=== PATIENT | female | born 1960 ===

== ENCOUNTER → 2020-07-22 10:40 | Outpatient (BNVA) | payer BC, SELFPAY | PROVIDERS: PCP Internal Medicine; Visit Provider Obstetrics & Gynecology | DX: Z76.89 Persons encountering health services in other specified circumstances (principal) ==

== ENCOUNTER → 2020-08-24 13:34 | Outpatient (BNVA) | payer BC, SELFPAY | PROVIDERS: PCP Internal Medicine; Visit Provider Physician Assistant ==

== ENCOUNTER 2020-12-03 12:55 | Outpatient (REF) | payer BC, SELFPAY ==
[2020-12-03 13:27] LABS: COVID-19 Test Negative (Negative)
== END 2020-12-03 12:56 | disposition home or self-care (01) ==
LOC: HO.LAB 12:55
PROVIDERS: Visit Provider Internal Medicine
DX: Z20.822 Contact with and (suspected) exposure to COVID-19 (principal)
CPT/HCPCS: 36415; 87635; C9803

== ENCOUNTER 2021-01-19 16:34 | Outpatient (REF) | payer BC, SELFPAY ==
--- NOTE | ~2021-01-19 | XR_ITS ---
EXAMINATION: XR RIBS, RIGHT CLINICAL INFORMATION: Pleurodynia. COMPARISON: Chest radiographs 12/03/2019, 09/22/2017. TECHNIQUE: Frontal view chest and 3 views right ribs are obtained for a total of 4 views. FINDINGS: There is no visible right rib fracture or rib destructive process. The lungs are clear. There is no pneumothorax or pleural reaction. No airspace consolidation or ground-glass opacity. The costophrenic sulci are clear. The heart is normal in size. The hilar and mediastinal contours are normal. No visible acute bony abnormality. There are degenerative changes thoracic spine. XR/XR ribs RT min 3V w CXR1V IMPRESSION: Unremarkable examination.
== END 2021-01-19 16:35 | disposition home or self-care (01) ==
LOC: HO.XRAY 16:34
PROVIDERS: PCP Internal Medicine; Visit Provider Physician Assistant
DX: R07.81 Pleurodynia (principal)
CPT/HCPCS: 71101

== ENCOUNTER 2021-01-26 12:22 | Outpatient (REF) | payer BC, SELFPAY ==
--- NOTE | ~2021-01-26 | XR_ITS ---
EXAMINATION: XR THORACIC SPINE CLINICAL INFORMATION: Thoracic radiculopathy. COMPARISON: Chest radiograph 12/03/2019 TECHNIQUE: 3 views of the thoracic spine were obtained. FINDINGS: There is a mild scoliosis convex to the left. Mild degenerative changes are present with some minimal endplate disease. Disc spaces are relatively well preserved as are vertebral heights. Apparent spinal lines appear normal. No bony destructive lesions or acute fractures are seen. XR/XR thoracic spine 3V IMPRESSION: Mild degenerative changes as described above..
== END 2021-01-26 12:23 | disposition home or self-care (01) ==
LOC: HO.XRAY 12:22
PROVIDERS: PCP Internal Medicine; Visit Provider Physician Assistant
DX: M54.14 Radiculopathy, thoracic region (principal)
CPT/HCPCS: 72072

== ENCOUNTER 2021-02-02 13:23 | Outpatient (REF) | payer BC, SELFPAY ==
--- NOTE | ~2021-02-02 | CT_ITS ---
EXAMINATION: CT CHEST WITHOUT CONTRAST CLINICAL INFORMATION: Pain COMPARISON: Previous chest, rib and thoracic spine radiograph x-ray earlier this month TECHNIQUE: Multidetector volumetric CT imaging of the chest was done. Axial MIP volume rendering provided. Sagittal and coronal reformatted images were obtained. This CT examination was performed using dose optimization techniques as appropriate, variously including the following: *Automated exposure control *Adjustment of mA and/or kV according to patient size (this includes techniques or standardized protocols for targeted exams where dose is matched to indication/reason for exam; i.e. extremities or head) *Use of iterative reconstruction technique DLP: 10 mGy-cm FINDINGS: SECURITY ASSESSOR: Unremarkable LUNGS: There is a small 2 mm peripheral or subpleural right upper lobe nodule adjacent to the minor fissure axial image 227 series 8. This probably represents a subpleural lymph node. The lungs are otherwise clear. MEDIASTINUM: There is mild coronary artery calcification. The mediastinum is otherwise normal. PLEURA: There is no pleural effusion. No pleural mass or thickening. There is a small posterior right diaphragmatic hernia sac. AXILLA: No lymphadenopathy. UPPER ABDOMEN: There are small stones in the upper pole of the right kidney. OSSEOUS STRUCTURES: There is slight loss of height of superior endplate of the T12 vertebral body and increased sclerosis suggestive of a mild compression fracture. This may be recent. CT/CT chest wo con IMPRESSION: Mild probably recent T12 vertebral body compression fracture. Small 2 mm right pulmonary nodule. According to the UPDATED 2017 Fleischner Society recommendations, the advised follow-up imaging for less than 6 mm nodule: Low risk, no chest CT follow-up and high risk, optional chest CT follow-up in one year. Mild coronary artery calcification. Small right renal stones.
== END 2021-02-02 13:24 | disposition home or self-care (01) ==
LOC: HO.CT 13:23
PROVIDERS: PCP Internal Medicine; Visit Provider Internal Medicine
DX: R10.9 Unspecified abdominal pain (principal)
CPT/HCPCS: 71250

== ENCOUNTER 2021-02-16 11:26 | Outpatient (REF) | payer BC, SELFPAY ==
[2021-02-16 13:50] LABS: Alanine Aminotransferase 31 U/L (0-31); Albumin Level 4.3 g/dL (3.5-5.0); Alkaline Phosphatase 110 U/L (39-117); Anion Gap 13 (12-20); Aspartate Amino Transferase 26 U/L (5-31); Bilirubin Total 0.5 mg/dL (0.0-1.0); Blood Urea Nitrogen 12 mg/dL (9-16); Calcium 9.4 mg/dL (8.4-10.2); Carbon Dioxide 26 mmol/L (22-29); Chloride 106 mmol/L (96-108); Estimated Glomerular Filt Rate > 60; Glucose Random 89 mg/dL (60-115); Potassium 4.2 mmol/L (3.3-5.1); Sodium 141 mmol/L (135-145); Total Protein 6.9 g/dL (6.5-8.0)
[2021-02-16 14:12] LABS: Vitamin D 25-OH Total 26.4 ng/mL (>30)
== END 2021-02-16 11:27 | disposition home or self-care (01) ==
LOC: HO.LAB 11:26
PROVIDERS: PCP Internal Medicine; Visit Provider Internal Medicine Endocrinology, Diabetes & Metabolism
DX: M80.80XS Other osteoporosis with current pathological fracture, unspecified site, sequela (principal)
CPT/HCPCS: 36415; 80053; 82306

== ENCOUNTER 2021-02-17 11:40 | Outpatient (REF) | payer BC, SELFPAY ==
[2021-02-22 15:22] LABS: N-Telopeptide 49 (see note); NTXCreaRU 77 mg/dL (20-275)
== END 2021-02-17 11:41 | disposition home or self-care (01) ==
LOC: HO.LNP 11:40
PROVIDERS: Visit Provider Internal Medicine Endocrinology, Diabetes & Metabolism
DX: M80.80XS Other osteoporosis with current pathological fracture, unspecified site, sequela (principal)
CPT/HCPCS: 82523

== ENCOUNTER 2021-02-24 12:27 | Outpatient (REF) | payer BC, SELFPAY ==
[2021-02-26 08:24] LABS: HBc Num1 0.07 S/CO (0.00-0.79); HBsAGNum1 0.16 S/CO (0.00-0.99); Hepatitis B Core Antibody Nonreactive (Nonreactive); Hepatitis B Surface Antigen Negative (Negative); ~HepC Num1 0.19 S/CO (0.00-0.79); ~Hepatitis C Antibody Nonreactive (Nonreactive)
[2021-02-26 08:41] LABS: HBS Num1 > 1000.00 mIU/mL (0-7.99); ~Hepatitis B Surface Antibody REACTIVE (Nonreactive)
[2021-03-03 08:11] LABS: HCV Log PCR <1.18 NOT DETECTED Log IU/mL (NOT DETECTED); HepC Viral Load <15 NOT DETECTED IU/mL (NOT DETECTED)
== END 2021-02-24 12:28 | disposition home or self-care (01) ==
LOC: HO.LAB 12:27
PROVIDERS: PCP Internal Medicine; Visit Provider Physician Assistant
DX: Z01.84 Encounter for antibody response examination (principal); Z11.3 Encounter for screening for infections with a predominantly sexual mode of transmission; Z11.59 Encounter for screening for other viral diseases; Z91.89 Other specified personal risk factors, not elsewhere classified
CPT/HCPCS: 36415; 86704; 86706; 86803; 87340; 87522

== ENCOUNTER 2021-03-24 11:00 | Outpatient (RCR) | payer BC, SELFPAY ==
--- NOTE | 2021-03-11 13:43 | MHC.PT.EP ---
[facility] [place] Office [place] Office [place] Office [address] Norma Ordaz [address] [phone] F: [phone] F: [phone] F: [phone] F: [phone] Physical Therapy Plan of Care Date of Evaluation: Date of Surgery: N/A Diagnosis: s/p T12 fracture Assessment: Pt is a 60 year old female who presents to therapy with symptoms of insidious pain in the back that wraps around the ribs s/p a T10 fracture. Self reported activity limitations include working walking, swimming, lifting heavy objects and dancing. Pt presents with increased thoracic kyphosis, rounded shoulders and forward head. Pt received education on posture and was given scap squeezes to do at home. Pt should benefit from increasing rib mobility and increasing strength in the UE's, periscap region, and posterior chain to help support the back. She will be seen 2x a week for 4 weeks and will be reassessed if further treatment is necessary. Frequency and Duration: The patient will be seen 2x a week for 4 weeks. Short Term Goals: Pt will be consistent with HEP in order to maximize benefits of therapy in 2 weeks. Pt will decrease pain at rest from a 4 to a 1 in order to return to daily activities in 2 weeks. Retirement Goals: Pt will decrease pain from 8 at worst to a 4 with activity in 4 weeks in order to show improvement in pain reduction in order to return to work. Pt will be able to walk > 30 min without pain in 4 weeks in order to return to daily walking routine and work. Treatment Plan: Modalities to reduce pain, spasms and effusion. Manual therapy to restore motion and function. Therapeutic exercise to improve strength and flexibility. Neuromuscular re-education for posture and balance. Therapeutic activities to return to functional activities of daily living. Electronically signed by: Mira Griffith PT, DPT Please sign and return to therapist. Thank you for your referral.
== END 2021-04-16 10:31 | disposition home or self-care (01) ==
LOC: HO.PT 11:00
PROVIDERS: PCP Internal Medicine; Visit Provider Internal Medicine
DX: M54.14 Radiculopathy, thoracic region (principal)
CPT/HCPCS: 97162; 97530; 97535

== ENCOUNTER → 2021-05-20 09:48 | Outpatient (BNVA) | payer BC, SELFPAY | PROVIDERS: PCP Internal Medicine; Visit Provider Obstetrics & Gynecology ==

== ENCOUNTER 2021-08-04 09:06 | Outpatient (REF) | payer BC, SELFPAY ==
--- NOTE | ~2021-08-04 | CT_ITS ---
EXAMINATION: CT THORACIC SPINE WITHOUT CONTRAST CLINICAL INFORMATION: Trauma. Right compression fracture. COMPARISON: Thoracic spine 01/26/2021 TECHNIQUE: Axial 2 mm thin and reformatted 2 mm thin sagittal coronal images of thoracic spine were obtained without contrast. This CT examination was performed using dose optimization techniques as appropriate, variously including the following: *Automated exposure control *Adjustment of mA and/or kV according to patient size (this includes techniques or standardized protocols for targeted exams where dose is matched to indication/reason for exam; i.e. extremities or head) *Use of iterative reconstruction technique DLP: 427 mGy-cm FINDINGS: On reconstructed thoracic spine the vertebral heights, alignment and disc heights are normal. No visible acute fracture, dislocation or subluxation seen. There are mild superior endplate deformities T2 and T3 vertebra. Rest of the vertebral heights and alignment is maintained normal. There is superior endplate Schmorl's node T11 vertebra. There is loss of T2-T3, T3-T4 and T4-T5 disc heights with mild ventral spondylosis. No lytic or sclerotic process seen. There is no evidence of disc bulge, herniation or spinal stenosis at any of the disc levels. CT/CT thoracic spine wo con IMPRESSION: Superior endplate deformity T12 and T3 vertebra likely old. Mild ventral spondylosis upper dorsal spine. No visible acute fracture or dislocation seen.
== END 2021-08-04 09:07 | disposition home or self-care (01) ==
LOC: HO.CT 09:06
PROVIDERS: PCP Internal Medicine; Visit Provider Internal Medicine
DX: S22.000D Wedge compression fracture of unspecified thoracic vertebra, subsequent encounter for fracture with routine healing (principal)
CPT/HCPCS: 72128

== ENCOUNTER 2021-11-02 13:29 | Outpatient (REF) | payer BC, SELFPAY ==
[2021-11-02 13:57] LABS: Binax Internal Control QC Valid; Binax Now Covid-19 Ag Negative (Negative); Binax Performed by: HO.BONILM
== END 2021-11-02 13:30 | disposition home or self-care (01) ==
LOC: HO.HMGCLDS 13:29
PROVIDERS: Visit Provider Internal Medicine
DX: Z13.89 Encounter for screening for other disorder (principal)

== ENCOUNTER 2021-11-03 21:33 | Emergency (ER) | payer BC, SELFPAY ==
[2021-11-03 21:39] VITALS: BP 160/90; PULSE 93; RESP 19; TEMP 37.3; O2SAT 99; BMI 27.8
[2021-11-03 22:01] LABS: MANUAL DIFF FLAG NO
[2021-11-03 22:03] LABS: Basophils Percent Auto 0.2 % (0-2); Hematocrit 41.3 % (37.0-47.0); Hemoglobin 13.9 g/dl (12.0-16.0); Imm Gran Abs Auto 0.05 X10*3/uL (0.00-0.03); Imm Gran Pct Auto 0.4 % (0.0-0.4); Lymphocytes Absolute Auto 3.2 X10*3/uL (1.2-4.9); Mean Corpuscular HGB Conc 33.7 g/dl (31.0-35.0); Monocytes Absolute Auto 0.9 X10*3/uL (0.1-1.2); Monocytes Percent Auto 7.5 % (2-11); Neutrophils Absolute Auto 8.1 x10*3/uL (2.0-8.3); Neutrophils Percent Auto 65.9 % (45-73); Platelet Count 248 X10*3/uL (160-400); Red Cell Distribution Width 13.2 % (11.0-16.0); White Blood Count 12.4 X10*3/uL (4.8-10.8)
--- NOTE | 2021-11-03 22:17 | ED_ITS ---
HPI - General Adult General Chief complaint: Dental/Oral Stated complaint: facial infection,red and swollen Time Seen by Provider: 11/03/21 22:11 Source: patient Mode of arrival: ambulatory Limitations: no limitations History of Present Illness HPI narrative: Patient is a 61 year old female presenting to the emergency department today with left sided facial swelling. 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 Patient states that she was seen at an [facility] yesterday and they gave her a ZPack but the infection hasn't gotten better. Patient denies any dizziness, lightheadedness, abdominal pain, nausea, vomiting, fever, chills, blurry vision, double vision, loss of vision, chest pain, difficulty breathing, shortness of breath, back pain, night sweats, pain with urination, increased urinary frequency, increased urinary urgency, blood in her urine or stool, syncope or a near syncopal episode, recent trauma or falls, bowel incontinence, bladder incontinence, bowel retention, bladder retention, or any other complaints at this time. Onset (ago): day(s) Location: face Radiation: non-radiation Severity: mild Severity scale (1-10): 3 Quality: dull Pain Consistency: constant Relieving factors: none Exacerbating factors: none Associated symptoms: denies other symptoms Treatments prior to arrival: none Related Data Home Medications Medication Instructions Recorded Confirmed budesonide-formoterol HFA 160 2 puff INHALATION BID 05/05/20 02/16/21 mcg-4.5 mcg/actuation aerosol inhaler (Symbicort) Previous Rx's Medication Instructions Recorded ibuprofen 800 mg tablet 800 mg PO Q8H 10 Days #30 tab 01/26/21 alendronate 70 mg tablet 70 mg PO QWEEK 30 Days #5 tab 02/16/21 calcium citrate 500 mg PO DAILY 30 Days #60 tab 02/16/21 cholecalciferol (vitamin D3) 25 25 mcg PO DAILY 30 Days #30 cap 02/16/21 mcg (1,000 unit) capsule tizanidine 4 mg tablet 4 mg PO TID PRN 10 Days #30 tab 05/05/21 erythromycin 5 mg/gram (0.5 %) eye 0.5 inch OPHTHALMIC (EYE) TID #1 g 08/02/21 ointment lorazepam 0.5 mg tablet 0.5 mg PO TID PRN 15 Days #45 tab 08/02/21 meloxicam 15 mg tablet (Mobic) 15 mg PO DAILY #14 tab 08/02/21 montelukast 10 mg tablet 10 mg PO DAILY 30 Days #30 tab 10/29/21 albuterol sulfate 90 mcg/actuation 2 puff INHALATION Q4-6H #6.7 g 11/02/21 aerosol inhaler (ProAir HFA) azithromycin 250 mg tablet See Rx Instructions PO .COMPLEX #6 11/02/21 tab doxycycline hyclate 100 mg capsule 100 mg PO BID 7 Days #14 cap 11/03/21 Allergies Allergy/AdvReac Type Severity Reaction Status Date / Time amoxicillin [AMOXICILLIN] Allergy Unknown ANAPHYLAXIS Verified 11/02/21 12:52 codeine [CODEINE] Allergy Unknown UNKNOWN Verified 11/02/21 12:52 guaifenesin [Mucinex] Allergy Unknown Unknown Verified 11/02/21 12:52 Iodinated Contrast Media Allergy Unknown ANAPHYLAXIS Verified 11/02/21 12:52 [IV CONTRAST] levalbuterol [From XOPENEX] Allergy Unknown DIFFICULTY Verified 11/02/21 12:52 BREATHING naproxen Allergy Unknown Unknown Verified 11/02/21 12:52 penicillin V Allergy Unknown anaphylaxis Verified 11/02/21 12:52 Penicillins [PENICILLINS] Allergy Unknown ANAPHYLAXIS Verified 11/02/21 12:52 Codeine Phosphate Allergy Unknown Unknown Uncoded 11/02/21 12:52 ct dye Allergy Unknown anaphylaxis Uncoded 11/02/21 12:52 IV Contrast Allergy Unknown Unknown Uncoded 11/02/21 12:52 seasonal/environmental Allergy Unknown Unknown Uncoded 11/02/21 12:52 tomatoes,OJ,vinegar Allergy Unknown Unknown Uncoded 11/02/21 12:52 Review of Systems Constitutional: Constitutional: Reports no additional constitutional complaints, Denies chills, Denies fever(s) and Denies night sweats Eyes: Eyes: Reports no additional eye complaints, Denies blurry vision, Denies change in vision, Denies diplopia, Denies eye discharge, Denies loss of vision and Denies eye pain ENT: Denies dizziness Comments: left sided facial swelling Cardiovascular: Cardiovascular: Reports no additional cardiovascular complaints, Denies chest pain, Denies lightheadedness, Denies Loss of Consciousness and Denies dyspnea Respiratory: Respiratory: Reports no additional respiratory complaints and Denies dyspnea Gastrointestinal: Gastrointestinal: Reports no additional gastrointestinal complaints, Denies abdominal pain, Denies melena, Denies hematochezia, Denies change in bowel habits and Denies change in stool character Genitourinary: Genitourinary: Denies hematuria, Denies urinary frequency, Denies dysuria, Denies urinary incontinence, Denies urinary hesitancy and Denies urinary urgency Musculoskeletal: Musculoskeletal: Reports no additional musculoskeletal complaints, Denies numbness and Denies tingling Neurologic: Denies dizziness, Denies loss of vision, Denies numbness and Den ies tingling Psychiatric: Psychiatric: Reports no additional psychiatric complaints Endocrine: Endocrine: Reports no additional endocrine complaints Hematologic/Lymphatic: Hematologic/Lymphatic: Reports no additional hematologic/lymphatic complaints Allergic/Immunologic: Allergic/Immunologic: Reports no additional allergic/immunologic complaints PMFSH Past Medical History Attestation statement: The following information was validated with the patient. 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 Sexual orientation: Straight/Heterosexual Gender identity: Female Physical Exam ED Vital Signs: Vital Signs - 24 hr 11/03/21 21:39 Temperature 99.2 F Pulse Rate 93 Respiratory Rate 19 Blood Pressure 160/90 H Pulse Oximetry 99 BMI result Body Mass Index 27.8 Const General: cooperative, no acute distress, alert and awake Nutritional Appearance: well nourished Orientation/consciousness: patient oriented x3 Limitations: no limitations HENMT Head: Yes normal to inspection and Yes atraumatic Ears: hearing grossly normal bilaterally and external ears normal General nose exam: Normal external nose present, no nasal discharge noted and no epistaxis Face and sinus: Yes normal facial exam, No abrasion and No laceration Mouth: Normal oral and palatal mucosa present, no drooling and no muffled voice Eyes General: appearance normal, both eyes and all related structures Periorbital: periorbital findings normal Eyelids: Yes eyelids normal Conjunctivae: conjunctivae normal Pupils: Equal, round and reactive pupils present EOM: EOMs intact bilaterally Neck Neck: Yes normal visual inspection, Yes full ROM and Yes no lymphadenopathy Chest Chest palpation & inspection: normal inspection of the chest Resp Effort & Inspection: normal respiratory effort and able to speak in complete sentences Auscultation: clear to auscultation bilaterally Cardio Rate: regular rate Rhythm: regular rhythm GI Inspection: Yes normal to inspection Skin Other: minimal left sided facial swelling with an abscess to the left lower cheek appreciated. Small wound just inferior to the abscess seen. Neuro General: patient oriented x3 and moves all extremities Cranial nerves: Yes Equal, round and reactive pupils present Cognition (Neuro): normal cognition Motor exam (neuro): 5/5 motor strength present throughout Sensory Exam: Normal double simultaneous stimulation for sensation Coordination: [id number] test normal Extrem General: Yes normal to inspection, Yes full ROM and Yes capillary refill normal Psych Appearance: grossly normal Mental Status: mental status grossly normal Affect: normal affect Attitude: cooperative Thought process: Normal thought process present Thought content: Normal thought content present Insight: Good insight present (Psych) Procedures Abscess I/D Site: face Side (if applicable): left Local Anesthetic: lidocaine 2% Amount of anesthesia used (mL): 5 Technique: needle aspiration Sent for culture/gram staining?: Yes Medical Decision Making [facility] Narrative Medical decision making narrative: Patient is a 61 year old female presenting to the emergency department today with left sided facial swelling. Patient's physical exam showed a small facial wound to the inferior aspect of the left cheek and mild swelling to the left cheek. Patient's blood work showed an elevated WBC count but was otherwise unremarkable. I explained my physical exam findings as well as all test results to the patient. I answered all questions asked by the patient. The abscessed area on the patient's left cheek was drained by Dr. Wise, per procedure note, without incident. Wound culture was sent. I stressed the importance of the patient taking her medication as prescribed. Specifically, her new antibiotic that covers for MRSA. I stressed the importance of the patient following up with her primary care provider. I stressed the importance of the patient returning to the emergency department immediately if her symptoms were to worsen or if she were to develop any dizziness, shortness of breath, difficulty breathing, chest pain, blurry vision, loss of vision, nausea, vomiting, abdominal pain, fever, chills, back pain, or any other complaints. Patient verbalized agreement and understanding with this treatment plan and discharge. Differential Diagnosis Differential Diagnosis: facial abscess, facial cellulitis Medical Records Medical records reviewed: Yes I reviewed the patient's medical records. Lab Data Result diagrams: 11/03/21 21:56 11/03/21 21:56 Labs: Lab Results 11/03/21 11/03/21 Range/Units 21:56 21:56 WBC 12.4 H (4.8-10.8) X10*3/uL RBC 4.80 (4.20-5.50) X10*6/uL Hgb 13.9 (12.0-16.0) g/dl Hct 41.3 (37.0-47.0) % MCV 86.0 (80.0-98.0) fL MCH 29.0 (27.0-33.0) pg MCHC 33.7 (31.0-35.0) g/dl RDW 13.2 (11.0-16.0) % Plt Count 248 (160-400) X10*3/uL MPV 10.0 (9.4-12.3) fL Immature Gran % (Auto) 0.4 (0.0-0.4) % Neut % (Auto) 65.9 (45-73) % Lymph % (Auto) 26.0 (20-40) % [place] % (Auto) 7.5 (2-11) % Eos % (Auto) 0.0 (0-4) % Baso % (Auto) 0.2 (0-2) % Lymph # (Auto) 3.2 (1.2-4.9) X10*3/uL [place] # (Auto) 0.9 (0.1-1.2) X10*3/uL Eos # (Auto) 0.0 (0.0-0.4) X10*3/uL Baso # (Auto) 0.0 (0.0-0.2) X10*3/uL Abs Immat Gran (auto) 0.05 H (0.00-0.03) X10*3/uL Absolute Neuts (auto) 8.1 (2.0-8.3) x10*3/uL Absolute Nucleated RBC 0.000 (0.0-0.012) X10*3/uL Nucleated RBC % (auto) 0.0 (0.0-0.2) /100WBC Sodium 137 (135-145) mmol/L Potassium 3.9 (3.3-5.1) mmol/L Chloride 102 (96-108) mmol/L Carbon Dioxide 27 (22-29) mmol/L Anion Gap 12 (12-20) BUN 16 (9-16) mg/dL Creatinine 0.74 (0.5-1.4) mg/dL Estim Creat Clear Calc 69.9 Estimated GFR > 60 Random Glucose 126 H (60-115) mg/dL Calcium 9.5 (8.4-10.2) mg/dL Discharge Plan Discharge Clinical Impression: Abscess of face Patient Disposition: Home, Self-Care Additional Instructions: Follow up with your primary care provider. Return to the emergency department immediately if your symptoms worsen or if you develop any dizziness, shortness of breath, difficulty breathing, chest pain, blurry vision, loss of vision, nausea, vomiting, abdominal pain, fever, chills, back pain, or any other complaints. Prescriptions: New doxycycline hyclate 100 mg capsule 100 mg PO BID 7 Days Qty: 14 0RF No Action cholecalciferol (vitamin D3) 25 mcg (1,000 unit) capsule 25 mcg PO DAILY 30 Days Qty: 30 6RF alendronate 70 mg tablet 70 mg PO QWEEK 30 Days Qty: 5 6RF tizanidine 4 mg tablet 4 mg PO TID PRN (Reason: muscle spasms) 10 Days Qty: 30 1RF lorazepam 0.5 mg tablet 0.5 mg PO TID PRN (Reason: anxiety) 15 Days Qty: 45 0RF Rx Instructions: Take ONLY NEEDED montelukast 10 mg tablet 10 mg PO DAILY 30 Days Qty: 30 0RF Rx Instructions: needs an appointment for refills ibuprofen 800 mg tablet 800 mg PO Q8H 10 Days Qty: 30 0RF albuterol sulfate [ProAir HFA] 90 mcg/actuation HFA aerosol inhaler 2 puff inhalation Q4-6H Qty: 6.7 0RF azithromycin 250 mg tablet See Rx Instructions PO .COMPLEX Qty: 6 0RF Rx Instructions: take 500 mg today (day 1), then 250 mg for 4 days (days 2-5) PO erythromycin 5 mg/gram (0.5 %) ointment 0.5 inch ophthalmic (eye) TID Qty: 1 0RF meloxicam [Mobic] 15 mg tablet 15 mg PO DAILY Qty: 14 0RF budesonide-formoterol [Symbicort] 160-4.5 mcg/actuation HFA aerosol inhaler 2 puff inhalation BID 0RF calcium citrate 250 mg calcium tablet 500 mg PO DAILY 30 Days Qty: 60 6RF Referrals: Tre Maldonado MD [Primary Care Provider] - 2 days Print Language: Peruvian
[2021-11-03 22:20] LABS: Anion Gap 12 (12-20); Blood Urea Nitrogen 16 mg/dL (9-16); Calcium 9.5 mg/dL (8.4-10.2); Carbon Dioxide 27 mmol/L (22-29); Chloride 102 mmol/L (96-108); Creatinine Clr Calc Pharmacy 69.9; Estimated Glomerular Filt Rate > 60; Glucose Random 126 mg/dL (60-115); Potassium 3.9 mmol/L (3.3-5.1); Sodium 137 mmol/L (135-145)
[2021-11-03] MEDS: Acetaminophen 325 MG TABLET 650 MG PO (23:09)
[2021-11-03] MEDS: Lidocaine HCl 2 % 20 ML VIAL 5 ML INFILTRATI (23:13)
== END 2021-11-03 23:20 | disposition home or self-care (01) ==
PROVIDERS: Emergency Provider Internal Medicine; PCP Internal Medicine
DX: L02.01 Cutaneous abscess of face (principal); L03.211 Cellulitis of face; Z86.14 Personal history of Methicillin resistant Staphylococcus aureus infection
CPT/HCPCS: 10060; 36415; 80048; 85025; 87071; 87077; 87186; 87205; 99284

== ENCOUNTER 2021-11-05 12:14 | Outpatient (REF) | payer BC, SELFPAY ==
[2021-11-06 08:42] LABS: Mumps Virus IgG Antibody >300.00 AU/mL
[2021-11-06 08:52] LABS: Rubeola IgG (Measles) >300.00 AU/mL
[2021-11-07 18:42] LABS: TS Negative Control Passed; TS Panel A 0; TS Panel B 0; TS Positive Control Passed; TSpotTB Negative (Negative)
[2021-11-08 08:28] LABS: HBc Num1 0.15 S/CO (0.00-0.79); HBsAGNum1 0.19 S/CO (0.00-0.99); Hepatitis B Core Antibody Nonreactive (Nonreactive); Hepatitis B Surface Antigen Negative (Negative)
[2021-11-08 08:46] LABS: HBS Num1 > 1000.00 mIU/mL (0-7.99); ~Hepatitis B Surface Antibody REACTIVE (Nonreactive)
== END 2021-11-05 12:15 | disposition home or self-care (01) ==
LOC: HO.LAB 12:14
PROVIDERS: PCP Internal Medicine; Visit Provider Internal Medicine
DX: Z28.39 Other underimmunization status (principal)
CPT/HCPCS: 36415; 86481; 86704; 86706; 86735; 86762; 86765; 86787; 87340

== ENCOUNTER 2022-03-09 15:37 | Outpatient (REF) | payer BC, SELFPAY ==
[2022-03-09 16:27] LABS: COVID-19 Test Negative (Negative)
== END 2022-03-09 15:38 | disposition home or self-care (01) ==
LOC: HO.LAB 15:37
PROVIDERS: Visit Provider Internal Medicine
DX: Z20.822 Contact with and (suspected) exposure to COVID-19 (principal)
CPT/HCPCS: 87635; C9803

== ENCOUNTER 2022-03-16 18:20 | Emergency (ER) | payer OTHER, BC, SELFPAY ==
[2022-03-16 18:25] VITALS: BP 138/82; PULSE 79; O2SAT 97
[2022-03-16 18:37] VITALS: BP 130/70; PULSE 66; RESP 18; TEMP 36.4; O2SAT 100; BMI 27.3
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
== END 2022-03-16 20:29 | disposition home or self-care (01) ==
PROVIDERS: Emergency Provider Emergency Medicine; PCP Internal Medicine
DX: S39.012A Strain of muscle, fascia and tendon of lower back, initial encounter (principal); V03.00XA Pedestrian on foot injured in collision with car, pick-up truck or van in nontraffic accident, initial encounter; Y93.F9 Activity, other caregiving; Y92.481 Parking lot as the place of occurrence of the external cause; Y99.0 Civilian activity done for income or pay
CPT/HCPCS: 99282; 99283

== ENCOUNTER 2022-03-21 15:03 | Outpatient (REF) | payer OTHER, BC, SELFPAY ==
--- NOTE | ~2022-03-21 | XR_ITS ---
EXAMINATION: XR LUMBOSACRAL SPINE CLINICAL INFORMATION: Low back pain. COMPARISON: 10/10/2013 lumbar spine radiographs. TECHNIQUE: Three views of the lumbosacral spine. FINDINGS: The vertebral bodies and posterior elements are normal. The disc spaces are preserved and the vertebral alignment is normal. The paraspinal soft tissues are normal. XR/XR lumbar spine 2-3V IMPRESSION: Unremarkable lumbar spine.
== END 2022-03-21 15:04 | disposition home or self-care (01) ==
LOC: HO.HMGCX 15:03
PROVIDERS: PCP Internal Medicine; Visit Provider Physician Assistant
DX: M54.50 Low back pain, unspecified (principal); M79.604 Pain in right leg
CPT/HCPCS: 72100

== ENCOUNTER 2022-03-22 11:39 | Outpatient (REF) | payer BC, SELFPAY ==
[2022-03-22 13:39] LABS: Phosphorus 3.6 mg/dL (2.7-4.5)
== END 2022-03-22 11:40 | disposition home or self-care (01) ==
LOC: HO.10HDL 11:39
PROVIDERS: Visit Provider Internal Medicine Endocrinology, Diabetes & Metabolism
DX: M81.0 Age-related osteoporosis without current pathological fracture (principal)
CPT/HCPCS: 36415; 84100

== ENCOUNTER 2022-05-24 17:29 | Outpatient (REF) | payer BC, SELFPAY ==
[2022-05-24 18:21] LABS: Influenza A PCR NEGATIVE (Negative); Influenza B PCR NEGATIVE (Negative); Resp Syncy Virus RNA Qual PCR NEGATIVE (Negative); SARS COV2 PCR INHOUSE NEGATIVE (Negative)
== END 2022-05-24 17:30 | disposition home or self-care (01) ==
LOC: HO.LNP 17:29
PROVIDERS: Visit Provider Emergency Medicine
DX: R68.89 Other general symptoms and signs (principal); Z20.822 Contact with and (suspected) exposure to COVID-19
CPT/HCPCS: 0241U

== ENCOUNTER 2022-05-26 08:55 | Outpatient (REF) | payer BC, SELFPAY ==
[2022-05-31 20:41] LABS: HPV mRNA E6/E7 rflx Not Detected (Not Detected)
== END 2022-05-26 08:56 | disposition home or self-care (01) ==
LOC: HO.LNP 08:55
PROVIDERS: Visit Provider Obstetrics & Gynecology
DX: Z01.419 Encounter for gynecological examination (general) (routine) without abnormal findings (principal)
CPT/HCPCS: 87624; 88142

== ENCOUNTER 2022-06-16 14:13 | Outpatient (REF) | payer BC, SELFPAY ==
--- NOTE | ~2022-06-16 | MM_ITS ---
EXAMINATION: MM SCREENING DIGITAL BREAST TOMOSYNTHESIS, BILATERAL CLINICAL INFORMATION: Screening. Asymptomatic. COMPARISON: Mammography: April 18, 2019 and studies dating back to February 26, 2013 TECHNIQUE: Digital breast tomosynthesis is performed in both the craniocaudal and mediolateral oblique views along with computer-aided detection (CAD). Synthesized 2D images are generated from the tomosynthesis. FINDINGS: There are scattered areas of fibroglandular density (ACR BI-RADS breast composition Category b). There is a stable parenchymal pattern of the left breast with no new abnormal dominant mass or suspicious grouping of microcalcifications. About the medial aspect of the right breast there is a 4 x 3 mm well-circumscribed density approximately 5 cm from the nipple for which targeted ultrasound evaluation is recommended. MM/MM tomosynthesis screening BI IMPRESSION: Right breast density medial aspect for further evaluation with ultrasound. ASSESSMENT: BI-RADS 0: Incomplete - Need Additional Imaging Evaluation RECOMMENDATION: Targeted ultrasound evaluation of the right breast. Radiology department staff will contact the patient for additional imaging. This patient's information was entered into a reminder system with a target due date for their next mammogram.
== END 2022-06-16 14:14 | disposition home or self-care (01) ==
LOC: HO.MAMMO 14:13
PROVIDERS: PCP Internal Medicine; Visit Provider Obstetrics & Gynecology
DX: Z12.31 Encounter for screening mammogram for malignant neoplasm of breast (principal)
CPT/HCPCS: 77063; 77067

== ENCOUNTER 2022-06-22 13:15 | Outpatient (REF) | payer BC, SELFPAY ==
--- NOTE | ~2022-06-22 | US_ITS ---
EXAMINATION: US DIAGNOSTIC ULTRASOUND BREAST, RIGHT CLINICAL INFORMATION: Small smooth nodule under 5 mm medial right breast at screening mammography. COMPARISON: Mammography 06/16/2022, 04/18/2019, 08/26/2016. TECHNIQUE: Ultrasound right breast is targeted to the upper inner breast using grayscale imaging and color Doppler without and with harmonics. FINDINGS: There is a circumscribed anechoic nodule 1:00 position 5 cm from nipple measuring 4 x 3 mm. There is no increased or decreased through transmission of sound. No associated color flow. Small cyst suspected. Results are discussed with the patient at time of visit. US/US breast RT limited IMPRESSION: -Probable cyst corresponding to small nodule on mammography. ASSESSMENT: BI-RADS 3: Probably Benign RECOMMENDATION: Diagnostic right mammography in 6 months. This patient's information was entered into a reminder system with a target due date for their next mammogram.
== END 2022-06-22 13:16 | disposition home or self-care (01) ==
LOC: HO.MAMMO 13:15
PROVIDERS: PCP Internal Medicine; Visit Provider Obstetrics & Gynecology
DX: R92.2 Inconclusive mammogram (principal)
CPT/HCPCS: 76642

== ENCOUNTER 2022-07-05 11:00 | Outpatient (RCR) | payer OTHER, SELFPAY ==
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
== END 2022-07-05 14:45 | disposition home or self-care (01) ==
LOC: HO.PT 11:00
PROVIDERS: Visit Provider Physician Assistant
DX: M54.50 Low back pain, unspecified (principal)
CPT/HCPCS: 97014; 97110; 97140; 97161; 97530

== ENCOUNTER → 2022-07-27 13:44 | Outpatient (BNVA) | payer BC, SELFPAY | PROVIDERS: PCP Internal Medicine; Visit Provider Internal Medicine Endocrinology, Diabetes & Metabolism | DX: Z13.89 Encounter for screening for other disorder (principal) ==

== ENCOUNTER 2022-09-20 14:00 | Outpatient (RCR) | payer OTHER, BC, SELFPAY ==
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
== END 2022-09-29 14:43 | disposition home or self-care (01) ==
LOC: HO.PT 14:00
PROVIDERS: PCP Internal Medicine; Visit Provider Internal Medicine
DX: M54.50 Low back pain, unspecified (principal)
CPT/HCPCS: 97110; 97112; 97162

== ENCOUNTER 2022-12-23 13:42 | Outpatient (REF) | payer BC, SELFPAY ==
--- NOTE | ~2022-12-23 | MM_ITS ---
EXAMINATION: MM DIAGNOSTIC DIGITAL BREAST TOMOSYNTHESIS, RIGHT US BREAST, LIMITED, TARGETED, RIGHT CLINICAL INFORMATION: Six-month follow-up question cyst. COMPARISON: Mammography: 06/22/2022 and studies dating back to 12/16/2011 TECHNIQUE: Digital breast tomosynthesis is performed in both the craniocaudal and mediolateral oblique views along with computer-aided detection (CAD). Synthesized 2D images are generated from the tomosynthesis. Targeted right breast ultrasound. FINDINGS: MAMMOGRAM, RIGHT: There are scattered areas of fibroglandular density (ACR BI-RADS breast composition Category b). There is persistence of a 3 mm rounded density about the medial aspect of the right breast. No new abnormal dominant masses or suspicious grouping of microcalcifications identified. ULTRASOUND, RIGHT: Targeted ultrasound evaluation of the right breast at the 1 o'clock position approximately 5 cm from the nipple demonstrates a 3 x 2 x 4 mm well-circumscribed hypoechoic/anechoic lesion without internal vascularity and with increased through sound transmission. This is stable compared to most previous study and has the characteristics of a cyst. No abnormal distal sound shadowing is seen. No edematous change within the surrounding parenchyma is noted. Results are discussed with the patient at time of visit. MM/MM tomosynthesis diagnostic RT IMPRESSION: There are no significant changes from prior study. Appearance is of a simple cyst. ASSESSMENT: BI-RADS 2: Benign RECOMMENDATION: Routine annual mammography screening. This patient's information was entered into a reminder system with a target due date for their next mammogram.
== END 2022-12-23 13:43 | disposition home or self-care (01) ==
LOC: HO.MAMMO 13:42
PROVIDERS: PCP Internal Medicine; Visit Provider Obstetrics & Gynecology
DX: R92.2 Inconclusive mammogram (principal)
CPT/HCPCS: 76642; 77061; 77065

== ENCOUNTER 2023-03-13 09:59 | Outpatient (AMB) | payer BC, SELFPAY ==
--- NOTE | 2023-03-13 10:58 | AM.OFFWIN_ITS ---
Intake Vital Signs 03/13/23 11:04 Height 5 ft 1 in BP 120/60 Blood Pressure Location Rt brachial Position Sitting Pulse 89 Pulse Source Pulse Oximeter Temp 98.1 F Temp Source Temporal Artery Scan Pulse Oximetry (%) 96 Oxygen Delivery Method Room Air Intake Visit Reasons: EP infection in left eye (lobby) Intake Note: Pt is here c/o possible left eye infection. Pt states she had a stye on her eye on Monday and today it became worse. Pt also states the let side of her face is also swollen. Patient Tobacco Use Status: Never used Tobacco Allergies amoxicillin [AMOXICILLIN] Allergy (Unknown, Verified 03/13/23 11:03) ANAPHYLAXIS codeine [CODEINE] Allergy (Unknown, Verified 03/13/23 11:03) UNKNOWN guaifenesin [Mucinex] Allergy (Unknown, Verified 03/13/23 11:03) Unknown Iodinated Contrast Media [IV CONTRAST] Allergy (Unknown, Verified 03/13/23 11:03) ANAPHYLAXIS levalbuterol [From XOPENEX] Allergy (Unknown, Verified 03/13/23 11:03) DIFFICULTY BREATHING naproxen Allergy (Unknown, Verified 03/13/23 11:03) Unknown penicillin V Allergy (Unknown, Verified 03/13/23 11:03) anaphylaxis Penicillins [PENICILLINS] Allergy (Unknown, Verified 03/13/23 11:03) ANAPHYLAXIS lidocaine Adverse Reaction (Unknown, Verified 03/13/23 11:03) Irritated, itchy Codeine Phosphate Allergy (Unknown, Uncoded 03/13/23 11:03) Unknown ct dye Allergy (Unknown, Uncoded 03/13/23 11:03) anaphylaxis IV Contrast Allergy (Unknown, Uncoded 03/13/23 11:03) Unknown seasonal/environmental Allergy (Unknown, Uncoded 03/13/23 11:03) Unknown tomatoes,OJ,vinegar Allergy (Unknown, Uncoded 03/13/23 11:03) Unknown Do you need a note to return to daycare/school/sports/work: No HPI EP infection in left eye (lobby) HPI Details Patient presents with infection of the left eye. She notes this started as a small stye 3 days ago she has been applying warm compresses and using gold erythromycin ointment symptoms have been worsening and now is experi encing bloody and purulent discharge from her left lower lid with swelling. She also notes that she gets ?stones ?and points to the left lower jaw she notes she has 1 now and ?they give her Keflex ?and if this does not work ?they cut under her tongue to remove it ? at ENT. She states it has been several years since she has had any procedures with anti, cannot remember who her ENT at this time. There are no notes from ENT available in her chart. She does not have a current eye physician. 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 Denies severe headache, pain with extraocular movement, epistaxis or discharge from the nose, sore throat, fever. [facility] Medical History Anxiety Asthma Compression fracture of T12 vertebra Moderate persistent asthma, uncomplicated Osteoporosis Renal calculus, right Surgical History H/O eye surgery H/O right knee surgery Hx of tonsillectomy Family History Father Family history unknown Mother Family history unknown Social History Household Members Other:: fiance Housing: Apartment Alcohol intake: current Alcohol intake frequency: holidays/special occasions only Patient Tobacco Use Status: Never used Tobacco e-Cigarette/Vaping Use: Never Used Second Hand Smoke Exposure: No service: No Current occupational status: employed 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 Sexual orientation: Straight/Heterosexual Gender identity: Female Cognitive needs: No Hearing needs: No Vision needs: Yes Female Reproductive History Menstrual Age of Menarche: 12 Review of Systems Const Reports as per HPI and Reports no additional complaints Eyes Reports no additional complaints ENT Reports no additional complaints and Reports as per HPI Card Reports as per HPI and Reports no additional complaints Resp Reports as per HPI and Reports no additional complaints Skin/Breast Denies lesions Neuro Reports no additional complaints and Reports as per HPI Physical Exam Vital Signs: Last Vital Signs Temp 98.1 F 03/13/23 11:04 Pulse 89 03/13/23 11:04 BP 120/60 03/13/23 11:04 Pulse Ox 96 03/13/23 11:04 Oxygen Delivery Method Room Air 03/13/23 11:04 Const General: cooperative, comfortable and in distress moderate Orientation/consciousness: patient oriented x3 HEENT Ears: external ears normal General nose exam: Normal external nose present, Normal nares present and Normal nasal mucous membranes and turbinates present Face and sinus: Yes sinuses nontender and Yes Facial tenderness on exam of face and sinuses (Along the left face with no palpable stone mild edema likely dependent from) Mouth: Normal oral and palatal mucosa present Throat: Yes posterior oropharynx normal Eyes Alignment and Position: alignment normal Periorbital: periorbital findings abnormal (Mild edema of the left lower lid, upper lid in EOM within normal limits) Eyelids: Yes eyelid abnormality (Left lower lid is edematous with purulent and serous discharge in multiple ) Conjunctivae: conjunctival abnormal (Injected) left Corneas: corneas normal Pupils: Equal, round and reactive pupils present EOM: EOMs intact bilaterally Neck Neck: Yes no lymphadenopathy Resp Effort & Inspection: normal respiratory effort Auscultation: clear to auscultation bilaterally Cardio Rate: regular rate Rhythm: regular rhythm Heart sounds: S1 normal heart sound present and S2 normal heart sound present Neuro General: patient oriented x3 Cranial nerves: Yes Equal, round and reactive pupils present Assessment & Plan Assessment & Plan (1) Purulent eye infection: Code(s): H44.009 - Unspecified purulent endophthalmitis, unspecified eye Plan: Advise patient warm compresses only as needed advised more trauma to Tender eye area. Start antibiotics swells drops. If there is any worsening of pain, headache, discharge or swelling or vision she needs to be seen in emergency department I have put in a stat referral to local eye doctor for her for follow- up. If she has persistent swelling in the lower jaw she should follow-up with her ENT. Again gave her strict instructions if there is no improvement in her symptoms over the next 24 hour she or any worsening she needs to be seen in emergency department. Orders: Referrals Ophthalmology Referral H44.009 - Unspecified purulent endophthalmitis, unspecified eye Medications: New sulfamethoxazole-trimethoprim 800-160 mg (Bactrim DS) 1 tab PO Q12H 10 days 20 tabs 0RF ibuprofen TID x 3 weeks for left knee pain then PRN thereafter for pain 800 mg PO TID 90 tabs 0RF cephalexin 500 mg PO Q6H 10 days 40 caps 0RF polymyxin B sulf-trimethoprim 10,000 unit- 1 mg/mL (Polytrim) while awake; do not exceed 6 doses in 24 hours 1 drp ophthalmic (eye) QID 7 days 10 mL 0RF Coding Level of Care Code Est Pt Level 4 (29412) Diagnoses Purulent eye infection H44.009
[2023-03-13 11:04] VITALS: BP 120/60; PULSE 89; TEMP 36.7; O2SAT 96
== END 2023-03-13 12:27 | disposition home or self-care (01) ==
PROVIDERS: PCP Internal Medicine; Visit Provider Physician Assistant
DX: H44.009 Unspecified purulent endophthalmitis, unspecified eye (principal)
CPT/HCPCS: 99214

== ENCOUNTER 2023-03-21 14:36 | Outpatient (AMB) | payer BC, SELFPAY ==
[2023-03-21 15:26] VITALS: BP 128/58; PULSE 70; TEMP 37.1; O2SAT 99; BMI 25.5
--- NOTE | 2023-03-21 15:26 | AM.OFFWIN_ITS ---
Intake Vital Signs 03/21/23 15:26 Height 5 ft 1 in Weight 135 lb 2 oz BMI 25.5 BP 128/58 L Blood Pressure Location Lt brachial Position Sitting Pulse 70 Pulse Source Pulse Oximeter Temp 98.7 F Temp Source Temporal Artery Scan Pulse Oximetry (%) 99 Oxygen Delivery Method Room Air Intake Visit Reasons: EP, Bug Bites in legs Intake Note: Pt is here c/o bug bites on both legs. Pt states [place] was at the park and was bit by mosquitos but is not sure it was mosquitos. Pt has purple and red bumps all over her legs. Patient Tobacco Use Status: Never used Tobacco Allergies amoxicillin [AMOXICILLIN] Allergy (Unknown, Verified 03/22/23 19:15) ANAPHYLAXIS codeine [CODEINE] Allergy (Unknown, Verified 03/22/23 19:15) UNKNOWN guaifenesin [Mucinex] Allergy (Unknown, Verified 03/22/23 19:15) Unknown Iodinated Contrast Media [IV CONTRAST] Allergy (Unknown, Verified 03/22/23 19:15) ANAPHYLAXIS levalbuterol [From XOPENEX] Allergy (Unknown, Verified 03/22/23 19:15) DIFFICULTY BREATHING naproxen Allergy (Unknown, Verified 03/22/23 19:15) Unknown penicillin V Allergy (Unknown, Verified 03/22/23 19:15) anaphylaxis Penicillins [PENICILLINS] Allergy (Unknown, Verified 03/22/23 19:15) ANAPHYLAXIS lidocaine Adverse Reaction (Unknown, Verified 03/22/23 19:15) Irritated, itchy Codeine Phosphate Allergy (Unknown, Uncoded 03/22/23 19:15) Unknown ct dye Allergy (Unknown, Uncoded 03/22/23 19:15) anaphylaxis IV Contrast Allergy (Unknown, Uncoded 03/22/23 19:15) Unknown seasonal/environmental Allergy (Unknown, Uncoded 03/22/23 19:15) Unknown tomatoes,OJ,vinegar Allergy (Unknown, Uncoded 03/22/23 19:15) Unknown Medication List - Last Reconciled 03/22/23 by Randy Hutton MD albuterol sulfate 90 mcg/actuation (ProAir HFA) 2 puffs inhalation Q4-6H budesonide-formoterol 160-4.5 mcg/actuation (Symbicort) 2 puffs inhalation BID calcium citrate 500 mg (2 x 250 mg calcium) PO DAILY 30 days cephalexin 500 mg PO Q6H 10 days cholecalciferol (vitamin D3) 25 mcg PO DAILY 30 days erythromycin 0.5 inches ophthalmic (eye) TID ibuprofen 800 mg PO TID montelukast 10 mg PO DAILY 90 days polymyxin B sulf-trimethoprim 10,000 unit- 1 mg/mL (Polytrim) 1 drp ophthalmic (eye) QID 7 days sertraline 50 mg PO DAILY 30 days sulfamethoxazole-trimethoprim 800-160 mg (Bactrim DS) 1 tab PO Q12H 10 days Do you need a note to return to daycare/school/sports/work: No HPI EP, Bug Bites in legs HPI Details 62-year-old female presents to the office for a sick visit. She is reporting red lesions in her lower extremity. [facility] Medical History Anxiety Asthma Compression fracture of T12 vertebra Moderate persistent asthma, uncomplicated Osteoporosis Renal calculus, right Surgical History H/O eye surgery H/O right knee surgery Hx of tonsillectomy Family History Father Family history unknown Mother Family history unknown Social History Household Members Other:: fiance Housing: Apartment Alcohol intake: current Alcohol intake frequency: holidays/special occasions only Patient Tobacco Use Status: Never used Tobacco e-Cigarette/Vaping Use: Never Used Second Hand Smoke Exposure: No service: No Current occupational status: employed 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 Slightly prominent with surrounding, minimal induration. One papule has significant bruising around it. Assessment & Plan Assessment & Plan (1) Rash: Code(s): R21 - Rash and other nonspecific skin eruption Plan: Most likely insect bites. Blood work has been ordered to check for low platelets. Orders: Orders Basic Metabolic Panel 03/21/23 R21 - Rash and other nonspecific skin eruption Complete Blood Count no Diff 03/21/23 R21 - Rash and other nonspecific skin eruption Coding Level of Care Code Est Pt Level 3 (84302) Diagnoses Rash R21
== END 2023-03-21 16:05 | disposition home or self-care (01) ==
PROVIDERS: PCP Internal Medicine; Visit Provider Internal Medicine
DX: R21 Rash and other nonspecific skin eruption (principal)
CPT/HCPCS: 99213

== ENCOUNTER 2023-03-21 16:24 | Outpatient (REF) | payer BC, SELFPAY ==
[2023-03-21 17:16] LABS: Hematocrit 41.9 % (37.0-47.0); Hemoglobin 14.3 g/dl (12.0-16.0); Mean Corpuscular HGB Conc 34.1 g/dl (31.0-35.0); Mean Corpuscular Hemoglobin 29.9 pg (27.0-33.0); Mean Corpuscular Volume 87.5 fL (80.0-98.0); Mean Platelet Volume 10.7 fL (9.4-12.3); Platelet Count 308 X10*3/uL (160-400); Red Blood Count 4.79 X10*6/uL (4.20-5.50); Red Cell Distribution Width 13.3 % (11.0-16.0); White Blood Count 12.4 X10*3/uL (4.8-10.8)
[2023-03-21 17:54] LABS: Anion Gap 13 (12-20); Blood Urea Nitrogen 17 mg/dL (9-16); Calcium 9.5 mg/dL (8.4-10.2); Carbon Dioxide 26 mmol/L (22-29); Chloride 105 mmol/L (96-108); Estimated Glomerular Filt Rate > 60; Glucose Random 87 mg/dL (60-115); Potassium 3.4 mmol/L (3.3-5.1); Sodium 141 mmol/L (135-145)
== END 2023-03-21 16:25 | disposition home or self-care (01) ==
LOC: HO.LAB 16:24
PROVIDERS: PCP Internal Medicine; Visit Provider Internal Medicine
DX: R21 Rash and other nonspecific skin eruption (principal)
CPT/HCPCS: 36415; 80048; 85027

== ENCOUNTER 2023-06-28 12:26 | Outpatient (AMB) | payer BC, SELFPAY ==
--- NOTE | 2023-06-28 12:41 | MHC.OFFWIV ---
Intake Vital Signs 06/28/23 13:05 Height 5 ft 1 in BP 110/64 Blood Pressure Location Lt brachial Position Sitting Pulse 74 Pulse Source Pulse Oximeter Temp 97.9 F Temp Source Temporal Artery Scan Pulse Oximetry (%) 99 Oxygen Delivery Method Room Air Intake Visit Reasons: EP RT Rib pain Intake Note: Pt is here c/o right rib pain. Patient Tobacco Use Status: Never used Tobacco Allergies amoxicillin [AMOXICILLIN] Allergy (Unknown, Verified 03/22/23 19:15) ANAPHYLAXIS codeine [CODEINE] Allergy (Unknown, Verified 03/22/23 19:15) UNKNOWN guaifenesin [Mucinex] Allergy (Unknown, Verified 03/22/23 19:15) Unknown Iodinated Contrast Media [IV CONTRAST] Allergy (Unknown, Verified 03/22/23 19:15) ANAPHYLAXIS levalbuterol [From XOPENEX] Allergy (Unknown, Verified 03/22/23 19:15) DIFFICULTY BREATHING naproxen Allergy (Unknown, Verified 03/22/23 19:15) Unknown penicillin V Allergy (Unknown, Verified 03/22/23 19:15) anaphylaxis Penicillins [PENICILLINS] Allergy (Unknown, Verified 03/22/23 19:15) ANAPHYLAXIS lidocaine Adverse Reaction (Unknown, Verified 03/22/23 19:15) Irritated, itchy Codeine Phosphate Allergy (Unknown, Uncoded 03/22/23 19:15) Unknown ct dye Allergy (Unknown, Uncoded 03/22/23 19:15) anaphylaxis IV Contrast Allergy (Unknown, Uncoded 03/22/23 19:15) Unknown seasonal/environmental Allergy (Unknown, Uncoded 03/22/23 19:15) Unknown tomatoes,OJ,vinegar Allergy (Unknown, Uncoded 03/22/23 19:15) Unknown HPI HPI Comments History of Present Illness Details [id number] 62-year-old female presents with complaints of right-sided rib pain, she reports she has low bone density and her bones break easily, she reports on Monday she bumped into a door and since then has been having pain year and on Monday night she had nails chicken which was spicy she started coughing and since then has been having worsening right-sided rib pain. Reports it is painful when she laughs or speaks. She reports that when she coughed after eating the katelyn chicken she heard a pop. Having trouble taking deep breaths. Some shortness of breath. No chest pain. This has never happened to her before physical exam Concerns for osteopenia / osteoporosis possibly leading to rib fracture. unlikely flail chest, pneumothorax, ARDS although chart says patient is allergic to naproxen she says she does not recall this and she knows that she does not have an anaphylactic reaction to this medication, she has taken Aleve, ibuprofen and Tylenol without any issues. Will watch her for 20 minutes. I did give patient an incentive spirometer and educated her on proper use. Patient does report she has anaphylaxis to multiple medications and she ran out of epi pens would like some for home. Will refill them at this time. She understands proper use of an EpiPen and understands of an EpiPen is you she should seek medical attention right after use. plan at this time imaging., toradol here , observation and incentive spirometer teaching. Will discharge with Toradol, Lidoderm patches. I did give her an incentive spirometer here. Educated patient on diagnosis and treatment plan, answered all question, patient verbalizes understanding. At this time patient will be discharged home, advised to return with new or worsening symptoms. Educated on worrisome signs and symptoms and when to return. At this time I feel comfortable discharge home. 1347 Patient tolerated Toradol well I did watch her for about 30 minutes. [facility] Medical History Moderate persistent asthma, uncomplicated Renal calculus, right Osteoporosis Compression fracture of T12 vertebra Anxiety Asthma Surgical History H/O right knee surgery Hx of tonsillectomy H/O eye surgery Family History Father Family history unknown Mother Family history unknown Household Members Other:: fiance Housing: Apartment Alcohol intake: current Alcohol intake frequency: holidays/special occasions only Patient Tobacco Use Status: Never used Tobacco e-Cigarette/Vaping Use: Never Used Second Hand Smoke Exposure: No service: No Current occupational status: employed 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 Sexual orientation: Straight/Heterosexual Gender identity: Female Cognitive needs: No Hearing needs: No Vision needs: Yes Female Reproductive History Menstrual Age of Menarche: 12 Review of Systems Const Details: Constitutional : No Weight loss, No Fever, No Chills, No Fatigue, No Malaise ENT/Mouth : No sore throat, No Rhinorrhea Eyes: No Eye Pain, No Swelling, No Redness Cardiovascular : No Chest Pain, No SOB, No Dyspnea on Exertion, No Orthopnea, No Edema, No Palpitations Respiratory : No Cough, No Sputum, No Wheezing Gastrointestinal : No Nausea, No Vomiting, No Diarrhea, No Constipation, No abdominal Pain, No Hematochezia, No Melena Genitourinary : No Dysuria, No Urinary Frequency, No Hematuria, Musculoskeletal : No joint pain, No Myalgias, No Joint Swelling, + rib pain Skin : No Skin Lesions, No rash Neuro : No Weakness, No Numbness, No Dizziness, No Headache Psych : No Anxiety/Panic, No Depression All other systems reviewed and are negative All systems reviewed & are unremarkable except as noted in HPI and below Physical Exam Vital Signs: Last Vital Signs Temp 97.9 F 06/28/23 13:05 Pulse 74 06/28/23 13:05 BP 110/64 06/28/23 13:05 Pulse Ox 99 06/28/23 13:05 Oxygen Delivery Method Room Air 06/28/23 13:05 vss Appearance: Alert.? Oriented X3.? No acute distress.? Head: Normocephalic, atraumatic, no step-offs or deformities Eyes: Pupils equal, round and reactive to light.? Neck: Normal inspection.? Neck supple.? CVS: Normal heart rate and rhythm.? Pulses normal.? Respiratory: No respiratory distress.? Breath sounds normal.? Abdomen: Soft and nontender.? Skin: Skin warm and dry.? Normal skin color.? Normal skin turgor.? Extremities: No lower extremity edema.? No calf ttp. 5/5 strength to bilateral upper and lower extremities + TTP to right sided ribs throughout. Neuro: Oriented X 3.? No motor deficit.? No sensory deficit. CN 2-12 intact Office Meds ketorolac 30 mg/mL injection solution Performing Provider: BRYAN Brito Performing Location: [facility] Administered by: Geno Mendoza RN on 06/28/23 13:22 Dose Route Admin Location Dispensed Lot Number Expiration Date ND Ladle Operator 30 mg IM left gluteal 1.0 mL [id number] 10/05/24 0702-8624-97 Assessment & Plan Assessment & Plan (1) Rib pain on right side: Code(s): R07.81 - Pleurodynia Plan Take your medications as prescribed. If you were prescribed antibiotics today, it is important that you take your medication to their entirety, do not skip any doses, do not finish them early. Follow-up with your primary care provider this week. Return to the emergency department with new or worsening symptoms. Such as fevers, chills, chest pain, shortness of breath, nausea, vomiting, dizziness, headache, vision changes, lethargy In case of emergency call 911 Toradol has been sent to your pharmacy, you tolerated this well in the department. Please take this as prescribed do not take this with ibuprofen, or other NSAIDs, do not mix this with alcohol. Side effects of this medication including increased risk for bleeding and possible kidney injury. Orders: Orders XR ribs RT min 3V w CXR1V Today R07.81 - Pleurodynia AMB Ketorolac Injection Today R07.81 - Pleurodynia Medications: New ketorolac 10 mg PO Q8H PRN 15 tabs 0RF pain epinephrine (EpiPen 2-John) 0.3 mg (0.3 mL) IM Q4H PRN 2 ea 0RF anaphylaxis lidocaine 4% (AsperFlex (lidocaine)) 1 patch topical DAILY PRN 15 ea 0RF pain Coding Level of Care Code Est Pt Level 3 (34983) Diagnoses Rib pain on right side R07.81
[2023-06-28 13:05] VITALS: BP 110/64; PULSE 74; TEMP 36.6; O2SAT 99
== END 2023-06-28 14:24 | disposition home or self-care (01) ==
PROVIDERS: PCP Internal Medicine; Visit Provider Physician Assistant
DX: R07.81 Pleurodynia (principal)
CPT/HCPCS: 96372; 99213; J1885

== ENCOUNTER 2023-06-28 12:44 | Outpatient (REF) | payer BC, SELFPAY ==
--- NOTE | ~2023-06-28 | XR_ITS ---
EXAMINATION: XR RIBS, RIGHT CLINICAL INFORMATION: Pleurodynia. COMPARISON: None available. TECHNIQUE: 3 views of the right ribs were obtained. Chest PA 1 view. FINDINGS: Lungs are clear. No consolidation, pneumothorax, or pleural effusion. The cardiomediastinal silhouette and pulmonary vasculature are normal. Osseous structures are unremarkable. Ribs are intact. No fractures are identified. XR/XR ribs RT min 3V w CXR1V IMPRESSION: The lungs are well-expanded and clear of acute process. Heart size and pulmonary vascularity is normal. No gross bony abnormality seen. Multiple views of right ribs reveal no visible acute fracture or bony abnormality.
== END 2023-06-28 12:45 | disposition home or self-care (01) ==
LOC: HO.HMGCX 12:44
PROVIDERS: PCP Internal Medicine; Visit Provider Physician Assistant
DX: R07.81 Pleurodynia (principal)
CPT/HCPCS: 71101

== ENCOUNTER 2023-07-04 16:31 | Outpatient (AMB) | payer BC, SELFPAY ==
[2023-07-04 16:33] VITALS: BP 120/78; PULSE 102; O2SAT 98; BMI 25.7
--- NOTE | 2023-07-04 16:33 | MHC.PC.OV ---
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 Accompanied by: Self / Same As Patient Allergies amoxicillin [AMOXICILLIN] Allergy (Unknown, Verified 07/05/23 02:47) ANAPHYLAXIS codeine [CODEINE] Allergy (Unknown, Verified 07/05/23 02:47) UNKNOWN guaifenesin [Mucinex] Allergy (Unknown, Verified 07/05/23 02:47) Unknown Iodinated Contrast Media [IV CONTRAST] Allergy (Unknown, Verified 07/05/23 02:47) ANAPHYLAXIS levalbuterol [From XOPENEX] Allergy (Unknown, Verified 07/05/23 02:47) DIFFICULTY BREATHING naproxen Allergy (Unknown, Verified 07/05/23 02:47) Unknown penicillin V Allergy (Unknown, Verified 07/05/23 02:47) anaphylaxis Penicillins [PENICILLINS] Allergy (Unknown, Verified 07/05/23 02:47) ANAPHYLAXIS lidocaine Adverse Reaction (Unknown, Verified 07/05/23 02:47) Irritated, itchy Codeine Phosphate Allergy (Unknown, Uncoded 07/05/23 02:47) Unknown ct dye Allergy (Unknown, Uncoded 07/05/23 02:47) anaphylaxis IV Contrast Allergy (Unknown, Uncoded 07/05/23 02:47) Unknown seasonal/environmental Allergy (Unknown, Uncoded 07/05/23 02:47) Unknown tomatoes,OJ,vinegar Allergy (Unknown, Uncoded 07/05/23 02:47) Unknown Medication List - Last Reconciled 07/05/23 by Tre Maldonado MD albuterol sulfate 90 mcg/actuation (ProAir HFA) 2 puffs inhalation Q4-6H budesonide-formoterol 160-4.5 mcg/actuation (Symbicort) 2 puffs inhalation BID calcium citrate 500 mg (2 x 250 mg calcium) PO DAILY 30 days cephalexin 500 mg PO Q6H 10 days cholecalciferol (vitamin D3) 25 mcg PO DAILY 30 days epinephrine (EpiPen 2-John) 0.3 mg (0.3 mL) IM Q4H PRN erythromycin 0.5 inches ophthalmic (eye) TID ibuprofen 800 mg PO TID ketorolac 10 mg PO Q8H PRN lidocaine 4% (AsperFlex (lidocaine)) 1 patch topical DAILY PRN montelukast 10 mg PO DAILY 90 days polymyxin B sulf-trimethoprim 10,000 unit- 1 mg/mL (Polytrim) 1 drp ophthalmic (eye) QID 7 days sertraline 50 mg PO DAILY 30 days sulfamethoxazole-trimethoprim 800-160 mg (Bactrim DS) 1 tab PO Q12H 10 days Tobacco use date assessed: 07/04/23 Dental Screening Dental Screen Date: 07/04/23 Did you have a dental visit in the last 12 months?: Yes Did you have a dental problem in the last 6 months where you did not have access to dental care?: No Was dental information given to patient?: Patient has dentist HPI RT scapula pain radiating to RUQ HPI Details Patient comes in today complaining of increased pain over her right mid thoracic area just under her right shoulder blade for the past 10 days States that the pain would also often radiate around into her right upper abdominal area She is convinced that she has some broken ribs as she states that she can feel something cracking over her right mid to lower thoracic area when she moves or turns her body or takes a deep breath Recalls that her pain started around 10 days ago on 06/24/23 when she tried to hold in a sneeze while she was at dinner with some friends but ended up sneezing anyway Recalls feeling a sharp pain over her right thoracic area immediately afterwards and states that she has been in pain since Patient had some x-rays of the right ribs done recently that showed no fractures but she states that she has had rib fractures in the past that did not show up immediately on x-rays and would like to see if she can get a CT scan done for further evaluation States that the only medication so far that has helped with her pain was Toradol that was prescribed for her when she went to the ER last week and she would like to get this refilled for now No other acute complaints or symptoms are noted [facility] Medical History Moderate persistent asthma, uncomplicated Renal calculus, right Osteoporosis Compression fracture of T12 vertebra Anxiety Asthma Surgical History H/O right knee surgery Hx of tonsillectomy H/O eye surgery Family History Father Family history unknown Mother Family history unknown Social History Household Members Other:: fiance Housing: Apartment Alcohol intake: current Alcohol intake frequency: holidays/special occasions only Patient Tobacco Use Status: Never used Tobacco e-Cigarette/Vaping Use: Never Used Second Hand Smoke Exposure: No service: No Current occupational status: employed 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 1. Little interest or pleasure in doing things: nearly every day (due to back injury. ) 2. Feeling down, depressed, or hopeless: nearly every day 3. Trouble falling or staying asleep, or sleeping too much: nearly every day 4. Feeling tired or having little energy: nearly every day 5. Poor appetite or overeating: nearly every day 6. Feeling bad about yourself - or that you are a failure or have let yourself or your family down: nearly every day 7. Trouble concentrating on things, such as reading the newspaper or watching television: not at all 8. Moving or speaking so slowly that other people could have noticed. Or the opposite - being so fidgety or restless that you have been moving around a lot more than usual: not at all 9. Thoughts that you would be better off or of hurting yourself in some way: not at all Total score: 18 Depression Screening Interpretation: Positive Depression Screening Follow-up: Existing condition and In treatment Depression Screening Done: Yes 89791 - PHQ-9 Billing: Yes Source: Developed by Drs. Aden Sargent, Raissa Sam, Oli Garcia and colleagues, with an educational guillermo from [employer]. Thrive Questionnaire Date Thrive assessed: 07/04/23 I am a: Patient What is your living situation today?: I have a steady place to live Within the past 12 months, did the food you bought not last and you didn't have the money to get more?: Never true Within the past 12 months, did you worry whether your food would run out before you got money to buy more?: Never true Do you have trouble paying for medicines?: No Do you have trouble getting transportation to medical appointments?: No Do you have trouble paying your heating and electricity bill?: No Do you have trouble taking care of your child, family member or friend?: No Do you have trouble with day-to-day activities such as bathing, preparing meals, shopping, managing finances, etc.?: No Are you currently unemployed and looking for a job?: No Are you interested in more education?: No Please select the resources that you would like help with: None Currently or been in a relationship where the following occur: no concerns reported AUDIT C Alcohol Use Questionnaire (AUDIT-C) 1. How often do you have a drink containing alcohol?: Never 3. How often do you have six or more drinks on one occasion?: Never Total Score: 0 Score Reviewed/Action Taken: Yes PALOMA-7 AMB Questionnaire PALOMA-7 Date PALOMA - 7 assessed: 07/04/23 Feeling nervous, anxious, or on edge: 0 = Not at all Not being able to stop or control worryin = Not at all Worrying too much about different things: 0 = Not at all Trouble relaxin = Not at all Being so restless that it is hard to sit still: 0 = Not at all Becoming easily annoyed or irritable: 0 = Not at all Feeling afraid as if something awful might happen: 0 = Not at all Total PALOMA-7 score (0-4 normal; 5-9 mild; 10-14 moderate; 15-21 severe): 0 Source: Developed by Drs. Aden Sargent, Raissa Sam, Oli Garcia and colleagues, with an educational guillermo from [employer]. Review of Systems Const Denies chills, Reports fatigue, Denies fever(s) and Denies headache(s) ENT Denies dysphagia, Denies dizziness, Denies otalgia, Denies headache(s), Denies odynophagia and Denies sore throat Card Denies chest pain, Denies palpitations and Denies dyspnea Resp Details: increased pain over the right mid thoracic area, just under the right scapula - pain increases with deep breathing, movement and increased activity Denies cough and Denies dyspnea GI Denies abdominal pain, Denies constipation, Denies dysphagia, Denies heartburn, Denies diarrhea, Denies nausea, Denies odynophagia and Denies vomiting Denies difficulty voiding, Denies nocturia and Denies dysuria Musc Reports back pain (over the right lower back, with recurrent back spasms) Neuro Denies dizziness and Denies headache(s) Endo Reports fatigue and Denies palpitations Physical exam (Primary Care) Vital Signs: Last Vital Signs Pulse 102 H 07/04/23 16:33 BP 120/78 07/04/23 16:33 Pulse Ox 98 07/04/23 16:33 Oxygen Delivery Method Room Air 07/04/23 16:33 BMI result Body Mass Index 25.7 Tobacco/Smoking Status: Tobacco use Status Tobacco use date assessed 07/04/23 07/04/23 16:35 Patient Tobacco Use Status Never used Tobacco 07/04/23 16:35 e-Cigarette/Vaping Use Never Used 07/04/23 16:35 PHQ-9: PHQ-9 Score PHQ-9: Total score 18 07/04/23 17:18 Depression Screening Interpretation: Positive Depression Screening Follow-up: Existing condition and In treatment Thrive Assessment: Date of Thrive Assessment Date Thrive assessed 07/04/23 07/04/23 16:35 Currently or been in a relationship where the following occur: no concerns reported Const General: no acute distress and alert Neck Neck: Yes no lymphadenopathy and Yes supple Chest Other: (+) tenderness on deep palpation over the lower ribs on the right side along the lateral and posterior axillary line Resp Auscultation: clear to auscultation bilaterally, no rales and no wheezes Cardio Rate: regular rate Rhythm: regular rhythm Heart sounds: no murmurs GI Palpation (GI): Soft to palpation and nontender Auscultation: normal bowel sounds Back/Spine/Pelvis Other: (+) tenderness on palpation over the lower ribs at the right mid thoracic area just below the right scapula Extrem General: Yes no clubbing, cyanosis or edema Assessment and Plan Assessment & Plan (1) Rib pain on right side: Comment: persistent right posterior rib pain - pain increased with breathing and movement Code(s): R07.81 - Pleurodynia Plan: X-rays of the right ribs done a few days ago came out negative for rib fractures but patient remains concerned as she's had rib fractures in the past that did not show up initially on x-rays Per request, will send her for CT of the chest and ribs for further evaluation Continue Ketorolac 10 ng tablets Q 8 hours with food PRN for pain - Rx refilled Have instructed patient to avoid any heavy exertion, straining or increased physical activity in the meantime until we can completely rule out rib fractures in her case Plan Follow up in 3 months and/or PRN Orders: Orders CT chest wo IV con 07/04/23 R07.81 - Pleurodynia Medications: Refilled ketorolac 10 mg PO Q8H PRN 15 tabs 0RF pain Coding Level of Care Code Est Pt Level 3 (46613) Diagnoses Rib pain on right side R07.81
== END 2023-07-04 17:19 | disposition home or self-care (01) ==
PROVIDERS: PCP Internal Medicine; Visit Provider Internal Medicine
DX: R07.81 Pleurodynia (principal)
CPT/HCPCS: 99213

== ENCOUNTER 2023-10-10 16:39 | Outpatient (AMB) | payer BC, SELFPAY ==
[2023-10-10 16:41] VITALS: BP 112/68; PULSE 65; O2SAT 98; BMI 26.4
--- NOTE | 2023-10-10 16:41 | MHC.PC.OV ---
Vital Signs 10/10/23 16:41 Height 5 ft 1 in Weight 139 lb 8 oz BMI 26.4 BP 112/68 Blood Pressure Location Lt brachial Position Sitting Pulse 65 Pulse Source Pulse Oximeter Pulse Oximetry (%) 98 Oxygen Delivery Method Room Air Intake Visit Reasons: 4 month f/u Malt Specifications Control Assistant Required: No Accompanied by: Self / Same As Patient Allergies amoxicillin [AMOXICILLIN] Allergy (Unknown, Verified 10/10/23 17:05) ANAPHYLAXIS codeine [CODEINE] Allergy (Unknown, Verified 10/10/23 17:05) UNKNOWN guaifenesin [Mucinex] Allergy (Unknown, Verified 10/10/23 17:05) Unknown Iodinated Contrast Media [IV CONTRAST] Allergy (Unknown, Verified 10/10/23 17:05) ANAPHYLAXIS levalbuterol [From XOPENEX] Allergy (Unknown, Verified 10/10/23 17:05) DIFFICULTY BREATHING naproxen Allergy (Unknown, Verified 10/10/23 17:05) Unknown penicillin V Allergy (Unknown, Verified 10/10/23 17:05) anaphylaxis Penicillins [PENICILLINS] Allergy (Unknown, Verified 10/10/23 17:05) ANAPHYLAXIS lidocaine Adverse Reaction (Unknown, Verified 10/10/23 17:05) Irritated, itchy Codeine Phosphate Allergy (Unknown, Uncoded 10/10/23 17:05) Unknown ct dye Allergy (Unknown, Uncoded 10/10/23 17:05) anaphylaxis IV Contrast Allergy (Unknown, Uncoded 10/10/23 17:05) Unknown seasonal/environmental Allergy (Unknown, Uncoded 10/10/23 17:05) Unknown tomatoes,OJ,vinegar Allergy (Unknown, Uncoded 10/10/23 17:05) Unknown Medication List - Last Reconciled 10/10/23 by Tre Maldonado MD albuterol sulfate 90 mcg/actuation (ProAir HFA) 2 puffs inhalation Q4-6H budesonide-formoterol 160-4.5 mcg/actuation (Symbicort) 2 puffs inhalation BID calcium citrate 500 mg (2 x 250 mg calcium) PO DAILY 30 days cholecalciferol (vitamin D3) 25 mcg PO DAILY 30 days epinephrine (EpiPen 2-John) 0.3 mg (0.3 mL) IM Q4H PRN erythromycin 0.5 inches ophthalmic (eye) TID ibuprofen 800 mg PO TID ketorolac 10 mg PO Q8H PRN lidocaine 4% (AsperFlex (lidocaine)) 1 patch topical DAILY PRN montelukast 10 mg PO DAILY 90 days sertraline 50 mg PO DAILY 30 days Tobacco use date assessed: 10/10/23 Dental Screening Dental Screen Date: 10/10/23 Did you have a dental visit in the last 12 months?: Yes Did you have a dental problem in the last 6 months where you did not have access to dental care?: No Was dental information given to patient?: Patient has dentist HPI 4 month f/u HPI Details Patient comes in today for her follow up visit States that she [facility] of her left corneal ulcer She is not sure how she got the ulcer as she denies any recent eye injury or trauma States that she retired a few months ago and her anxiety has eased up a lot since She is still on Sertraline and will need her Rx refilled States that her asthma has been well controlled lately and she has been using her inhalers and taking her medications prescribed She denies any headaches or dizziness Denies any chest pains, no shortness of breath No nausea /vomiting, no abdominal pain No change in bowel habits noted Also needs her Montelukast Rx refilled [facility] Medical History (Updated 10/11/23 @ 04:49 by Tre Maldonado MD) Overweight (BMI 25.0-29.9) Moderate persistent asthma, uncomplicated Renal calculus, right Osteoporosis Compression fracture of T12 vertebra Anxiety Asthma Surgical History H/O right knee surgery Hx of tonsillectomy H/O eye surgery Family History Father Family history unknown Mother Family history unknown Social History Household Members Other:: fiance Housing: Apartment Alcohol intake: current Alcohol intake frequency: holidays/special occasions only Patient Tobacco Use Status: Never used Tobacco e-Cigarette/Vaping Use: Never Used Second Hand Smoke Exposure: No service: No Current occupational status: employed 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 1. Little interest or pleasure in doing things: nearly every day (due to back injury. ) 2. Feeling down, depressed, or hopeless: nearly every day 3. Trouble falling or staying asleep, or sleeping too much: nearly every day 4. Feeling tired or having little energy: nearly every day 5. Poor appetite or overeating: nearly every day 6. Feeling bad about yourself - or that you are a failure or have let yourself or your family down: nearly every day 7. Trouble concentrating on things, such as reading the newspaper or watching television: not at all 8. Moving or speaking so slowly that other people could have noticed. Or the opposite - being so fidgety or restless that you have been moving around a lot more than usual: not at all 9. Thoughts that you would be better off or of hurting yourself in some way: not at all Total score: 18 Depression Screening Interpretation: Positive Depression Screening Follow-up: Existing condition and In treatment Depression Screening Done: Yes 68034 - PHQ-9 Billing: Yes Source: Developed by Drs. Aden Sargent, Raissa Sam, Oli Garcia and colleagues, with an educational guillermo from [employer]. Thrive Questionnaire Date Thrive assessed: 10/10/23 I am a: Patient What is your living situation today?: I have a steady place to live Within the past 12 months, did the food you bought not last and you didn't have the money to get more?: Never true Within the past 12 months, did you worry whether your food would run out before you got money to buy more?: Never true Do you have trouble paying for medicines?: No Do you have trouble getting transportation to medical appointments?: No Do you have trouble paying your heating and electricity bill?: No Do you have trouble taking care of your child, family member or friend?: No Do you have trouble with day-to-day activities such as bathing, preparing meals, shopping, managing finances, etc.?: No Are you currently unemployed and looking for a job?: No Are you interested in more education?: No Please select the resources that you would like help with: None Currently or been in a relationship where the following occur: no concerns reported THRIVE Score: 0 AUDIT C Alcohol Use Questionnaire (AUDIT-C) 1. How often do you have a drink containing alcohol?: Never 3. How often do you have six or more drinks on one occasion?: Never Total Score: 0 Score Reviewed/Action Taken: Yes PALOMA-7 AMB Questionnaire PALOMA-7 Date PALOMA - 7 assessed: 10/10/23 Feeling nervous, anxious, or on edge: 0 = Not at all Not being able to stop or control worryin = Not at all Worrying too much about different things: 0 = Not at all Trouble relaxin = Not at all Being so restless that it is hard to sit still: 0 = Not at all Becoming easily annoyed or irritable: 0 = Not at all Feeling afraid as if something awful might happen: 0 = Not at all Total PALOMA-7 score (0-4 normal; 5-9 mild; 10-14 moderate; 15-21 severe): 0 Source: Developed by Drs. Aden Sargent, Raissa Sam, Oli Garcia and colleagues, with an educational guillermo from [employer]. Review of Systems Const Denies chills, Denies fatigue, Denies fever(s) and Denies headache(s) Eyes Reports blurry vision (in the left eye - see HPI) ENT Denies dysphagia, Denies dizziness, Denies otalgia, Denies headache(s), Denies neck pain, Denies odynophagia and Denies sore throat Card Denies chest pain, Denies palpitations and Denies dyspnea Resp Denies chest congestion, Denies cough, Denies dyspnea and Denies wheezing GI Denies abdominal pain, Denies constipation, Denies dysphagia, Denies heartburn, Denies diarrhea, Denies nausea, Denies odynophagia and Denies vomiting Denies difficulty voiding, Denies nocturia and Denies dysuria Musc Reports back pain (on and off but are mostly manageable lately) and Denies neck pain Skin/Breast Denies rash Neuro Denies dizziness and Denies headache(s) Endo Denies fatigue and Denies palpitations Aller/Immun Denies wheezing Physical exam (Primary Care) Vital Signs: Last Vital Signs Pulse 65 10/10/23 16:41 BP 112/68 10/10/23 16:41 Pulse Ox 98 10/10/23 16:41 Oxygen Delivery Method Room Air 10/10/23 16:41 BMI result Body Mass Index 26.4 Tobacco/Smoking Status: Tobacco use Status Tobacco use date assessed 10/10/23 10/10/23 16:42 Patient Tobacco Use Status Never used Tobacco 10/10/23 16:42 e-Cigarette/Vaping Use Never Used 10/10/23 16:42 PHQ-9: PHQ-9 Score PHQ-9: Total score 18 10/10/23 17:12 Depression Screening Interpretation: Positive Depression Screening Follow-up: Existing condition and In treatment Thrive Assessment: Date of Thrive Assessment Date Thrive assessed 10/10/23 10/10/23 16:42 Currently or been in a relationship where the following occur: no concerns reported Const General: no acute distress and alert HENMT Throat: Yes posterior oropharynx normal and Yes tonsils normal Neck Neck: Yes no lymphadenopathy and Yes supple Thyroid: Thyroid normal Resp Auscultation: clear to auscultation bilaterally, no rales and no wheezes Cardio Rate: regular rate Rhythm: regular rhythm Heart sounds: no murmurs GI Palpation (GI): Soft to palpation and nontender Auscultation: normal bowel sounds General: Yes no CVA tenderness Back/Spine/Pelvis Back: no CVA tenderness Thoracic/Lumbar Spine: lumbar spinal tenderness (mild, mostly over her thoracolumbar area (has Hx of T12 compression Fx)) Skin Rashes: no rashes Extrem General: Yes no clubbing, cyanosis or edema Assessment and Plan Assessment & Plan (1) Asthma: Comment: Follow with pulmonology Code(s): J45.909 - Unspecified asthma, uncomplicated Qualifiers: Asthma severity: moderate Asthma persistence: persistent Asthma complication type: uncomplicated Qualified Code(s): J45.40 - Moderate persistent asthma, uncomplicated Plan: Stable lately Continue Montelukast 10 mg QD (Rx refilled), Symbicort 160-4.5 mcg 2 inhalations BID and Albuterol HFA 2 inhalations Q 6 hours PRN Follow up with pulmonary as scheduled (2) Compression fracture of T12 vertebra: Code(s): S22.080A - Wedge compression fracture of T11-T12 vertebra, initial encounter for closed fracture Qualifiers: Encounter type: sequela Qualified Code(s): S22.080S - Wedge compression fracture of T11-T12 vertebra, sequela Plan: Chest CT done in 01/2021 incidentally revealed (+) T12 compression fracture - is most likely due to her osteoporosis as patient denies any injury or falls that could have contributed to this States that her back pains have been mostly manageable lately Continue Lidocaine patches QD PRN Reinforced fall precautions (3) Osteoporosis: Code(s): M81.0 - Age-related osteoporosis without current pathological fracture Qualifiers: Osteoporosis type: other Presence of current pathological fracture: with current pathological fracture Encounter type: sequela Qualified Code(s): M80.80XS - Other osteoporosis with current pathological fracture, unspecified site, sequela Plan: BMD done back on 04/18/2019 revealed (+) significant osteoporosis with a lowest T-score value of -4.9 Patient was referred to endocrinology back in 2018 for further evaluation and management of her osteoporosis - states that she was tried on some unrecalled medication which she could not tolerate Was most recently seen by Dr. Davis back in 2021 and was started on Evenity - plan was to take Evenity x 1 year then switch her back to Alendronate but patient has not followed up with Dr. Davis since and is currently no longer on any Rx for her osteoporosis Have advised her to contact Dr. Davis's office to schedule a follow up appointment LINDY to help address her osteoporosis Continue daily oral Calcium and Vitamin D supplements and reinforced fall precautions (4) Corneal ulcer, left: Code(s): H16.002 - Unspecified corneal ulcer, left eye Plan: Continue Erythromycin ophthalmic ointment TID [facility] with [facility] for continuing management of her corneal ulcer (5) Renal calculus, right: Code(s): N20.0 - Calculus of kidney Plan: Chest CT done back in 01/2021 also revealed incidentally the presence of some small right renal stones Follow-up with Urology as scheduled (6) Anxiety: Code(s): F41.9 - Anxiety disorder, unspecified Plan: Continue Sertraline 50 mg QD - Rx refilled (7) Overweight (BMI 25.0-29.9): Code(s): E66.3 - Overweight Plan: Reinforced diet/exercise as tolerated/lose weight Plan Follow up in 4 months Medications: Refilled sertraline 50 mg PO DAILY 30 days 30 tabs 2RF F41.9 - Anxiety disorder, unspecified montelukast 10 mg PO DAILY 90 days 90 tabs 3RF L50.9 - Urticaria, unspecified Coding Level of Care Code Est Pt Level 4 (16980) Diagnoses Moderate persistent asthma without complication J45.40 Asthma severity: moderate Asthma persistence: persistent Asthma complication type: uncomplicated Compression fracture of T12 vertebra, sequela S22.080S Encounter type: sequela Other osteoporosis with current pathological fracture, sequela M80.80XS Osteoporosis type: other Presence of current pathological fracture: with current pathological fracture Encounter type: sequela Corneal ulcer, left H16.002 Renal calculus, right N20.0 Anxiety F41.9 Overweight (BMI 25.0-29.9) E66.3
== END 2023-10-10 17:21 | disposition home or self-care (01) ==
PROVIDERS: PCP Internal Medicine; Visit Provider Internal Medicine
DX: J45.40 Moderate persistent asthma, uncomplicated (principal); S22.080S Wedge compression fracture of T11-T12 vertebra, sequela; M80.80XS Other osteoporosis with current pathological fracture, unspecified site, sequela; H16.002 Unspecified corneal ulcer, left eye; N20.0 Calculus of kidney; F41.9 Anxiety disorder, unspecified; E66.3 Overweight
CPT/HCPCS: 99214

== ENCOUNTER 2023-12-21 12:23 | Outpatient (REF) | payer BC, SELFPAY | END 2023-12-21 12:24 | disposition home or self-care (01) | LOC: HO.MAMMO 12:23 | PROVIDERS: PCP Internal Medicine; Visit Provider Internal Medicine | DX: Z12.31 Encounter for screening mammogram for malignant neoplasm of breast (principal) | CPT/HCPCS: 77063; 77067 ==

== ENCOUNTER → 2023-12-21 13:15 | Outpatient (BNV) | payer BC, SELFPAY | PROVIDERS: PCP Internal Medicine; Visit Provider Radiology Diagnostic Radiology | DX: Z12.31 Encounter for screening mammogram for malignant neoplasm of breast (principal) | CPT/HCPCS: 77063; 77067 ==

== ENCOUNTER 2024-01-03 12:12 | Outpatient (AMB) | payer BC, SELFPAY ==
--- NOTE | 2024-01-03 13:40 | AM.OFFWIN_ITS ---
Intake Vital Signs 3 01/03/24 13:41 Height 5 ft 1 in Weight 138 lb BMI 26.1 BP 120/70 Blood Pressure Location Lt brachial Position Sitting Pulse 73 Pulse Source Pulse Oximeter Pulse Oximetry (%) 98 Intake Visit Reasons: EP rt side face swollen/painful [id number] Intake Note: pt is here today for rt side face swollen and painful started 4 days ago Patient Tobacco Use Status: Never used Tobacco Allergies amoxicillin [AMOXICILLIN] Allergy (Unknown, Verified 01/03/24 14:15) ANAPHYLAXIS codeine [CODEINE] Allergy (Unknown, Verified 01/03/24 14:15) UNKNOWN guaifenesin [Mucinex] Allergy (Unknown, Verified 01/03/24 14:15) Unknown Iodinated Contrast Media [IV CONTRAST] Allergy (Unknown, Verified 01/03/24 14:15) ANAPHYLAXIS levalbuterol [From XOPENEX] Allergy (Unknown, Verified 01/03/24 14:15) DIFFICULTY BREATHING naproxen Allergy (Unknown, Verified 01/03/24 14:15) Unknown penicillin V Allergy (Unknown, Verified 01/03/24 14:15) anaphylaxis Penicillins [PENICILLINS] Allergy (Unknown, Verified 01/03/24 14:15) ANAPHYLAXIS lidocaine Adverse Reaction (Unknown, Verified 01/03/24 14:15) Irritated, itchy Codeine Phosphate Allergy (Unknown, Uncoded 10/10/23 17:05) Unknown ct dye Allergy (Unknown, Uncoded 10/10/23 17:05) anaphylaxis IV Contrast Allergy (Unknown, Uncoded 10/10/23 17:05) Unknown seasonal/environmental Allergy (Unknown, Uncoded 10/10/23 17:05) Unknown tomatoes,OJ,vinegar Allergy (Unknown, Uncoded 10/10/23 17:05) Unknown Do you need a note to return to daycare/school/sports/work: No HPI EP rt side face swollen/painful [id number] 2 HPI0 Details This is a 63-year-old female patient who presents today with right- sided facial swelling/infection for the last 4 days. This is radiating from one-week site on her chin, up her right cheek, extending towards her ear. She states that she has had this type of infection previously, and has been diagnosed with MRSA. At times, she needs to have I&D. She states that this started as a small pimple on her chin about 4 days ago, and has progressed significantly since then. She reports severe pain at all times. She has pain with talking and eating less. She would like to see an infectious disease specialist. She has been using Tylenol/Motrin and hot compresses with out any relief. She denies any fever, however has been feeling hot and cold sensation. [facility] Medical History Overweight (BMI 25.0-29.9) Moderate persistent asthma, uncomplicated Renal calculus, right Osteoporosis Compression fracture of T12 vertebra Anxiety Asthma Surgical History H/O right knee surgery Hx of tonsillectomy H/O eye surgery Family History Father Family history unknown Mother Family history unknown Social History Household Members Other:: fiance Housing: Apartment Alcohol intake: current Alcohol intake frequency: holidays/special occasions only Patient Tobacco Use Status: Never used Tobacco e-Cigarette/Vaping Use: Never Used Second Hand Smoke Exposure: No service: No Current occupational status: employed 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 Sexual orientation: Straight/Heterosexual Gender identity: Female Cognitive needs: No Hearing needs: No Vision needs: Yes Female Reproductive History Menstrual Age of Menarche: 12 Review of Systems Const All systems reviewed & are unremarkable except as noted in HPI and below Physical Exam Vital Signs: Last Vital Signs Pulse 73 01/03/24 13:41 BP 120/70 01/03/24 13:41 Pulse Ox 98 01/03/24 13:41 BMI result Body Mass Index 26.1 Const General: cooperative and in distress (due to pain) moderate Nutritional Appearance: average body habitus Limitations: no limitations HEENT Other: small scabbed lesion right/center of chin with erythema, warmth, swelling, tenderness extending along lower mandible. No drainable abscess noted at this time. Head images: 2 1. pain, erythema in circled area, scabbed lesion at right/center of chin Ears: hearing grossly normal bilaterally General nose exam: Normal external nose present Mouth: Normal oral and palatal mucosa present Neck Neck: Yes no lymphadenopathy Resp Effort & Inspection: normal respiratory effort Auscultation: clear to auscultation bilaterally Cardio Rate: regular rate Rhythm: regular rhythm Extrem General: Yes capillary refill normal and Yes no clubbing, cyanosis or edema Psych Appearance: grossly normal Mental Status: mental status grossly normal Speech and movement: Normal speech and movement present Assessment & Plan Assessment & Plan (1) Infection, face: Code(s): L08.9 - Local infection of the skin and subcutaneous tissue, unspecified Plan: Doxycycline and prednisone prescribed for facial infection, highly suspicious for MRSA as patient has had MRSA infection in same location previously. At this time, there is no drainable abscess, however she is significantly tender and swollen in the affected area. I am going to also prescribe her a short course of pain medication to take for severe pain, when more conservative methods such as ice/heat, Tylenol/Motrin do not alleviate pain. We reviewed indications, risks, use, possible side effects of all prescribed medications. If she does not improve with treatment, or if she develops any fevers, worsening pain or swelling, she should go to the emergency department for evaluation. She requests infectious disease referral for these recurring MRSA-related infections. I have placed referral to [facility] [place] Infectious Disease. All questions were answered and patient verbalizes understanding and agrees to plan. (2) MRSA (methicillin resistant Staphylococcus aureus) carrier: Code(s): Z22.322 - Carrier or suspected carrier of Methicillin resistant Staphylococcus aureus Plan: As above Orders: Referrals 2 Infectious Disease Referral B99.9 - Unspecified infectious disease Medications: New 2 prednisone Take 4 tabs for two days, then take 3 tabs for two days, then take 2 tabs for two days, then take 1 tab for 2 days. 10 mg PO DAILY 20 tabs 0RF L08.9 - Local infection of the skin and subcutaneous tissue, unspecified, Z22.322 - Carrier or suspected carrier of Methicillin resistant Staphylococcus aureus doxycycline hyclate 100 mg PO BID 10 days 20 caps 0RF L08.9 - Local infection of the skin and subcutaneous tissue, unspecified, Z22.322 - Carrier or suspected carrier of Methicillin resistant Staphylococcus aureus tramadol Take up to twice a day as needed for severe pain. 50 mg PO BID 3 days PRN 6 tabs 0RF pain L08.9 - Local infection of the skin and subcutaneous tissue, unspecified Coding Level of Care Code Est Pt Level 4 (43223) Diagnoses Infection, face L08.9 MRSA (methicillin resistant Staphylococcus aureus) carrier Z22.322
[2024-01-03 13:41] VITALS: BP 120/70; PULSE 73; O2SAT 98; BMI 26.1
== END 2024-01-03 15:08 | disposition home or self-care (01) ==
PROVIDERS: PCP Internal Medicine; Visit Provider Nurse Practitioner Family
DX: L08.9 Local infection of the skin and subcutaneous tissue, unspecified (principal); Z22.322 Carrier or suspected carrier of Methicillin resistant Staphylococcus aureus
CPT/HCPCS: 99214

== ENCOUNTER 2024-01-15 13:56 | Outpatient (AMB) | payer BC, SELFPAY ==
--- NOTE | 2024-01-15 13:57 | MHC.OFFVIS ---
Vital Signs 01/15/24 13:58 Height 5 ft 1 in Weight 142 lb BMI 26.8 Pulse 80 Pulse Source Pulse Oximeter Pulse Oximetry (%) 99 Intake Visit Reasons: reff monica wylie facial MRSA Allergies amoxicillin [AMOXICILLIN] Allergy (Unknown, Verified 01/15/24 14:06) ANAPHYLAXIS codeine [CODEINE] Allergy (Unknown, Verified 01/15/24 14:06) UNKNOWN guaifenesin [Mucinex] Allergy (Unknown, Verified 01/15/24 14:06) Unknown Iodinated Contrast Media [IV CONTRAST] Allergy (Unknown, Verified 01/15/24 14:06) ANAPHYLAXIS levalbuterol [From XOPENEX] Allergy (Unknown, Verified 01/15/24 14:06) DIFFICULTY BREATHING naproxen Allergy (Unknown, Verified 01/15/24 14:06) Unknown penicillin V Allergy (Unknown, Verified 01/15/24 14:06) anaphylaxis Penicillins [PENICILLINS] Allergy (Unknown, Verified 01/15/24 14:06) ANAPHYLAXIS lidocaine Adverse Reaction (Unknown, Verified 01/15/24 14:06) Irritated, itchy Codeine Phosphate Allergy (Unknown, Uncoded 10/10/23 17:05) Unknown ct dye Allergy (Unknown, Uncoded 10/10/23 17:05) anaphylaxis IV Contrast Allergy (Unknown, Uncoded 10/10/23 17:05) Unknown seasonal/environmental Allergy (Unknown, Uncoded 10/10/23 17:05) Unknown tomatoes,OJ,vinegar Allergy (Unknown, Uncoded 10/10/23 17:05) Unknown HPI HPI reff monica wylie facial MRSA: Details: She did work in longterm and thinks caught MRSA there. 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 She has recurrent (every 3-4 month) skin infections right facial and chin area. She has had them drained in past and most recently on 01/02 she saw [facility] where she was told to go by Dr Maldonado she says. She took 10 days Doxycycline and it resolved. She has had salivary stones and eczema,otherwise well. Patient asked for Infectious Disease referral. 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) Overweight (BMI 25.0-29.9) Moderate persistent asthma, uncomplicated Renal calculus, right Osteoporosis Compression fracture of T12 vertebra Anxiety Asthma Surgical History H/O right knee surgery Hx of tonsillectomy H/O eye surgery Family History Father Family history unknown Mother Family history unknown Social History Household Members Other:: fiance Housing: Apartment Alcohol intake: current Alcohol intake frequency: holidays/special occasions only Patient Tobacco Use Status: Never used Tobacco e-Cigarette/Vaping Use: Never Used Second Hand Smoke Exposure: No service: No Current occupational status: employed 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 Sexual orientation: Straight/Heterosexual Gender identity: Female Cognitive needs: No Hearing needs: No Vision needs: Yes Female Reproductive History Menstrual Age of Menarche: 12 Review of Systems Const All systems reviewed & are unremarkable except as noted in HPI and below Physical Exam Vital Signs: Last Vital Signs Pulse 80 01/15/24 13:58 Pulse Ox 99 01/15/24 13:58 BMI result Body Mass Index 26.8 Const General: cooperative Orientation/consciousness: patient oriented x3 HEENT Head: Yes normal to inspection Mouth: Normal oral and palatal mucosa present Eyes General: appearance normal, both eyes and all related structures Pupils: Equal, round and reactive pupils present Resp Effort & Inspection: normal respiratory effort Cardio Rate: regular rate Rhythm: regular rhythm GI Palpation (GI): Soft to palpation and nontender General: Yes no CVA tenderness Back/Spine/Pelvis Back: no CVA tenderness Skin General skin exam: no rashes or lesions noted Neuro General: patient oriented x3 Cranial nerves: Yes CN's II-XII intact bilaterally and Yes Equal, round and reactive pupils present Extrem Other: resolving right facial swelling General: Yes normal to inspection Psych Appearance: grossly normal Assessment & Plan Assessment & Plan (1) Abscess of chin: Code(s): L02.01 - Cutaneous abscess of face Category: Medical Plan: na (2) 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 I did prescribe nasal mupirocin as one time decolonization technique. She can continue to use chlorhexidine body wash two times a week prn need, She can get CT mandible next time evaluate for osteomyelitis if occurs in same place. Good skin care,no makeup foundation as bacteria can adhere There are no signs of immunodeficiency. I did not make future appt but can see if needed. Medications: New mupirocin 2% apply thin layer into each nostril bid for 14 days 1 appl topical BID 14 days 15 grams 0RF Coding Level of Care Code New Pt Level 3 (91279) Diagnoses Abscess of chin L02.01 Infection of skin due to methicillin resistant Staphylococcus aureus (MRSA) L08.9; B95.62
[2024-01-15 13:58] VITALS: PULSE 80; O2SAT 99; BMI 26.8
== END 2024-01-15 14:24 | disposition home or self-care (01) ==
PROVIDERS: PCP Internal Medicine; Visit Provider Internal Medicine
DX: L02.01 Cutaneous abscess of face (principal); L08.9 Local infection of the skin and subcutaneous tissue, unspecified; B95.62 Methicillin resistant Staphylococcus aureus infection as the cause of diseases classified elsewhere
CPT/HCPCS: 99203

== ENCOUNTER → 2024-01-15 13:56 | Outpatient (BNVA) | payer BC, SELFPAY | PROVIDERS: PCP Internal Medicine; Visit Provider Internal Medicine ==

== ENCOUNTER 2024-08-14 11:17 | Outpatient (AMB) | payer BC, SELFPAY ==
--- NOTE | 2024-08-14 11:19 | AM.OFFWIN_ITS ---
Intake Vital Signs 08/14/24 11:21 Weight 143 lb BP 122/80 Blood Pressure Location Rt brachial Position Sitting Pulse 66 Pulse Source Pulse Oximeter Temp 98.2 F Temp Source Oral Pulse Oximetry (%) 95 Oxygen Delivery Method Room Air Intake Visit Reasons: EP Cough, body aches, congestion Intake Note: Patient here for cough, body aches and congestion that has been present for about 8 days. Patient Tobacco Use Status: Never used Tobacco Allergies amoxicillin [AMOXICILLIN] Allergy (Unknown, Verified 08/14/24 11:21) ANAPHYLAXIS codeine [CODEINE] Allergy (Unknown, Verified 08/14/24 11:21) UNKNOWN guaifenesin [Mucinex] Allergy (Unknown, Verified 08/14/24 11:21) Unknown Iodinated Contrast Media [IV CONTRAST] Allergy (Unknown, Verified 08/14/24 11:21) ANAPHYLAXIS levalbuterol [From XOPENEX] Allergy (Unknown, Verified 08/14/24 11:21) DIFFICULTY BREATHING naproxen Allergy (Unknown, Verified 08/14/24 11:21) Unknown penicillin V Allergy (Unknown, Verified 08/14/24 11:21) anaphylaxis Penicillins [PENICILLINS] Allergy (Unknown, Verified 08/14/24 11:21) ANAPHYLAXIS lidocaine Adverse Reaction (Unknown, Verified 08/14/24 11:21) Irritated, itchy Codeine Phosphate Allergy (Unknown, Uncoded 08/14/24 11:21) Unknown ct dye Allergy (Unknown, Uncoded 08/14/24 11:21) anaphylaxis IV Contrast Allergy (Unknown, Uncoded 08/14/24 11:21) Unknown seasonal/environmental Allergy (Unknown, Uncoded 08/14/24 11:21) Unknown tomatoes,OJ,vinegar Allergy (Unknown, Uncoded 08/14/24 11:21) Unknown Do you need a note to return to daycare/school/sports/work: No HPI HPI Comments History of Present Illness Details Patient is a 64-year-old female with a histort of asthma complaining of a cough, body aches, fatigue and congestion for 8 days. Cough worse at night, dry with some clear phlegm. Denies fevers. Uses montelukast, and albuterol inhaler PRN, has it at home, hasn't needed to use it since she has been sick. Has been using Nyquil, tea and honey, tylenol and cough drops. Sick contact at home with similar symptoms. [facility] Medical History Infection of skin due to methicillin resistant Staphylococcus aureus (MRSA) Overweight (BMI 25.0-29.9) Moderate persistent asthma, uncomplicated Renal calculus, right Osteoporosis Compression fracture of T12 vertebra Anxiety Asthma Surgical History H/O right knee surgery Hx of tonsillectomy H/O eye surgery Family History Father Family history unknown Mother Family history unknown Social History Household Members Other:: fiance Housing: Apartment Alcohol intake: current Alcohol intake frequency: holidays/special occasions only Patient Tobacco Use Status: Never used Tobacco e-Cigarette/Vaping Use: Never Used Second Hand Smoke Exposure: No service: No Current occupational status: employed 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 Sexual orientation: Straight/Heterosexual Gender identity: Female Cognitive needs: No Hearing needs: No Vision needs: Yes Female Reproductive History Menstrual Age of Menarche: 12 Review of Systems Const All systems reviewed & are unremarkable except as noted in HPI and below Physical Exam Vital Signs: Last Vital Signs Temp 98.2 F 08/14/24 11:21 Pulse 66 08/14/24 11:21 BP 122/80 08/14/24 11:21 Pulse Ox 95 08/14/24 11:21 Oxygen Delivery Method Room Air 08/14/24 11:21 Const General: cooperative, healthy appearing, comfortable and no acute distress Orientation/consciousness: patient oriented x3 Limitations: no limitations HEENT Head: Yes normal to inspection Ears: hearing grossly normal bilaterally, external ears normal and TM's normal bilaterally General nose exam: Normal external nose present, Normal nares present and No nasal discharge present Face and sinus: Yes normal facial exam and Yes sinuses nontender Mouth: Normal oral and palatal mucosa present and moist mucous membranes Throat: Yes tonsils normal, Yes uvula midline and Yes posterior oropharynx abnormal (Erythema) Eyes General: appearance normal, both eyes and all related structures Neck Neck: Yes normal visual inspection Resp Effort & Inspection: normal respiratory effort, able to speak in complete sentences, Actively coughing, no respiratory distress, not tachypneic, no tripod positioning and no use of accessory muscles Auscultation: wheezes expiratory wheezes, inspiratory wheezes and throughout and vesicular breath sounds diffuse Cardio Rate: regular rate Rhythm: regular rhythm Heart sounds: normal S1 and S2 Skin General skin exam: no rashes or lesions noted Neuro General: patient oriented x3 Extrem General: Yes normal to inspection and Yes no clubbing, cyanosis or edema Assessment & Plan Assessment & Plan (1) Lower respiratory infection (e.g., bronchitis, pneumonia, pneumonitis, pulmonitis): Code(s): J22 - Unspecified acute lower respiratory infection Plan: Patient is satting 95% on room air, other vital signs are stable. Patient is well-appearing lung sounds are vesicular and wheezy throughout. We will get a chest x-ray based on this. Also we will test for flu COVID and RSV, sent low- dose prednisone as well as a Z-John. If chest x-ray does show pneumonia, we will add Augmentin. Orders: Orders SARS-CoV2/FLU/RSV Today J22 - Unspecified acute lower respiratory infection XR chest 2V Today R05.9 - Cough, unspecified Medications: New prednisone 40 mg (2 x 20 mg) PO DAILY 10 tabs 0RF azithromycin For 250 mg dose pack: take 500 mg today (day 1), then 250 mg for 4 days (days 2-5) PO 6 tabs 0RF benzonatate 200 mg PO TID PRN 10 caps 0RF cough Coding Level of Care Code Est Pt Level 4 (03478) Diagnoses Lower respiratory infection (e.g., bronchitis, pneumonia, pneumonitis, pulmonitis) J22
[2024-08-14 11:21] VITALS: BP 122/80; PULSE 66; TEMP 36.8; O2SAT 95
== END 2024-08-14 11:51 | disposition home or self-care (01) ==
PROVIDERS: PCP Internal Medicine; Visit Provider Physician Assistant
DX: J22 Unspecified acute lower respiratory infection (principal)

== ENCOUNTER 2024-08-14 11:17 | Outpatient (REF) | payer BC, SELFPAY ==
[2024-08-14 14:23] LABS: Influenza A PCR NEGATIVE (Negative); Influenza B PCR NEGATIVE (Negative); Resp Syncy Virus RNA Qual PCR NEGATIVE (Negative); SARS COV2 PCR INHOUSE NEGATIVE (Negative)
== END 2024-08-14 11:18 | disposition home or self-care (01) ==
LOC: HO.LAB 11:17
PROVIDERS: PCP Internal Medicine; Visit Provider Physician Assistant
DX: J22 Unspecified acute lower respiratory infection (principal)
CPT/HCPCS: 0241U

== ENCOUNTER 2024-08-14 11:48 | Outpatient (REF) | payer BC, SELFPAY ==
--- NOTE | ~2024-08-14 | XR_ITS ---
EXAMINATION: XR CHEST 2 VIEWS HISTORY: R05.9 - Cough, unspecified COMPARISON: Comparison is made with the prior examination dated 06/28/2023. FINDINGS: PA and lateral views of the chest are submitted. The lungs are expanded and clear. There is no pleural effusion, pneumothorax, or pulmonary vascular congestion. The heart is normal in size. The aorta is tortuous. There is degenerative disc disease of the spine. XR/XR chest 2V IMPRESSION: No acute cardiopulmonary abnormality. Electronically signed by: Aden Mims MD 08/14/2024 12:47 PM [facility]
== END 2024-08-14 11:49 | disposition home or self-care (01) ==
LOC: HO.HMGCX 11:48
PROVIDERS: PCP Internal Medicine; Visit Provider Physician Assistant
DX: R05.9 Cough, unspecified (principal)
CPT/HCPCS: 71046

== ENCOUNTER → 2024-08-14 11:53 | Outpatient (BNV) | payer BC, SELFPAY | PROVIDERS: PCP Internal Medicine; Visit Provider Radiology Diagnostic Radiology | DX: R05.9 Cough, unspecified (principal) | CPT/HCPCS: 71046 ==

== ENCOUNTER 2024-09-07 12:48 | Outpatient (AMB) | payer BC, SELFPAY ==
[2024-09-07 12:51] VITALS: BP 120/80; PULSE 66; TEMP 36.8; O2SAT 97; BMI 27.0
--- NOTE | 2024-09-07 12:51 | AM.OFFWIN_ITS ---
Intake Vital Signs 09/07/24 12:51 Height 5 ft 1 in Weight 143 lb BMI 27.0 BP 120/80 Blood Pressure Location Rt brachial Position Sitting Pulse 66 Pulse Source Pulse Oximeter Temp 98.2 F Temp Source Oral Pulse Oximetry (%) 97 Oxygen Delivery Method Room Air Intake Visit Reasons: EP Cough, body aches, congestion Intake Note: pt is here for cough, body aches, congestion Patient Tobacco Use Status: Never used Tobacco Allergies amoxicillin [AMOXICILLIN] Allergy (Unknown, Verified 09/07/24 12:59) ANAPHYLAXIS codeine [CODEINE] Allergy (Unknown, Verified 09/07/24 12:59) UNKNOWN guaifenesin [Mucinex] Allergy (Unknown, Verified 09/07/24 12:59) Unknown Iodinated Contrast Media [IV CONTRAST] Allergy (Unknown, Verified 09/07/24 12:59) ANAPHYLAXIS levalbuterol [From XOPENEX] Allergy (Unknown, Verified 09/07/24 12:59) DIFFICULTY BREATHING naproxen Allergy (Unknown, Verified 09/07/24 12:59) Unknown penicillin V Allergy (Unknown, Verified 09/07/24 12:59) anaphylaxis Penicillins [PENICILLINS] Allergy (Unknown, Verified 09/07/24 12:59) ANAPHYLAXIS lidocaine Adverse Reaction (Unknown, Verified 09/07/24 12:59) Irritated, itchy Codeine Phosphate Allergy (Unknown, Uncoded 09/07/24 12:59) Unknown ct dye Allergy (Unknown, Uncoded 09/07/24 12:59) anaphylaxis IV Contrast Allergy (Unknown, Uncoded 09/07/24 12:59) Unknown seasonal/environmental Allergy (Unknown, Uncoded 09/07/24 12:59) Unknown tomatoes,OJ,vinegar Allergy (Unknown, Uncoded 09/07/24 12:59) Unknown Medication List - Last Reconciled 09/07/24 by Demetrice Meneses, TRAPEZE PERFORMER- montelukast 10 mg PO DAILY 90 days mupirocin 2% 1 appl topical BID 14 days sertraline 50 mg PO DAILY 30 days Do you need a note to return to daycare/school/sports/work: No HPI HPI Comments History of Present Illness Details History of Present Illness The patient is a 64-year-old female presenting with persistent cough and wheezing. The patient initially began experiencing symptoms, including congestion and body aches, on August 07. Initial treatments included prednisone, a Z-John, and a COVID test accompanied by a chest X-ray. The patient reported transient improvement for about one week but then experienced a recurrence of cough accompanied by significant wheezing. The cough is described as persistent and troublesome, impacting sleep, with no associated fever at any point. The patient has a history of asthma which had been well controlled, with no requirement for an inhaler for two years. However, the recent recurrence of respiratory symptoms has necessitated the use of inhalers. The patient reports a past exposure to asbestos and has experienced improvement in allergies over time. Walk in visit 08/14/24 reviewed. Viral swab neg. CXR negative. Social History - Employment: Previously worked at a [employer] home, exposed to asbestos in that environment. - Physical activity: Patient tries to re main active despite feeling unwell, as staying bedridden worsens symptoms. Physical Exam General: Awake, alert. No apparent distress Eyes: Sclera and conjunctiva clear bilaterally Nose: Nares clear d/c, turbinates within normal limits, no sinus tenderness with palpation bilaterally Ears: Tympanic membranes intact and clear bilaterally Throat: Moist mucosa membrane, pharynx within normal limits Cardiovascular: Regular rate and rhythm Respiratory: ins/exp wheeze throughout Results - Tests: Initial tests including a COVID test and chest X-ray performed on August 14 were negative. Discussion Notes I discussed with the patient the recurrent nature of her symptoms and the unusua l presentation during this flu season which includes concurrent viral infections like the flu, RSV, and COVID-19. We explored the patient's experience with wheezing and her past asthma management. A repeat swab test was suggested due to the persistence of symptoms and the possibility of re-infection. The necessity of a follow-up chest X-ray was explained to further evaluate her respiratory condition. I outlined that the current management plan would depend on these results and asserted the importance of addressing any new developments with her symptoms. Arrangements were made to reach out with test results and develop a comprehensive management plan based on these findings. Patient Instructions - Proceed to x-ray registration for a re peat chest x-ray. - Await contact for follow-up with the t est results. - Be aware of any worsening symptoms or new developments, and report them promptly. Plan - Administer a repeat COVID-19 swab to a ssess for a new or persistent infection. - Request a repeat chest X-ray to evalua te ongoing wheezing. - Consideration for allergy and asthma m anagement updates depending on the results of the diagnostics and current assessment. Patient was informed and verbally consented to the use of an ambient scribe for clinic note documentation during this visit. CXR and Viral swab neg. Start combivent QID and refer to pulm for her asthma mgmt. She states she can tolerate albuterol im getting better with my allergic reactions States she has taken updrafts w/ albuterol and felt fine. [facility] Medical History Infection of skin due to methicillin resistant Staphylococcus aureus (MRSA) Overweight (BMI 25.0-29.9) Moderate persistent asthma, uncomplicated Renal calculus, right Osteoporosis Compression fracture of T12 vertebra Anxiety Asthma Surgical History H/O right knee surgery Hx of tonsillectomy H/O eye surgery Family History Father Family history unknown Mother Family history unknown Social History Household Members Other:: fiance Housing: Apartment Alcohol intake: current Alcohol intake frequency: holidays/special occasions only Patient Tobacco Use Status: Never used Tobacco e-Cigarette/Vaping Use: Never Used Second Hand Smoke Exposure: No service: No Current occupational status: employed 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 Specimen Inquiry Name: Alejandra Rodriguez Age/Sex: 64/F : 1960 Unit#: [id number] Attend Dr: Demetrice Meneses [facility] Re09/07/24 Status: DEP REF Location: [facility] Disch: SPEC : [id number] [place]: 09/07/24 STATUS: COMP REQ : [id number] RECD: 09/07/[address] [facility] [address]: Demetrice Meneses [facility] COMP: 09/07/24 ENTERED: 09/07/24-15[address] [facility] [address]: Tre Maldonado MD ORDERED: SARS/FLU/RSV Test Result Flag Reference Influenza A PCR NEGATIVE Negative Influenza B PCR NEGATIVE Negative RSV RNA QualPCR NEGATIVE Negative SARSCOV2 RT-PCR NEGATIVE Negative All test results must be correlated with clinical findings. Negative results do not preclude SARS-CoV2, influenza A virus, influenza B virus and/or RSV infection and should not be used as the sole basis for treatment or other patient management decisions. Negative results must be combined with clinical observations, patient history, and epidemiological information. This test has not been evaluated for monitoring treatment of infection. This test has been authorized by the FDA under an Emergency Use Authorization (EUA) for use by authorized laboratories. Testing performed on the [employer] GeneXpert utilizing real-time RT-PCR. All SARS CoV2 and positive influenza A/B results are reported to DIVYA Paul. END OF REPORT [facility] [address] [place] [address] XRay Report Signed Patient: Alejandra Rodriguez MR#: [id number] : 1960 Acct:[id number] Age/Sex: 64 / F ADM Date: 09/07/24 Loc: .[facility] Attending Dr: Demetrice SUBRAMANIAN Ordering Physician: Demetrice Meneses Date of Service: 09/07/24 Procedure(s): XR chest 2V Accession Number(s): [id number] cc: Tre Maldonado MD; Demetrice Meneses~ CLINICAL HISTORY: R05.9 - Cough, unspecified 2 view chest x-ray Comparison: None Findings: No consolidation or effusion. Normal size heart. No acute fracture. IMPRESSION: 1. No acute findings. This document has been electronically signed by: Tim Gunn MD on 09/07/2024 14:05:32 Dictated By: Tim Gunn MD Signed By: <Electronically signed by Tim Gunn MD in OV> 09/07/24 1406 DD/ 1405 TD/TT: 09/07/24 1405 Exceptional Student Education Teacher: Assessment & Plan Assessment & Plan (1) Cough: Code(s): R05.9 - Cough, unspecified Qualifiers: Cough type: subacute Qualified Code(s): R05.2 - Subacute cough (2) Wheezing: Code(s): R06.2 - Wheezing (3) Asthma: Code(s): J45.909 - Unspecified asthma, uncomplicated Qualifiers: Asthma complication type: uncomplicated Asthma persistence: persistent Asthma severity: moderate Qualified Code(s): J45.40 - Moderate persistent asthma, uncomplicated Plan . Orders: Orders XR chest 2V 09/07/24 R05.9 - Cough, unspecified, R06.2 - Wheezing SARS-CoV2/FLU/RSV 09/07/24 R05.9 - Cough, unspecified, R06.2 - Wheezing, R09.89 - Other specified symptoms and signs involving the circulatory and respiratory systems Referrals Pulmonology Referral J45.40 - Moderate persistent asthma, uncomplicated Medications: New ipratropium-albuterol 20-100 mcg/actuation (Combivent Respimat) space evenly during waking hours 1 puff inhalation QID 4 grams 0RF Coding Level of Care Code Est Pt Level 4 (09502) Diagnoses Subacute cough R05.2 Cough type: subacute Wheezing R06.2 Moderate persistent asthma without complication J45.40 Asthma complication type: uncomplicated Asthma persistence: persistent Asthma severity: moderate Time Spent (min) 30
== END 2024-09-07 13:30 | disposition home or self-care (01) ==
PROVIDERS: PCP Internal Medicine; Visit Provider Nurse Practitioner Family
DX: J45.40 Moderate persistent asthma, uncomplicated (principal); R05.2 Subacute cough

== ENCOUNTER 2024-09-07 12:48 | Outpatient (REF) | payer BC, SELFPAY ==
--- NOTE | ~2024-09-07 | XR_ITS ---
CLINICAL HISTORY: R05.9 - Cough, unspecified 2 view chest x-ray Comparison: None Findings: No consolidation or effusion. Normal size heart. No acute fracture. IMPRESSION: 1. No acute findings. This document has been electronically signed by: Tim Gunn MD on 09/07/2024 14:05:32
[2024-09-07 17:01] LABS: Influenza A PCR NEGATIVE (Negative); Influenza B PCR NEGATIVE (Negative); Resp Syncy Virus RNA Qual PCR NEGATIVE (Negative); SARS COV2 PCR INHOUSE NEGATIVE (Negative)
== END 2024-09-07 12:49 | disposition home or self-care (01) ==
LOC: HO.HMGCX 12:48
PROVIDERS: PCP Internal Medicine; Visit Provider Nurse Practitioner Family
DX: R05.2 Subacute cough (principal); R06.2 Wheezing; R09.89 Other specified symptoms and signs involving the circulatory and respiratory systems
CPT/HCPCS: 0241U; 71046

== ENCOUNTER → 2024-09-07 13:23 | Outpatient (BNV) | payer BC, SELFPAY | PROVIDERS: PCP Internal Medicine; Visit Provider Radiology Diagnostic Radiology | DX: R05.9 Cough, unspecified (principal) | CPT/HCPCS: 71046 ==

== ENCOUNTER 2024-09-09 15:07 | Outpatient (AMB) | payer BC, SELFPAY ==
--- NOTE | 2024-09-09 15:22 | A.OFFPC_ITS ---
Vital Signs 09/09/24 15:23 Height 5 ft 1 in Weight 142 lb 6 oz BMI 26.9 BP 140/78 H Blood Pressure Location Lt brachial Position Sitting Pulse 69 Pulse Source Pulse Oximeter Temp 97.8 F Temp Source Skin Pulse Oximetry (%) 99 Oxygen Delivery Method Room Air Intake Visit Reasons: Asthma/Sick for a month Intake Note: Patient is here to follow up on Asthma, sick for a month. Channel Director Required: No Supervisor Malted Milk: Present Accompanied by: Spouse Allergies amoxicillin [AMOXICILLIN] Allergy (Unknown, Verified 09/09/24 15:40) ANAPHYLAXIS codeine [CODEINE] Allergy (Unknown, Verified 09/09/24 15:40) UNKNOWN guaifenesin [Mucinex] Allergy (Unknown, Verified 09/09/24 15:40) Unknown Iodinated Contrast Media [IV CONTRAST] Allergy (Unknown, Verified 09/09/24 15:40) ANAPHYLAXIS levalbuterol [From XOPENEX] Allergy (Unknown, Verified 09/09/24 15:40) DIFFICULTY BREATHING naproxen Allergy (Unknown, Verified 09/09/24 15:40) Unknown penicillin V Allergy (Unknown, Verified 09/09/24 15:40) anaphylaxis Penicillins [PENICILLINS] Allergy (Unknown, Verified 09/09/24 15:40) ANAPHYLAXIS lidocaine Adverse Reaction (Unknown, Verified 09/09/24 15:40) Irritated, itchy Codeine Phosphate Allergy (Unknown, Uncoded 09/09/24 15:40) Unknown ct dye Allergy (Unknown, Uncoded 09/09/24 15:40) anaphylaxis IV Contrast Allergy (Unknown, Uncoded 09/09/24 15:40) Unknown seasonal/environmental Allergy (Unknown, Uncoded 09/09/24 15:40) Unknown tomatoes,OJ,vinegar Allergy (Unknown, Uncoded 09/09/24 15:40) Unknown Medication List - Last Reconciled 09/09/24 by Tre Maldonado MD ipratropium-albuterol 20-100 mcg/actuation (Combivent Respimat) 1 puff inhalation QID montelukast 10 mg PO DAILY 90 days mupirocin 2% 1 appl topical BID 14 days sertraline 50 mg PO DAILY 30 days Tobacco use date assessed: 09/09/24 Fall risk assessment: No Falls in past year Last assessed Fall Risk: 09/09/24 Dental Screening Dental Screen Date: 09/09/24 Did you have a dental visit in the last 12 months?: No Did you have a dental problem in the last 6 months where you did not have access to dental care?: No Was dental information given to patient?: Patient has dentist HPI Asthma/Sick for a month HPI Details Patient comes in today complaining that she has been sick for over a month now She has been to the walk-in clinic a couple of times over the past month for the same complaints - increased cough and congestion, wheezing/SOB/chest tightness States that she was prescribed a Z-suman and oral prednisone at her first visit to the walk-in last month, which provided her with some relief of her symptoms but her relief only lasted for a week or so She went back to the walk-in clinic a few days ago and this time, was given an updraft and started on Combivent and referred to pulmonary for further management She has not yet heard from pulmonary regarding her appointment She was also sent for further testing and she came out negative for COVID, influenza and RSV States that she is currently still experiencing chest tightness often, with frequent SOB and DOMINGUEZ as well as recurrent wheezing She denies any fever, headaches or dizziness Denies any chest pains No nausea/vomiting, no abdominal pain No change in bowel habits noted Patient states that she does not have a nebulizer at home Admits that she has also not been taking Montelukast or using any of her maint enance asthma inhalers for the past year or two now as her asthma has been well- controlled and she has not had any flare ups of her asthma until this past month Relates that she has been drinking Tur[place] regularly for the past couple of years and this seems to have helped her asthma a lot as she has not had any flare ups in almost 2 years until recently [facility] Medical History Infection of skin due to methicillin resistant Staphylococcus aureus (MRSA) Overweight (BMI 25.0-29.9) Moderate persistent asthma, uncomplicated Renal calculus, right Osteoporosis Compression fracture of T12 vertebra Anxiety Asthma Surgical History H/O right knee surgery Hx of tonsillectomy H/O eye surgery Family History Father Family history unknown Mother Family history unknown Social History Household Members Other:: fiance Housing: Apartment Alcohol intake: current Alcohol intake frequency: holidays/special occasions only Patient Tobacco Use Status: Never used Tobacco e-Cigarette/Vaping Use: Never Used Second Hand Smoke Exposure: No service: No Current occupational status: employed 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 1. Little interest or pleasure in doing things: more than half the days 2. Feeling down, depressed, or hopeless: nearly every day 3. Trouble falling or staying asleep, or sleeping too much: nearly every day 4. Feeling tired or having little energy: more than half the days 5. Poor appetite or overeating: not at all 6. Feeling bad about yourself - or that you are a failure or have let yourself or your family down: not at all 7. Trouble concentrating on things, such as reading the newspaper or watching television: not at all 8. Moving or speaking so slowly that other people could have noticed. Or the opposite - being so fidgety or restless that you have been moving around a lot more than usual: not at all 9. Thoughts that you would be better off or of hurting yourself in some way: not at all Total score: 10 Depression Screening Interpretation: Positive Depression Screening Follow-up: Existing condition and In treatment Depression Screening Done: Yes 15632 - PHQ-9 Billing: Yes Source: Developed by Drs. Aden Sargent, Raissa Sam, Oli Garcia and colleagues, with an educational guillermo from [employer]. Thrive Questionnaire Date Thrive assessed: 09/09/24 I am a: Patient What is your living situation today?: I have a steady place to live Within the past 12 months, did the food you bought not last and you didn't have the money to get more?: Never true Within the past 12 months, did you worry whether your food would run out before you got money to buy more?: Never true Do you have trouble paying for medicines?: No Do you have trouble getting transportation to medical appointments?: No Do you have trouble paying your heating and electricity bill?: No Do you have trouble taking care of your child, family member or friend?: No Do you have trouble with day-to-day activities such as bathing, preparing meals, shopping, managing finances, etc.?: No Are you currently unemployed and looking for a job?: No Are you interested in more education?: No Please select the resources that you would like help with: None Currently or been in a relationship where the following occur: No concerns reported THRIVE Score: 0 AUDIT C Alcohol Use Questionnaire (AUDIT-C) 1. How often do you have a drink containing alcohol?: Never 3. How often do you have six or more drinks on one occasion?: Never Total Score: 0 Score Reviewed/Action Taken: Yes PALOMA-7 AMB Questionnaire PALOMA-7 Date PALOMA - 7 assessed: 09/09/24 Feeling nervous, anxious, or on edge: 2 = More than half the days Not being able to stop or control worryin = More than half the days Worrying too much about different things: 1 = Several days Trouble relaxin = More than half the days Being so restless that it is hard to sit still: 2 = More than half the days Becoming easily annoyed or irritable: 2 = More than half the days Feeling afraid as if something awful might happen: 1 = Several days Total PALOMA-7 score (0-4 normal; 5-9 mild; 10-14 moderate; 15-21 severe): 12 Source: Developed by Drs. Aden Sargent, Raissa Sam, Oli Garcia and colleagues, with an educational guillermo from [employer]. Review of Systems Const Denies chills, Reports fatigue, Denies fever(s) and Denies headache(s) ENT Denies dizziness, Denies otalgia, Denies headache(s), Reports nasal congestion, Denies odynophagia, Denies sinus pain and Denies sore throat Card Denies chest pain, Denies irregular heart rhythm, Denies palpitations, Reports dyspnea and Reports dyspnea on exertion Resp Denies chest congestion (but chest feels tight often), Reports cough (recurrent - coughs up thick whitish phlegm often lately), Denies hemoptysis, Reports dyspnea, Reports dyspnea on exertion and Reports wheezing (on and off) GI Denies abdominal pain, Denies constipation, Denies heartburn, Denies diarrhea, Denies nausea, Denies odynophagia and Denies vomiting Denies nocturia and Denies dysuria Musc Denies back pain Skin/Breast Denies rash Neuro Denies dizziness and Denies headache(s) Endo Reports fatigue and Denies palpitations Aller/Immun Reports wheezing (on and off) Physical exam (Primary Care) Vital Signs: Last Vital Signs Temp 97.8 F 09/09/24 15:23 Pulse 69 09/09/24 15:23 BP 140/78 H 09/09/24 15:23 Pulse Ox 99 09/09/24 15:23 Oxygen Delivery Method Room Air 09/09/24 15:23 BMI result Body Mass Index 26.9 Tobacco/Smoking Status: Tobacco use Status Tobacco use date assessed 09/09/24 09/09/24 15:32 Patient Tobacco Use Status Never used Tobacco 09/09/24 15:32 e-Cigarette/Vaping Use Never Used 09/09/24 15:32 PHQ-9: PHQ-9 Score PHQ-9: Total score 10 09/09/24 15:42 Depression Screening Interpretation: Positive Depression Screening Follow-up: Existing condition and In treatment Thrive Assessment: Date of Thrive Assessment Date Thrive assessed 09/09/24 09/09/24 15:32 Currently or been in a relationship where the following occur: No concerns reported Const General: no acute distress and alert HENMT Ears: TM's normal bilaterally and EAC's normal Throat: Yes posterior oropharynx normal and Yes tonsils normal Neck Neck: Yes supple and No lymphadenopathy Resp Auscultation: no crackles, no rales, rhonchi (scattered) throughout, wheezes (occasional) expiratory wheezes and diminished lung sounds bilateral Cardio Rate: regular rate Rhythm: regular rhythm Heart sounds: no murmurs GI Palpation (GI): Soft to palpation and nontender Auscultation: normal bowel sounds General: Yes no CVA tenderness Back/Spine/Pelvis Back: no CVA tenderness Thoracic/Lumbar Spine: No lumbar spinal tenderness Skin Rashes: no rashes Extrem General: Yes no clubbing, cyanosis or edema Coding Level of Care Code Est Pt Level 4 (92641) Diagnoses Moderate persistent asthma with exacerbation J45.41 Asthma severity: moderate Asthma persistence: persistent Other osteoporosis with current pathological fracture, sequela M80.80XS Osteoporosis type: other Presence of current pathological fracture: with current pathological fra cture Encounter type: sequela Compression fracture of T12 vertebra, sequela S22.080S Encounter type: sequela Renal calculus, right N20.0 Anxiety F41.9 Additional Codes PHQ-9 - 78989 - PHQ-9 Billing: Yes ([id number]) Time Spent (min) 33 Assessment & Plan Assessment & Plan (1) Asthma exacerbation: Code(s): J45.901 - Unspecified asthma with (acute) exacerbation Category: Medical Qualifiers: Asthma severity: moderate Asthma persistence: persistent Qualified Code(s): J45.41 - Moderate persistent asthma with (acute) exacerbation Plan: Patient was given an updraft treatment today with Duoneb in the office due to significant chest tightness and wheezing on exam she reports experiencing significant improvement of her symptoms after her nebulizer Tx She tested negative for influenza, COVID and RSV a few days ago Will start her again on oral prednisone taper - starting at 60 mg / day and gradually tapering her dose down every 3 days Will start her as well on empiric Abx Tx with Doxycycline 100 mg BID x 7 days She reports that she has not been using any of her maintenance asthma Rx/inhalers for the past year or so now Will start her back on Montelukast 10 mg QD and also on Symbicort 160-4.5 mcg 1 inhalation BID, which she is instructed to use BID EVERYDAY Rx for Ventolin HFA refilled as well for her rescue inhaler We will also provide her with Rx for a nebulizer unit and have advised her that someone from the medical supply store will be reaching out to her in the next week or two to schedule delivery of this to her She has been referred to Pulmonary by the walk-in clinic a few days ago and she is encouraged to pursue this and to start seeing a pulmonary for management and follow-up of her asthma (2) Osteoporosis: Code(s): M81.0 - Age-related osteoporosis without current pathological fracture Category: Medical Qualifiers: Osteoporosis type: other Presence of current pathological fracture: with current pathological fracture Encounter type: sequela Qualified Code(s): M80.80XS - Other osteoporosis with current pathological fracture, unspecified site, sequela Plan: Her BMD done back on 04/18/2019 revealed (+) significant osteoporosis with a lowest T-score value of -4.9 Patient was referred to endocrinology back in 2018 for further evaluation and management of her osteoporosis - states that she was tried on some unrecalled medication which she could not tolerate She was seen most recently by Dr. Davis back in 2021 and was started on Evenity - plan was to take Evenity x 1 year then switch her back to Alendronate but patient has not followed up with Dr. Davis since and is currently no longer on any Rx for her osteoporosis She has been previously advised early last year (2023) to reach out to Dr. Davis's office to schedule a follow up appointment LINDY to help address her osteoporosis but she does not appear to have done so yet Will try scheduling her for a repeat bone density to see how she is now compared to her previous BMD Continue daily oral Calcium and Vitamin D supplements and reinforced fall precautions (3) Compression fracture of T12 vertebra: Code(s): S22.080A - Wedge compression fracture of T11-T12 vertebra, initial encounter for closed fracture Category: Medical Qualifiers: Encounter type: sequela Qualified Code(s): S22.080S - Wedge compression fracture of T11-T12 vertebra, sequela Plan: Chest CT done in 01/2021 incidentally revealed (+) T12 compression fracture - this was most likely due to her osteoporosis as patient denies any injury or falls that could have contributed to this States that her back pains have been mostly manageable lately Continue Lidocaine patches QD PRN Reinforced fall precautions (4) Renal calculus, right: Code(s): N20.0 - Calculus of kidney Category: Medical Plan: Chest CT done back in 01/2021 also revealed incidentally the presence of some small right renal stones Patient is currently asymptomatic from a urology standpoint Follow-up with Urology as scheduled (5) Anxiety: Code(s): F41.9 - Anxiety disorder, unspecified Category: Medical Plan: Continue Sertraline 50 mg QD - Rx refilled Plan Follow up in 4 weeks Orders: Orders XR DEXA axial skeleton Today M80.80XS - Other osteoporosis with current pathological fracture, unspecified site, sequela, Z78.0 - Asymptomatic menopausal state Medications: New doxycycline hyclate 100 mg PO BID 7 days 14 caps 0RF prednisone 6 tablets x 3 days, then 5 tablets x 3 days, then 4 tablets x 3 days, then 3 tablet x 3 days, then 2 tablets x 3 days, then 1 tablet x 3 days 18 days 63 ea 0RF J44.1 - Chronic obstructive pulmonary disease with (acute) exacerbation, J45.901 - Unspecified asthma with (acute) exacerbation Symbicort 160-4.5 mcg/actuation (budesonide-formoterol) 1 puff inhalation BID 10.2 grams 5RF NS albuterol sulfate 90 mcg/actuation (Ventolin HFA) 2 puffs inhalation Q6H 30 days PRN 8.5 grams 5RF shortness of breath or wheezing [NEBULIZER with all accessories] As directed 1 ea 0RF asthma exacerbation J45.40 - Moderate persistent asthma, uncomplicated Refilled sertraline SECOND ATTEMPT TO SEND Rx. Was first sent in on 10/09/2023 50 mg PO DAILY 30 days 30 tabs 2RF F41.9 - Anxiety disorder, unspecified montelukast 10 mg PO DAILY 90 days 90 tabs 3RF L50.9 - Urticaria, unspecified
[2024-09-09 15:23] VITALS: BP 140/78; PULSE 69; TEMP 36.6; O2SAT 99; BMI 26.9
== END 2024-09-09 15:59 | disposition home or self-care (01) ==
PROVIDERS: PCP Internal Medicine; Visit Provider Internal Medicine
DX: J45.41 Moderate persistent asthma with (acute) exacerbation (principal); M80.80XS Other osteoporosis with current pathological fracture, unspecified site, sequela; S22.080S Wedge compression fracture of T11-T12 vertebra, sequela; N20.0 Calculus of kidney; F41.9 Anxiety disorder, unspecified

== ENCOUNTER → 2024-09-09 15:07 | Outpatient (BNVA) | payer BC, SELFPAY | PROVIDERS: PCP Internal Medicine; Visit Provider Internal Medicine | DX: J45.41 Moderate persistent asthma with (acute) exacerbation (principal); M80.80XS Other osteoporosis with current pathological fracture, unspecified site, sequela; S22.080S Wedge compression fracture of T11-T12 vertebra, sequela; N20.0 Calculus of kidney; F41.9 Anxiety disorder, unspecified; Z79.899 Other long term (current) drug therapy | CPT/HCPCS: 96127 ==

== ENCOUNTER 2024-10-07 13:34 | Outpatient (AMB) | payer BC, SELFPAY ==
--- NOTE | 2024-10-07 13:51 | A.OFFPC_ITS ---
Vital Signs 10/07/24 13:55 Height 5 ft 1 in Weight 143 lb 2 oz BMI 27.0 BP 120/66 Blood Pressure Location Lt brachial Position Sitting Pulse 67 Pulse Source Pulse Oximeter Temp 97.7 F Temp Source Temporal Artery Scan Pulse Oximetry (%) 96 Oxygen Delivery Method Room Air Intake Visit Reasons: asthma Intake Note: Patient is here to follow up on Asthma. Railway Signal Technician Required: No Radiotelegraph Operator: Not Required per policy Accompanied by: Self / Same As Patient Allergies amoxicillin [AMOXICILLIN] Allergy (Unknown, Verified 10/08/24 02:31) ANAPHYLAXIS codeine [CODEINE] Allergy (Unknown, Verified 10/08/24 02:31) UNKNOWN guaifenesin [Mucinex] Allergy (Unknown, Verified 10/08/24 02:31) Unknown Iodinated Contrast Media [IV CONTRAST] Allergy (Unknown, Verified 10/08/24 02:31) ANAPHYLAXIS levalbuterol [From XOPENEX] Allergy (Unknown, Verified 10/08/24 02:31) DIFFICULTY BREATHING naproxen Allergy (Unknown, Verified 10/08/24 02:31) Unknown penicillin V Allergy (Unknown, Verified 10/08/24 02:31) anaphylaxis Penicillins [PENICILLINS] Allergy (Unknown, Verified 10/08/24 02:31) ANAPHYLAXIS lidocaine Adverse Reaction (Unknown, Verified 10/08/24 02:31) Irritated, itchy Codeine Phosphate Allergy (Unknown, Uncoded 10/08/24 02:31) Unknown ct dye Allergy (Unknown, Uncoded 10/08/24 02:31) anaphylaxis IV Contrast Allergy (Unknown, Uncoded 10/08/24 02:31) Unknown seasonal/environmental Allergy (Unknown, Uncoded 10/08/24 02:31) Unknown tomatoes,OJ,vinegar Allergy (Unknown, Uncoded 10/08/24 02:31) Unknown Medication List - Last Reconciled 10/07/24 by KADEN Myers albuterol sulfate 90 mcg/actuation (Ventolin HFA) 2 puffs inhalation Q6H PRN 30 days ipratropium-albuterol 20-100 mcg/actuation (Combivent Respimat) 1 puff inhalation QID montelukast 10 mg PO DAILY 90 days mupirocin 2% 1 appl topical BID 14 days [NEBULIZER with all accessories As directed] prednisolone acetate 1% 1 drp ophthalmic (eye) QID sertraline 50 mg PO DAILY 30 days Symbicort 160-4.5 mcg/actuation (budesonide-formoterol) 1 puff inhalation BID NS Tobacco use date assessed: 10/07/24 Fall risk assessment: No Falls in past year Last assessed Fall Risk: 10/07/24 Dental Screening Dental Screen Date: 09/09/24 HPI asthma HPI Details The patient is a 64-year-old female with significant past medical history of moderate persistent asthma The patient is presenting today for follow up evaluation after treatment for asthma Reports that her asthma/breathing is much better. Her lungs are compromise from working at the [employer] Reports that the [employer] home had asbestos and her asthma used to be bad but had gotten better after stopped working there Reports that she used to see Dr. Maldonado more often but stopped coming due to the improvement in her asthma She also stopped taking her inhalers because she was feeling better However, her asthma started acting up and she went to the urgent care but she was not getting any better She called the office and they were able to squeezed her in to see Dr. Maldonado, who treated her with prednisone taper and doxycycline. She was also started back on her maintenance asthma treatments. She denies sob, chest tightness, or cough. Denies chest pain, heart palpitation and dizziness The patient was encouraged to continue with the treatment plan [facility] Medical History Infection of skin due to methicillin resistant Staphylococcus aureus (MRSA) Overweight (BMI 25.0-29.9) Moderate persistent asthma, uncomplicated Renal calculus, right Osteoporosis Compression fracture of T12 vertebra Anxiety Asthma Surgical History H/O right knee surgery Hx of tonsillectomy H/O eye surgery Family History Father Family history unknown Mother Family history unknown Social History Household Members Other:: fiance Housing: Apartment Alcohol intake: current Alcohol intake frequency: holidays/special occasions only Patient Tobacco Use Status: Never used Tobacco e-Cigarette/Vaping Use: Never Used Second Hand Smoke Exposure: No service: No Current occupational status: employed 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 Aden Sargent, Raissa Sam, Oli Garcia and colleagues, with an educational guillermo from [employer]. Review of Systems Const Details: Denies chills, Denies fatigue, Denies fever(s), Denies headache(s) and Denies weakness HEENT Denies change in vision, Denies dizziness, Denies headache(s), Denies hearing loss, Denies nasal congestion, Denies sinus pain, Denies sinus pressure and Denies sore throat Card Denies chest pain, Denies lightheadedness, Denies dyspnea and Denies other (palpitations) Resp Denies cough, Denies dyspnea and Denies wheezing GI Denies abdominal pain, Denies melena, Denies hematochezia, Denies change in bowel habits, Denies dyspepsia and Denies nausea Denies hematuria and Denies dysuria Physical exam (Primary Care) Vital Signs: Last Vital Signs Temp 97.7 F 10/07/24 13:55 Pulse 67 10/07/24 13:55 BP 120/66 10/07/24 13:55 Pulse Ox 96 10/07/24 13:55 Oxygen Delivery Method Room Air 10/07/24 13:55 BMI result Body Mass Index 27.0 Tobacco/Smoking Status: Tobacco use Status Tobacco use date assessed 10/07/24 10/07/24 14:01 Patient Tobacco Use Status Never used Tobacco 10/07/24 13:52 e-Cigarette/Vaping Use Never Used 10/07/24 13:52 Thrive Assessment: Date of Thrive Assessment Date Thrive assessed 09/09/24 10/07/24 13:52 Const Other: General: no acute distress, well developed, alert and awake Nutritional Appearance: well nourished Orientation/consciousness: patient oriented x3 HENMT Head: Yes normocephalic and Yes atraumatic Ears: hearing grossly normal bilaterally and TM's normal bilaterally General nose exam: Normal external nose present and Normal nares present Mouth: Normal oral and palatal mucosa present and moist mucous membranes Teeth and gingiva: dentition normal Throat: Yes oropharynx normal Eyes Pupils: Equal, round and reactive pupils present and Pupil accommodation reflex normal EOM: EOMs intact bilaterally Neck Neck: Yes normal visual inspection, Yes no lymphadenopathy and Yes trachea midline Thyroid: Thyroid normal Carotids: no bruits Lymphatic: no lymphadenopathy noted Resp Effort & Inspection: normal respiratory effort Auscultation: clear to auscultation bilaterally Cardio Rate: regular rate Rhythm: regular rhythm Heart sounds: S1 normal heart sound present, S2 normal heart sound present, no gallops, no murmurs and no rubs GI Palpation (GI): Abdomen is soft and nontender Auscultation: normal bowel sounds General: Yes no CVA tenderness Coding Level of Care Code Est Pt Level 3 (91953) Diagnoses Moderate persistent asthma with exacerbation J45.41 Asthma severity: moderate Asthma persistence: persistent Time Spent (min) 29 Assessment & Plan Assessment & Plan (1) Asthma exacerbation: Code(s): J45.901 - Unspecified asthma with (acute) exacerbation Category: Medical Qualifiers: Asthma severity: moderate Asthma persistence: persistent Qualified Code(s): J45.41 - Moderate persistent asthma with (acute) exacerbation Plan: Patient had a month of intermittent asthma flare-ups. The patient went to urgent care and was treated and had short-lived relief of her symptoms. The patient had stopped taking he asthma maintenance medications because she was feeling better. The patient was placed on Prednisone taper, doxycycline and given neb tx in office on her last visit. She was encouraged to resume the asthma treatment plan. She is smiling in office today and reporting that she is feeling like h erself again. She reports that she had stopped coming to the doctors for a while and is wondering if she get blood work done. Labs ordered for the patient to complete as soon as possible. Orders: Orders Complete Blood Count Auto Diff 10/07/24 J45.41 - Moderate persistent asthma with (acute) exacerbation, M80.80XS - Other osteoporosis with current pathological fracture, unspecified site, sequela, Z00.00 - Encounter for general adult medical examination without abnormal findings Comprehensive [place]. Panel Fast 10/07/24 J45.41 - Moderate persistent asthma with (acute) exacerbation, M80.80XS - Other osteoporosis with current pathological fracture, unspecified site, sequela, Z00.00 - Encounter for general adult medical examination without abnormal findings UA CC w/rflx Micro + Cult 10/07/24 J45.41 - Moderate persistent asthma with (acute) exacerbation, M80.80XS - Other osteoporosis with current pathological fracture, unspecified site, sequela, Z00.00 - Encounter for general adult medical examination without abnormal findings Vitamin D 25-OH Total 10/07/24 J45.41 - Moderate persistent asthma with (acute) exacerbation, M80.80XS - Other osteoporosis with current pathological fracture, unspecified site, sequela, Z00.00 - Encounter for general adult medical examination without abnormal findings Lipid Panel 10/07/24 J45.41 - Moderate persistent asthma with (acute) exacerba tion, M80.80XS - Other osteoporosis with current pathological fracture, unspecified site, sequela, Z00.00 - Encounter for general adult medical examination without abnormal findings TSH reflex Free T4 10/07/24 J45.41 - Moderate persistent asthma with (acute) exacerbation, M80.80XS - Other osteoporosis with current pathological fracture, unspecified site, sequela, Z00.00 - Encounter for general adult medical examination without abnormal findings Glucose Fasting 10/07/24 J45.41 - Moderate persistent asthma with (acute) exacerbation, M80.80XS - Other osteoporosis with current pathological fracture, unspecified site, sequela, Z00.00 - Encounter for general adult medical examination without abnormal findings
[2024-10-07 13:55] VITALS: BP 120/66; PULSE 67; TEMP 36.5; O2SAT 96; BMI 27.0
== END 2024-10-07 14:31 | disposition home or self-care (01) ==
PROVIDERS: PCP Internal Medicine
DX: J45.41 Moderate persistent asthma with (acute) exacerbation (principal)

== ENCOUNTER → 2024-10-07 13:34 | Outpatient (BNVA) | payer BC, SELFPAY | PROVIDERS: PCP Internal Medicine ==

== ENCOUNTER 2024-10-08 11:56 | Outpatient (REF) | payer BC, SELFPAY ==
[2024-10-08 12:11] LABS: MANUAL DIFF FLAG NO
[2024-10-08 12:38] LABS: Basophils Percent Auto 0.3 % (0-2); Eosinophils Percent Auto 0.1 % (0-4); Hematocrit 41.1 % (37.0-47.0); Hemoglobin 13.7 g/dl (12.0-16.0); Imm Gran Abs Auto 0.03 X10*3/uL (0.00-0.03); Imm Gran Pct Auto 0.4 % (0.0-0.4); Lymphocytes Absolute Auto 2.2 X10*3/uL (1.2-4.9); Lymphocytes Percent Auto 27.8 % (20-40); Mean Corpuscular HGB Conc 33.3 g/dl (31.0-35.0); Mean Corpuscular Hemoglobin 29.1 pg (27.0-33.0); Mean Corpuscular Volume 87.3 fL (80.0-98.0); Mean Platelet Volume 9.9 fL (9.4-12.3); Monocytes Absolute Auto 0.6 X10*3/uL (0.1-1.2); Monocytes Percent Auto 7.4 % (2-11); Platelet Count 247 X10*3/uL (160-400); Red Blood Count 4.71 X10*6/uL (4.20-5.50); Red Cell Distribution Width 13.1 % (11.0-16.0); White Blood Count 7.8 X10*3/uL (4.8-10.8)
[2024-10-08 12:45] LABS: Appearance Urine Clear; Color Urine Dark Yellow; Glucose Urine UA Negative (Negative); Leukocyte Esterase Urine Small (1+) (Negative); Nitrite Urine Negative (Negative); UMIC TRIGGER UACC YES; Urine Blood Negative (Negative); Urine Ketones Trace mg/dL (Negative); Urine Protein Trace mg/dL (Neg-Trace)
[2024-10-08 12:57] LABS: Bacteria Urine None Seen (None Seen); Hyaline Casts Urine 0-2 /LPF (0-2); UACC Culture Trigger YES
[2024-10-08 13:10] LABS: Alanine Aminotransferase 40 U/L (0-31); Albumin Level 4.4 g/dL (3.5-5.0); Alkaline Phosphatase 83 U/L (39-117); Anion Gap 11 (12-20); Aspartate Amino Transferase 31 U/L (5-31); Bilirubin Total 0.6 mg/dL (0.0-1.0); Blood Urea Nitrogen 10 mg/dL (9-16); Calcium 9.4 mg/dL (8.4-10.2); Carbon Dioxide 29 mmol/L (22-29); Chloride 104 mmol/L (96-108); Cholesterol 299 mg/dL (<200); Estimated Glomerular Filt Rate > 60; Glucose Fasting 95 mg/dL (60-99); HDL Cholesterol 53 mg/dL (>40); LDL Cholesterol Calculated 201 mg/dL (<100); Potassium 3.8 mmol/L (3.3-5.1); Sodium 140 mmol/L (135-145); Total Protein 7.7 g/dL (6.5-8.0); Triglycerides 229 mg/dL (<150)
[2024-10-08 13:27] LABS: TSH reflex Free T4 1.35 uIU/mL (0.32-4.0); Vitamin D 25-OH Total 63.1 ng/mL (>30)
== END 2024-10-08 11:57 | disposition home or self-care (01) ==
LOC: HO.LAB 11:56
PROVIDERS: PCP Internal Medicine
DX: Z00.00 Encounter for general adult medical examination without abnormal findings (principal); M80.80XS Other osteoporosis with current pathological fracture, unspecified site, sequela; J45.41 Moderate persistent asthma with (acute) exacerbation
CPT/HCPCS: 36415; 80053; 80061; 81001; 82306; 84443; 85025; 87086

== ENCOUNTER 2024-10-10 12:56 | Outpatient (AMB) | payer BC, SELFPAY ==
[2024-10-10 13:03] VITALS: BP 117/60; PULSE 79; O2SAT 98; BMI 27.0
--- NOTE | 2024-10-10 13:03 | MHC.OFFVIS ---
Vital Signs 10/10/24 13:03 Height 5 ft 1 in Weight 143 lb BMI 27.0 BP 117/60 Blood Pressure Location Rt brachial Position Sitting Pulse 79 Pulse Source Doppler Pulse Oximetry (%) 98 Oxygen Delivery Method Room Air Intake Visit Reasons: moderate asthma Allergies amoxicillin [AMOXICILLIN] Allergy (Unknown, Verified 10/10/24 13:08) ANAPHYLAXIS codeine [CODEINE] Allergy (Unknown, Verified 10/10/24 13:08) UNKNOWN guaifenesin [Mucinex] Allergy (Unknown, Verified 10/10/24 13:08) Unknown Iodinated Contrast Media [IV CONTRAST] Allergy (Unknown, Verified 10/10/24 13:08) ANAPHYLAXIS levalbuterol [From XOPENEX] Allergy (Unknown, Verified 10/10/24 13:08) DIFFICULTY BREATHING naproxen Allergy (Unknown, Verified 10/10/24 13:08) Unknown penicillin V Allergy (Unknown, Verified 10/10/24 13:08) anaphylaxis Penicillins [PENICILLINS] Allergy (Unknown, Verified 10/10/24 13:08) ANAPHYLAXIS lidocaine Adverse Reaction (Unknown, Verified 10/10/24 13:08) Irritated, itchy Codeine Phosphate Allergy (Unknown, Uncoded 10/08/24 02:31) Unknown ct dye Allergy (Unknown, Uncoded 10/08/24 02:31) anaphylaxis IV Contrast Allergy (Unknown, Uncoded 10/08/24 02:31) Unknown seasonal/environmental Allergy (Unknown, Uncoded 10/08/24 02:31) Unknown tomatoes,OJ,vinegar Allergy (Unknown, Uncoded 10/08/24 02:31) Unknown HPI HPI moderate asthma: Details: 64-year-old lady, former minimal smoker in high school, with longstanding asthma previously with multiple exacerbations while working for [employer] and remission for the most recent 2 years after returning from there, who had recent exacerbation lasting approximately months and a half over the last winter. Now using only albuterol MDI twice a day, previously on Combivent and Symbicort. Patient also previously use Singulair to control her allergy symptoms. Patient denies having recent pulmonary function or allergy testing. She does have history of COPD in her mother. She was employed without exposure to industrial dusts. Patient does have dogs as pets. [facility] Medical History Infection of skin due to methicillin resistant Staphylococcus aureus (MRSA) Overweight (BMI 25.0-29.9) Moderate persistent asthma, uncomplicated Renal calculus, right Osteoporosis Compression fracture of T12 vertebra Anxiety Asthma Surgical History H/O right knee surgery Hx of tonsillectomy H/O eye surgery Family History Father Family history unknown Mother Family history unknown Social History Household Members Other:: fiance Housing: Apartment Alcohol intake: current Alcohol intake frequency: holidays/special occasions only Patient Tobacco Use Status: Never used Tobacco e-Cigarette/Vaping Use: Never Used Second Hand Smoke Exposure: No service: No Current occupational status: employed 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 Sexual orientation: Straight/Heterosexual Gender identity: Female Cognitive needs: No Hearing needs: No Vision needs: Yes Female Reproductive History Menstrual Age of Menarche: 12 Review of Systems Const Denies daytime sleepiness, Denies excessive sweating, Denies fatigue, Denies fever(s), Denies lethargy, Denies malaise, Denies night sweats, Denies snoring and Denies weight loss Eyes Denies blurry vision and Denies itchy eyes ENT Denies nasal congestion, Denies post nasal drip, Denies sinus pain, Denies sinus pressure and Denies other ( Thrush) Card Denies chest pain, Denies pedal edema, Denies dyspnea, Denies orthopnea and Denies paroxysmal nocturnal dyspnea Resp Denies cough, Denies hemoptysis, Denies excessive phlegm production, Denies dyspnea, Denies snoring and Denies wheezing GI Denies abdominal pain and Denies heartburn Musc Denies myalgias, Denies arthralgias and Denies joint swelling Skin/Breast Denies rash Neuro Denies memory loss and Denies seizure-like activity Psych Denies abnormal sleep pattern, Denies anxiety and Denies memory loss Endo Denies excessive sweating, Denies fatigue and Denies heat intolerance Eric/Lymph Denies easy bruising Aller/Immun Denies itchy eyes, Denies seasonal rhinorrhea and Denies wheezing Physical Exam Vital Signs: Last Vital Signs Pulse 79 10/10/24 13:03 BP 117/60 10/10/24 13:03 Pulse Ox 98 10/10/24 13:03 Oxygen Delivery Method Room Air 10/10/24 13:03 BMI result Body Mass Index 27.0 Const General: no acute distress and alert Nutritional Appearance: not obese Orientation/consciousness: Other orientation findings ( oriented) HEENT Head: Yes atraumatic Eyes General: appearance normal, both eyes and all related structures Sclerae: sclerae normal EOM: EOMs intact bilaterally Neck Neck: Yes supple Lymphatic: no lymphadenopathy noted Resp Effort & Inspection: normal respiratory effort and no use of accessory muscles Auscultation: clear to auscultation bilaterally Cardio Rate: regular rate Rhythm: regular rhythm Heart sounds: no gallops, no murmurs and no rubs Skin General skin exam: other ( warm) Extrem General: No clubbing, No cyanosis and No edema Assessment & Plan Assessment & Plan (1) Asthma: Code(s): J45.909 - Unspecified asthma, uncomplicated Category: Medical Qualifiers: Asthma severity: moderate Asthma persistence: persistent Asthma complication type: uncomplicated Qualified Code(s): J45.40 - Moderate persistent asthma, uncomplicated Plan: Unclear severity. Will obtain full PFT. Currently controlled on albuterol MDI. Patient also has Symbicort and Combivent that she has not been using. (2) Environmental allergies: Code(s): Z91.09 - Other allergy status, other than to drugs and biological substances Category: Medical Plan: Will obtain IgE level, CBC with differential, and RAST panel for further evaluation. Currently controlled on Singulair. Orders: Orders Resp Allergy Profile Region I Today J45.40 - Moderate persistent asthma, uncomplicated PFT pulmonary function test Today J45.40 - Moderate persistent asthma, uncomplicated Coding Level of Care Code New Pt Level 4 (55929) Diagnoses Moderate persistent asthma without complication J45.40 Asthma severity: moderate Asthma persistence: persistent Asthma complication type: uncomplicated Environmental allergies Z91.09
== END 2024-10-10 13:29 | disposition home or self-care (01) ==
PROVIDERS: PCP Internal Medicine; Referring Provider Nurse Practitioner Family; Visit Provider Internal Medicine Pulmonary Disease
DX: J45.40 Moderate persistent asthma, uncomplicated (principal); Z91.09 Other allergy status, other than to drugs and biological substances
CPT/HCPCS: 99204

== ENCOUNTER 2024-10-10 12:56 | Outpatient (REF) | payer BC, SELFPAY ==
[2024-10-10 14:53] LABS: Appearance Urine Clear; Color Urine Yellow; Glucose Urine UA Negative (Negative); Leukocyte Esterase Urine Trace (Negative); Nitrite Urine Negative (Negative); UMIC TRIGGER UACC YES; Urine Blood Negative (Negative); Urine Ketones Trace mg/dL (Negative); Urine Protein Negative (Neg-Trace)
[2024-10-10 15:02] LABS: Bacteria Urine Trace (None Seen); Calcium Oxalate Crystals Urine Present; Hyaline Casts Urine 0-2 /LPF (0-2); RBC Urine 0-2 /HPF (0-2); WBC Urine 0-5 /HPF (0-5)
[2024-10-10 15:20] LABS: Glucose Fasting 108 mg/dL (60-99)
[2024-10-29 14:22] LABS: E001 - IgE Cat Dander 5.06
[2024-10-29 14:23] LABS: Class Mouse Urine Protein 0; Class White Mulberry 0; E005 - IgE Dog Dander 2.77; E072-IgE Mouse Urine <0.10; I006-IgE Cockroach, German 0.16; T070 - IgE White Mulberry <0.10
[2024-10-29 14:24] LABS: Class Maple Box Elder 0; Class Mountain Cedar 0; Class Walnut Tree 0; T001 IgE Maple/Box Elder <0.10; T006 - IgE Cedar, Mountain <0.10; T010 - IgE Walnut <0.10; T011 - IgE Maple Leaf Sycamore 0.11
[2024-10-29 14:25] LABS: Class Cottonwood 0; T014 - IgE Cottonwood <0.10
[2024-10-29 14:26] LABS: Class Alternaria alternata 0; Class Aspergillus fumigatus 0; Class Cladosporium herbarum 0; Class Penicillium crysogenum 0; D001 IgE D pteronyssinus 0.65; D002 - IgE D farinae 0.56; M001 IgE Penicillium chrysogen <0.10; M002 - IgE Cladosporium herbar <0.10; M003 - IgE Aspergillus fumigat <0.10; M006 - IgE Alternaria alternat <0.10
[2024-10-29 14:27] LABS: Class Bermuda Grass 0; G002 IgE Bermuda Grass <0.10; T007 - IgE Oak, White 2.48; T008 IgE Elm, American 0.13
[2024-10-29 14:28] LABS: Class Common Ragweed 0; Class Mugwort 0; Class Rough Pigweed 0; Class Sheep Sorrel 0; W001 - IgE Ragweed, Short <0.10; W006 - IgE Mugwort <0.10; W014 IgE Pigweed, Common <0.10; W018 IgE Sheep Sorrel <0.10
[2024-10-29 14:29] LABS: Class Cat Dander 3; Class Cockroach 0/1; Class Dermatophagoides farinae 1; Class Dog Dander 2; Class Oak 2; Class Sycamore 0/1; Class Timothy Grass 2
[2024-10-29 14:30] LABS: Class White Ash 0/1
[2024-10-29 14:31] LABS: Class Birch 2; Class Derm. pterony 1; Class Elm 0/1
== END 2024-10-10 12:57 | disposition home or self-care (01) ==
LOC: HO.LAB 12:56
PROVIDERS: PCP Internal Medicine; Referring Provider Nurse Practitioner Family; Visit Provider Internal Medicine Pulmonary Disease
DX: Z00.00 Encounter for general adult medical examination without abnormal findings (principal); J45.41 Moderate persistent asthma with (acute) exacerbation; M80.80XS Other osteoporosis with current pathological fracture, unspecified site, sequela; Z13.1 Encounter for screening for diabetes mellitus
CPT/HCPCS: 36415; 81001; 82785; 82947; 86003

== ENCOUNTER 2024-10-17 12:58 | Outpatient (REF) | payer BC, SELFPAY ==
--- NOTE | ~2024-10-17 | MM_ITS ---
EXAMINATION: DXA BONE DENSITY AXIAL HISTORY: Estrogen deficiency TECHNIQUE: [email or web address] Dual energy absorptiometry (DEXA) of the lumbar spine, total left hip, and femoral neck was performed. COMPARISON: Comparison is made with the prior examination dated 04/18/2019. FINDINGS: The bone mineral density of the lumbar spine is 0.518 with a T-score of -5.7, and a Z-score of -4.2. This represents a BMD change of -9.4% compared to the prior exam. This is statistically significant. The bone mineral density of the left total hip is 0.708 with a T-score of -2.4, and a Z-score of -1.2. This represents a BMD change of 0.0% compared to the prior exam. This is not statistically significant. The bone mineral density of the left femoral neck is 0.677 with a T-score of -2.6, and a Z-score of -1.2. This represents a BMD change of 5.1% compared to the prior exam. MM/XR DEXA axial skeleton IMPRESSION: Based on bone mineral density, and according to World Health Organization (WHO) criteria, the diagnosis is consistent with osteoporosis. All bone density values are in grams per centimeter squared (g/cm2). Statistically, 68% of repeat scans fall within 1 SD (+/- 0.010 g/cm2 for AP spine L1-L4) and 1 SD (+/- 0.012 g/cm2 for femur total) FRAX is a trademark of the [employer] [place] for Metabolic Bone Disease, a World Health Organization (WHO) Collaborating Center. Electronically signed by: Aden Mims MD 10/17/2024 02:02 PM EDT
== END 2024-10-17 12:59 | disposition home or self-care (01) ==
LOC: HO.MAMMO 12:58
PROVIDERS: PCP Internal Medicine; Visit Provider Internal Medicine
DX: Z13.820 Encounter for screening for osteoporosis (principal); Z78.0 Asymptomatic menopausal state; M80.80XS Other osteoporosis with current pathological fracture, unspecified site, sequela
CPT/HCPCS: 77080

== ENCOUNTER → 2024-10-17 13:30 | Outpatient (BNV) | payer BC, SELFPAY | PROVIDERS: PCP Internal Medicine; Visit Provider Radiology Diagnostic Radiology | DX: E28.39 Other primary ovarian failure (principal) | CPT/HCPCS: 77080 ==

== ENCOUNTER 2024-11-29 14:11 | Outpatient (AMB) | payer BC, SELFPAY ==
--- NOTE | 2024-11-29 14:24 | MHC.OFFVIS ---
Intake Visit Reasons: moderate asthma Allergies amoxicillin [AMOXICILLIN] Allergy (Unknown, Verified 11/29/24 14:25) ANAPHYLAXIS codeine [CODEINE] Allergy (Unknown, Verified 11/29/24 14:25) UNKNOWN guaifenesin [Mucinex] Allergy (Unknown, Verified 11/29/24 14:25) Unknown Iodinated Contrast Media [IV CONTRAST] Allergy (Unknown, Verified 11/29/24 14:25) ANAPHYLAXIS levalbuterol [From XOPENEX] Allergy (Unknown, Verified 11/29/24 14:25) DIFFICULTY BREATHING naproxen Allergy (Unknown, Verified 11/29/24 14:25) Unknown penicillin V Allergy (Unknown, Verified 11/29/24 14:25) anaphylaxis Penicillins [PENICILLINS] Allergy (Unknown, Verified 11/29/24 14:25) ANAPHYLAXIS lidocaine Adverse Reaction (Unknown, Verified 11/29/24 14:25) Irritated, itchy Codeine Phosphate Allergy (Unknown, Uncoded 11/29/24 14:25) Unknown ct dye Allergy (Unknown, Uncoded 11/29/24 14:25) anaphylaxis IV Contrast Allergy (Unknown, Uncoded 11/29/24 14:25) Unknown seasonal/environmental Allergy (Unknown, Uncoded 11/29/24 14:25) Unknown tomatoes,OJ,vinegar Allergy (Unknown, Uncoded 11/29/24 14:25) Unknown HPI HPI moderate asthma: Details: 64-year-old lady, former minimal smoker in high school, with longstanding asthma previously with multiple exacerbations while working for [employer] and remission for the most recent 2 years after returning from there, who had recent exacerbation lasting approximately months and a half over the last winter. Now using only albuterol MDI twice a day, previously on Combivent and Symbicort. Patient also previously use Singulair to control her allergy symptoms. Patient denies having recent pulmonary function or allergy testing. She does have history of COPD in her mother. She was employed without exposure to industrial dusts. Patient does have dogs as pets. Patient has not started on inhaled corticosteroids as she stating that her symptoms are well controlled on as needed albuterol MDI. She did finish immunologic testing that shows significant allergic component to underlying symptoms. Patient was not able to complete her pulmonary function test yet. [facility] Medical History Infection of skin due to methicillin resistant Staphylococcus aureus (MRSA) Overweight (BMI 25.0-29.9) Moderate persistent asthma, uncomplicated Renal calculus, right Osteoporosis Compression fracture of T12 vertebra Anxiety Asthma Surgical History H/O right knee surgery Hx of tonsillectomy H/O eye surgery Family History Father Family history unknown Mother Family history unknown Social History Household Members Other:: fiance Housing: Apartment Alcohol intake: current Alcohol intake frequency: holidays/special occasions only Patient Tobacco Use Status: Never used Tobacco e-Cigarette/Vaping Use: Never Used Second Hand Smoke Exposure: No service: No Current occupational status: employed 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 Sexual orientation: Straight/Heterosexual Gender identity: Female Cognitive needs: No Hearing needs: No Vision needs: Yes Female Reproductive History Menstrual Age of Menarche: 12 Review of Systems Const Denies daytime sleepiness, Denies excessive sweating, Denies fatigue, Denies fever(s), Denies lethargy, Denies malaise, Denies night sweats, Denies snoring and Denies weight loss Eyes Denies blurry vision and Denies itchy eyes ENT Denies nasal congestion, Denies post nasal drip, Denies sinus pain, Denies sinus pressure and Denies other ( Thrush) Card Denies chest pain, Denies pedal edema, Denies dyspnea, Denies orthopnea and Denies paroxysmal nocturnal dyspnea Resp Denies cough, Denies hemoptysis, Denies excessive phlegm production, Denies dyspnea, Denies snoring and Denies wheezing GI Denies abdominal pain and Denies heartburn Musc Denies myalgias, Denies arthralgias and Denies joint swelling Skin/Breast Denies rash Neuro Denies memory loss and Denies seizure-like activity Psych Denies abnormal sleep pattern, Denies anxiety and Denies memory loss Endo Denies excessive sweating, Denies fatigue and Denies heat intolerance Eric/Lymph Denies easy bruising Aller/Immun Denies itchy eyes, Denies seasonal rhinorrhea and Denies wheezing Physical Exam Const General: no acute distress and alert Nutritional Appearance: not obese Orientation/consciousness: Other orientation findings ( oriented) HEENT Head: Yes atraumatic Eyes General: appearance normal, both eyes and all related structures Sclerae: sclerae normal EOM: EOMs intact bilaterally Neck Neck: Yes supple Lymphatic: no lymphadenopathy noted Resp Effort & Inspection: normal respiratory effort and no use of accessory muscles Auscultation: clear to auscultation bilaterally Cardio Rate: regular rate Rhythm: regular rhythm Heart sounds: no gallops, no murmurs and no rubs Skin General skin exam: other ( warm) Extrem General: No clubbing, No cyanosis and No edema Assessment & Plan Assessment & Plan (1) Asthma: Code(s): J45.909 - Unspecified asthma, uncomplicated Category: Medical Qualifiers: Asthma severity: moderate Asthma persistence: persistent Asthma complication type: uncomplicated Qualified Code(s): J45.40 - Moderate persistent asthma, uncomplicated Plan: Pulmonary function test is pending. Symptoms at this time are well controlled on albuterol MDI. Continue current regimen. (2) Environmental allergies: Code(s): Z91.09 - Other allergy status, other than to drugs and biological substances Category: Medical Plan: Results of immunologic testing reviewed, underlying significant allergic component to her symptoms. At this time controlled on Singulair. Continue current regimen. Coding Level of Care Code Est Pt Level 4 (78453) Diagnoses Moderate persistent asthma without complication J45.40 Asthma severity: moderate Asthma persistence: persistent Asthma complication type: uncomplicated Environmental allergies Z91.09
== END 2024-11-29 14:41 | disposition home or self-care (01) ==
LOC: HO.HPS 14:12
PROVIDERS: PCP Internal Medicine; Visit Provider Internal Medicine Pulmonary Disease
DX: J45.40 Moderate persistent asthma, uncomplicated (principal); Z91.09 Other allergy status, other than to drugs and biological substances
CPT/HCPCS: 99214

== ENCOUNTER 2024-12-09 14:26 | Outpatient (AMB) | payer BC, SELFPAY ==
[2024-12-09 14:32] VITALS: BP 124/70; PULSE 73; O2SAT 98; BMI 26.9
--- NOTE | 2024-12-09 14:32 | A.OFFPC_ITS ---
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 Accompanied by: Self / Same As Patient Allergies amoxicillin [AMOXICILLIN] Allergy (Unknown, Verified 12/09/24 15:08) ANAPHYLAXIS codeine [CODEINE] Allergy (Unknown, Verified 12/09/24 15:08) UNKNOWN guaifenesin [Mucinex] Allergy (Unknown, Verified 12/09/24 15:08) Unknown Iodinated Contrast Media [IV CONTRAST] Allergy (Unknown, Verified 12/09/24 15:08) ANAPHYLAXIS levalbuterol [From XOPENEX] Allergy (Unknown, Verified 12/09/24 15:08) DIFFICULTY BREATHING naproxen Allergy (Unknown, Verified 12/09/24 15:08) Unknown penicillin V Allergy (Unknown, Verified 12/09/24 15:08) anaphylaxis Penicillins [PENICILLINS] Allergy (Unknown, Verified 12/09/24 15:08) ANAPHYLAXIS lidocaine Adverse Reaction (Unknown, Verified 12/09/24 15:08) Irritated, itchy Codeine Phosphate Allergy (Unknown, Uncoded 12/09/24 15:08) Unknown ct dye Allergy (Unknown, Uncoded 12/09/24 15:08) anaphylaxis IV Contrast Allergy (Unknown, Uncoded 12/09/24 15:08) Unknown seasonal/environmental Allergy (Unknown, Uncoded 12/09/24 15:08) Unknown tomatoes,OJ,vinegar Allergy (Unknown, Uncoded 12/09/24 15:08) Unknown Medication List - Last Reconciled 12/09/24 by Tre Maldonado MD albuterol sulfate 90 mcg/actuation (Ventolin HFA) 2 puffs inhalation Q6H PRN 30 days budesonide-formoterol 160-4.5 mcg/actuation (Symbicort) 1 puff inhalation BID PRN ipratropium-albuterol 20-100 mcg/actuation (Combivent Respimat) 1 puff inhalation QID PRN montelukast 10 mg PO DAILY 90 days mupirocin 2% 1 appl topical BID 14 days [NEBULIZER with all accessories As directed] prednisolone acetate 1% 1 drp ophthalmic (eye) QID rosuvastatin 5 mg PO DAILY sertraline 50 mg PO DAILY 30 days Tobacco use date assessed: 12/09/24 Fall risk assessment: No Falls in past year Last assessed Fall Risk: 12/09/24 Dental Screening Dental Screen Date: 12/09/24 Did you have a dental visit in the last 12 months?: No Did you have a dental problem in the last 6 months where you did not have access to dental care?: No Was dental information given to patient?: No HPI Asthma HPI0 Details Patient comes in today for her follow up visit States that she lanced an abscess/lesion on her left forehead on her own a couple of weeks ago Thinks that the lesion is now healing up slowly but she still feels a 'bump' om her forehead States that she frequently gets bit by insects and mosquitoes during the spring/summer months and these often turn into an abscess or get infected and she would like to get some Rx for either an oral Abx or an Abx cream/ointment in preparation for this She is also now following up [place] [facility] [place] issues - states that Dr. Peters thinks that her issues are mostly due to asthma and/or allergies and that she does not appear to have COPD She is currently being sent for some additional testing for these issues She denies any headaches or dizziness lately Denies any chest pains No nausea/vomiting, no abdominal pain No change in bowel habits noted She had her follow up labs done a couple of months ago - to discuss her results [facility] Medical History (Updated 12/09/24 @ 15:47 by Tre Maldonado MD) Mixed hyperlipidemia Infection of skin due to methicillin resistant Staphylococcus aureus (MRSA) Overweight (BMI 25.0-29.9) Moderate persistent asthma, uncomplicated Renal calculus, right Osteoporosis Compression fracture of T12 vertebra Anxiety Asthma Surgical History H/O right knee surgery Hx of tonsillectomy H/O eye surgery Family History Father Family history unknown Mother Family history unknown Social History Household Members Other:: fiance Housing: Apartment Alcohol intake: current Alcohol intake frequency: holidays/special occasions only Patient Tobacco Use Status: Never used Tobacco e-Cigarette/Vaping Use: Never Used Second Hand Smoke Exposure: No service: No Current occupational status: employed 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 1. Little interest or pleasure in doing things: not at all 2. Feeling down, depressed, or hopeless: not at all 3. Trouble falling or staying asleep, or sleeping too much: not at all 4. Feeling tired or having little energy: not at all 5. Poor appetite or overeating: not at all 6. Feeling bad about yourself - or that you are a failure or have let yourself or your family down: not at all 7. Trouble concentrating on things, such as reading the newspaper or watching television: not at all 8. Moving or speaking so slowly that other people could have noticed. Or the opposite - being so fidgety or restless that you have been moving around a lot more than usual: not at all 9. Thoughts that you would be better off or of hurting yourself in some way: not at all Total score: 0 Depression Screening Interpretation: Negative Depression Screening Done: Yes 98759 - PHQ-9 Billing: Yes Source: Developed by Drs. Aden Sargent, Raissa Sam, Oli Garcia and colleagues, with an educational guillermo from [employer]. Thrive Questionnaire Date Thrive assessed: 12/09/24 I am a: Patient What is your living situation today?: I have a steady place to live Within the past 12 months, did the food you bought not last and you didn't have the money to get more?: Often true Within the past 12 months, did you worry whether your food would run out before you got money to buy more?: Often true Do you have trouble paying for medicines?: No Do you have trouble getting transportation to medical appointments?: No Do you have trouble paying your heating and electricity bill?: No Do you have trouble taking care of your child, family member or friend?: No Do you have trouble with day-to-day activities such as bathing, preparing meals, shopping, managing finances, etc.?: No Are you currently unemployed and looking for a job?: No Are you interested in more education?: No Please select the resources that you would like help with: None Currently or been in a relationship where the following occur: I choose not to answer THRIVE Score: 2 AUDIT C Alcohol Use Questionnaire (AUDIT-C) 1. How often do you have a drink containing alcohol?: Monthly or less 2. How many drinks containing alcohol do you have on a typical day when you are drinking?: 1 or 2 3. How often do you have six or more drinks on one occasion?: Never Total Score: 1 Score Reviewed/Action Taken: Yes PALOMA-7 AMB Questionnaire PALOMA-7 Date PALOMA - 7 assessed: 12/09/24 Feeling nervous, anxious, or on edge: 0 = Not at all Not being able to stop or control worryin = Not at all Worrying too much about different things: 0 = Not at all Trouble relaxin = Not at all Being so restless that it is hard to sit still: 0 = Not at all Becoming easily annoyed or irritable: 0 = Not at all Feeling afraid as if something awful might happen: 0 = Not at all Total PALOMA-7 score (0-4 normal; 5-9 mild; 10-14 moderate; 15-21 severe): 0 Source: Developed by Drs. Aden Sargent, Raissa Sam, Oli Garcia and colleagues, with an educational guillermo from [employer]. Review of Systems Const Denies chills, Reports fatigue, Denies fever(s) and Denies headache(s) ENT Denies dysphagia, Denies dizziness, Denies otalgia, Denies headache(s), Denies neck pain, Denies odynophagia and Denies sore throat Card Denies chest pain, Denies irregular heart rhythm, Denies palpitations and Reports dyspnea on exertion (mild) Resp Denies chest congestion, Reports cough (occasional - non-productive), Denies hemoptysis, Reports dyspnea on exertion (mild) and Denies wheezing GI Denies abdominal pain, Denies constipation, Denies dysphagia, Denies heartburn, Denies diarrhea, Denies nausea, Denies odynophagia and Denies vomiting Denies difficulty voiding, Denies nocturia, Denies dysuria and Denies urinary urgency Musc Denies back pain and Denies neck pain Skin/Breast Reports as per HPI and Denies rash Neuro Denies dizziness and Denies headache(s) Endo Reports fatigue and Denies palpitations Aller/Immun Denies wheezing Physical exam (Primary Care) Vital Signs: Last Vital Signs Pulse 73 12/09/24 14:32 BP 124/70 12/09/24 14:32 Pulse Ox 98 12/09/24 14:32 Oxygen Delivery Method Room Air 12/09/24 14:32 BMI result Body Mass Index 26.9 Tobacco/Smoking Status: Tobacco use Status Tobacco use date assessed 12/09/24 12/09/24 14:34 Patient Tobacco Use Status Never used Tobacco 12/09/24 14:34 e-Cigarette/Vaping Use Never Used 12/09/24 14:34 PHQ-9: PHQ-9 Score PHQ-9: Total score 0 12/09/24 15:09 Depression Screening Interpretation: Negative Thrive Assessment: Date of Thrive Assessment Date Thrive assessed 12/09/24 12/09/24 14:34 Currently or been in a relationship where the following occur: I choose not to answer Const General: no acute distress and alert HENMT Ears: TM's normal bilaterally and EAC's normal Throat: Yes posterior oropharynx normal and Yes tonsils normal Neck Neck: Yes supple and No lymphadenopathy Thyroid: Thyroid normal Resp Auscultation: clear to auscultation bilaterally, no crackles, no rales, no wheezes and diminished lung sounds (slightly) bilateral Cardio Rate: regular rate Rhythm: regular rhythm Heart sounds: no murmurs GI Palpation (GI): Soft to palpation and nontender Auscultation: normal bowel sounds General: Yes no CVA tenderness Back/Spine/Pelvis Back: no CVA tenderness Thoracic/Lumbar Spine: No lumbar spinal tenderness Skin Rashes: no rashes Extrem General: Yes no clubbing, cyanosis or edema Results Reviewed Results Reviewed: Laboratory Tests 03/29/19 10/08/24 10/10/24 10:30 12:02 13:44 WBC 7.8 Hgb 13.7 Hct 41.1 Plt Count 247 Sodium 140 Potassium 3.8 Creatinine 0.69 Estimated GFR > 60 Fasting Glucose Calcium 9.4 AST 31 ALT 40 H Triglycerides 149 229 H Cholesterol 291 299 H LDL Cholesterol, Calc 198 201 H HDL Cholesterol 64 53 25-OH Vitamin D Total 63.1 TSH 1.35 Ur Specific [place] 1.020 Urine Protein Negative Urine Glucose (UA) Negative Urine Blood Negative Urine Nitrite Negative Ur Leukocyte Esterase Trace H 10/10/24 13:49 WBC Hgb Hct Plt Count Sodium Potassium Creatinine Estimated GFR Fasting Glucose 108 H Calcium AST ALT Triglycerides Cholesterol LDL Cholesterol, Calc HDL Cholesterol 25-OH Vitamin D Total TSH Ur Specific [place] Urine Protein Urine Glucose (UA) Urine Blood Urine Nitrite Ur Leukocyte Esterase Coding Level of Care Code Est Pt Level 4 (01456) Complex EM visit Add On G2211 Diagnoses Moderate persistent asthma, uncomplicated J45.40 Mixed hyperlipidemia E78.2 Other osteoporosis with current pathological fracture, sequela M80.80XS Osteoporosis type: other Presence of current pathological fracture: with current pathological fracture Encounter type: sequela Compression fracture of T12 vertebra, sequela S22.080S Encounter type: sequela Renal calculus, right N20.0 Anxiety F41.9 Additional Codes PHQ-9 - 90734 - PHQ-9 Billing: Yes ([id number]) Assessment & Plan Assessment & Plan (1) Moderate persistent asthma, uncomplicated: Code(s): J45.40 - Moderate persistent asthma, uncomplicated Category: Medical Plan: Continue Symbicort 160-4.5 mcg 1 inhalation BID, Combivent Respimat 20-100 mcg 1 inhalation QID, Montelukast 10 mg QD and Albuterol HFA 1 to 2 inhalations Q [address] that [address] Peters is working up patient for further for allergies, which he thinks are triggering patient's asthma Follow up with pulmonary as scheduled (2) Mixed hyperlipidemia: Code(s): E78.2 - Mixed hyperlipidemia Category: Medical Plan: Results of her labs done a couple of months ago reviewed and discussed with patient - she is advised that her cholesterol numbers are elevated (total cholesterol is at 299 mg/dl and LDL cholesterol is at 201 mg/dl), and they are higher than when they were previously checked in 2019 Reinforced low cholesterol diet Patient was started on Rosuvastatin 5 mg QD back in [facility] 2024 but she now states that she never picked up the medication Will resend a new Rx for Rosuvastatin 5 mg QD to her local pharmacy and she is instructed to start taking this LINDY Will recheck her labs and fasting lipids in 4 months for follow up (3) Osteoporosis: Code(s): M81.0 - Age-related osteoporosis without current pathological fracture Category: Medical Qualifiers: Osteoporosis type: other Presence of current pathological fracture: with current pathological fracture Encounter type: sequela Qualified Code(s): M80.80XS - Other osteoporosis with current pathological fracture, unspecified site, sequela Plan: Her BMD done back on 04/18/2019 revealed (+) significant osteoporosis with a lowest T-score value of -4.9 Patient was referred to endocrinology back in 2018 for further evaluation and management of her osteoporosis - states that she was tried on some unrecalled medication which she could not tolerate She was seen by Dr. Davis back in 2021 and was started on Evenity - plan was to take Evenity x 1 year then switch her back to Alendronate but patient has not followed up with Dr. Davis since and is currently no longer on any Rx for her osteoporosis She has been previously advised early last year (2023) to reach out to Dr. Davis's office to schedule a follow up appointment LINDY to help address her osteoporosis but she does not appear to have done so yet She was sent for a repeat bone density to see how she is now compared to her previous BMD - repeat BMD done on 10/17/2024 revealed (+) osteoporosis and her BMD in her lumbar spine is worse than previous but slightly better in her left femoral neck Continue daily oral Calcium and Vitamin D supplements and reinforced fall precautions Will try referring her back to endocrinology for follow up and management (4) Compression fracture of T12 vertebra: Code(s): S22.080A - Wedge compression fracture of T11-T12 vertebra, initial encounter for closed fracture Category: Medical Qualifiers: Encounter type: sequela Qualified Code(s): S22.080S - Wedge compression fracture of T11-T12 vertebra, sequela Plan: Chest CT done in 01/2021 incidentally revealed (+) T12 compression fracture - this was most likely due to her osteoporosis as patient denies any injury or falls that could have contributed to this States that her back pains have been mostly manageable lately Continue Lidocaine patches QD PRN Reinforced fall precautions (5) Renal calculus, right: Code(s): N20.0 - Calculus of kidney Category: Medical Plan: Chest CT done back in 01/2021 also revealed incidentally the presence of some small right renal stones Patient is currently asymptomatic from a urology standpoint Follow-up with Urology as scheduled (6) Anxiety: Code(s): F41.9 - Anxiety disorder, unspecified Category: Medical Plan: Continue Sertraline 50 mg QD Plan For her recurrent skin infections, will send in Rx for Mupirocin ointment Follow up in 4 months Orders: Orders Lipid Panel 4 Months E78.00 - Pure hypercholesterolemia, unspecified Complete Blood Count Auto Diff 4 Months D64.9 - Anemia, unspecified Comprehensive [place]. Panel Fast 4 Months E78.00 - Pure hypercholesterolemia, unspecified Hemoglobin A1c 4 Months E11.9 - Type 2 diabetes mellitus without complications TSH reflex Free T4 4 Months E78.00 - Pure hypercholesterolemia, unspecified UA CC w/rflx Micro + Cult 4 Months R30.0 - Dysuria Vitamin D 25-OH Total 4 Months E55.9 - Vitamin D deficiency, unspecified Referrals Endocrinology Referral M80.80XS - Other osteoporosis with current pathological fracture, unspecified site, sequela Medications: New mupirocin 2% 1 appl topical TID 22 grams 3RF Refilled rosuvastatin 5 mg PO DAILY 90 tabs 1RF E78.00 - Pure hypercholesterolemia, unspecified
== END 2024-12-09 15:21 | disposition home or self-care (01) ==
LOC: HO.HMCH 14:27
PROVIDERS: PCP Internal Medicine; Visit Provider Internal Medicine
DX: J45.40 Moderate persistent asthma, uncomplicated (principal); E78.2 Mixed hyperlipidemia; M80.80XS Other osteoporosis with current pathological fracture, unspecified site, sequela; S22.080S Wedge compression fracture of T11-T12 vertebra, sequela; N20.0 Calculus of kidney; F41.9 Anxiety disorder, unspecified

== ENCOUNTER → 2024-12-09 14:26 | Outpatient (BNVA) | payer BC, SELFPAY | PROVIDERS: PCP Internal Medicine; Visit Provider Internal Medicine | DX: J45.40 Moderate persistent asthma, uncomplicated (principal); E78.2 Mixed hyperlipidemia; M80.80XS Other osteoporosis with current pathological fracture, unspecified site, sequela; S22.080S Wedge compression fracture of T11-T12 vertebra, sequela; N20.0 Calculus of kidney; F41.9 Anxiety disorder, unspecified; Z79.899 Other long term (current) drug therapy | CPT/HCPCS: 96127 ==

== ENCOUNTER 2024-12-19 13:45 | Outpatient (AMB) | payer BC, SELFPAY ==
[2024-12-19 13:50] VITALS: BP 132/72; PULSE 67; O2SAT 97; BMI 26.7
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
== END 2024-12-19 14:15 | disposition home or self-care (01) ==
LOC: HO.ENCR 13:45
PROVIDERS: PCP Internal Medicine; Visit Provider Internal Medicine Endocrinology, Diabetes & Metabolism
DX: M80.80XS Other osteoporosis with current pathological fracture, unspecified site, sequela (principal)
CPT/HCPCS: 99213

== ENCOUNTER 2025-04-22 10:55 | Outpatient (AMB) | payer BC, SELFPAY ==
--- NOTE | 2025-04-22 11:15 | AM.OFFVISNUR ---
Intake Visit Reasons: Evenity #1 Allergies amoxicillin (AMOXICILLIN) Allergy (Unknown, Verified 12/19/24 13:51) ANAPHYLAXIS codeine (CODEINE) Allergy (Unknown, Verified 12/19/24 13:51) UNKNOWN guaifenesin (Mucinex) Allergy (Unknown, Verified 12/19/24 13:51) Unknown Iodinated Contrast Media (IV CONTRAST) Allergy (Unknown, Verified 12/19/24 13:51) ANAPHYLAXIS levalbuterol (From XOPENEX) Allergy (Unknown, Verified 12/19/24 13:51) DIFFICULTY BREATHING naproxen Allergy (Unknown, Verified 12/19/24 13:51) Unknown penicillin V Allergy (Unknown, Verified 12/19/24 13:51) anaphylaxis Penicillins (PENICILLINS) Allergy (Unknown, Verified 12/19/24 13:51) ANAPHYLAXIS lidocaine Adverse Reaction (Unknown, Verified 12/19/24 13:51) Irritated, itchy Codeine Phosphate Allergy (Unknown, Uncoded 12/19/24 13:51) Unknown ct dye Allergy (Unknown, Uncoded 12/19/24 13:51) anaphylaxis IV Contrast Allergy (Unknown, Uncoded 12/19/24 13:51) Unknown seasonal/environmental Allergy (Unknown, Uncoded 12/19/24 13:51) Unknown tomatoes,OJ,vinegar Allergy (Unknown, Uncoded 12/19/24 13:51) Unknown Office Meds romosozumab-aqqg 210 mg/2.34 mL(105 mg/1.17 mL x2)subcutaneous syringe Performing Provider: Aden Davis MD Performing Location: [facility] [place] [facility] Administered by: Marli Mendieta RN on 04/22/25 11:15 Dose Route Admin Location Dispensed Lot Number Expiration Date [facility] Handle Bender 210 mg subcut bilateral upper arms 2.34 mL [id number] 07/06/27 15750-863-14 [employer] Total Dispensed Waste 2.34 mL 0 % Comments: Pt tolerated injection well. Pt scheduled in 4 weeks for next appt. Pt stayed for 15 mins following injection. No immediate adverse reactions reported. Pt advised to continue to take calcium and vitamin D while on this medication. No further questions at this time. Assessment & Plan Assessment & Plan Orders: Orders AMB Romosozumab Injection Patient Supplied Today M80.80XS - Other osteoporosis with current pathological fracture, unspecified site, sequela Coding
== END 2025-04-22 11:26 | disposition home or self-care (01) ==
LOC: HO.ENCR 10:55
PROVIDERS: PCP Internal Medicine; Visit Provider Internal Medicine Endocrinology, Diabetes & Metabolism
DX: M80.80XS Other osteoporosis with current pathological fracture, unspecified site, sequela (principal)

== ENCOUNTER → 2025-04-22 10:55 | Outpatient (BNVA) | payer BC, SELFPAY | PROVIDERS: PCP Internal Medicine; Visit Provider Internal Medicine Endocrinology, Diabetes & Metabolism | DX: M80.80XS Other osteoporosis with current pathological fracture, unspecified site, sequela (principal) | CPT/HCPCS: 96372; J3111 ==

== ENCOUNTER 2025-04-28 10:26 | Outpatient (AMB) | payer BC, SELFPAY ==
[2025-04-28 10:29] VITALS: BP 136/78; PULSE 63; TEMP 36.3; O2SAT 98; BMI 27.1
--- NOTE | 2025-04-28 10:29 | A.OFFPC_ITS ---
Vital Signs 04/28/25 10:29 Height 5 ft 1 in Weight 143 lb 4 oz BMI 27.1 BP 136/78 Blood Pressure Location Lt brachial Position Sitting Pulse 63 Pulse Source Pulse Oximeter Temp 97.3 F Temp Source Temporal Artery Scan Pulse Oximetry (%) 98 Oxygen Delivery Method Room Air Intake Visit Reasons: Pre Op Lt eye cataract 05/09 [facility] Allergies amoxicillin (AMOXICILLIN) Allergy (Unknown, Verified 04/28/25 10:40) ANAPHYLAXIS codeine (CODEINE) Allergy (Unknown, Verified 04/28/25 10:40) UNKNOWN guaifenesin (Mucinex) Allergy (Unknown, Verified 04/28/25 10:40) Unknown Iodinated Contrast Media (IV CONTRAST) Allergy (Unknown, Verified 04/28/25 10:40) ANAPHYLAXIS levalbuterol (From XOPENEX) Allergy (Unknown, Verified 04/28/25 10:40) DIFFICULTY BREATHING naproxen Allergy (Unknown, Verified 04/28/25 10:40) Unknown penicillin V Allergy (Unknown, Verified 04/28/25 10:40) anaphylaxis Penicillins (PENICILLINS) Allergy (Unknown, Verified 04/28/25 10:40) ANAPHYLAXIS lidocaine Adverse Reaction (Unknown, Verified 04/28/25 10:40) Irritated, itchy Codeine Phosphate Allergy (Unknown, Uncoded 04/28/25 10:40) Unknown ct dye Allergy (Unknown, Uncoded 04/28/25 10:40) anaphylaxis IV Contrast Allergy (Unknown, Uncoded 04/28/25 10:40) Unknown seasonal/environmental Allergy (Unknown, Uncoded 04/28/25 10:40) Unknown tomatoes,OJ,vinegar Allergy (Unknown, Uncoded 04/28/25 10:40) Unknown Medication List - Last Reconciled 04/28/25 by KADEN Myers albuterol sulfate 90 mcg/actuation (Ventolin HFA) 2 puffs inhalation Q6H PRN 30 days budesonide-formoterol 160-4.5 mcg/actuation (Symbicort) 1 puff inhalation BID PRN ipratropium-albuterol 20-100 mcg/actuation (Combivent Respimat) 1 puff inhalation QID PRN montelukast 10 mg PO DAILY 90 days mupirocin 2% 1 appl topical BID 14 days mupirocin 2% 1 appl topical TID [NEBULIZER with all accessories As directed] romosozumab-aqqg (Evenity) 210 mg (2.34 mL) subcut .qmo rosuvastatin 5 mg PO DAILY Tobacco use date assessed: 04/28/25 Fall risk assessment: No Falls in past year Last assessed Fall Risk: 04/28/25 Dental Screening Dental Screen Date: 04/28/25 Did you have a dental visit in the last 12 months?: No Did you have a dental problem in the last 6 months where you did not have access to dental care?: No Was dental information given to patient?: Patient has dentist HPI Pre Op Lt eye cataract 05/09 [facility] HPI Details The patient is a 64-year-old male presenting for preop clearance. Patient of Dr. Maldonado, was last seen in office on 12/09/2024 The patient reports longstanding cataracts in both eyes. She reports some blurriness and difficult to seeing at times. She is scheduled to have left eye cataract surgery on May 09 2025. Surgeon/Location: Dr. Yahir Gamez at the [facility], [place], [place] Anesthesa: Reports multiple previous surgeries without any issues to anesthesia. The patient denies any post operative hypothermia or clotting disorder. She is not on any blood thinners. Significant past medical history is asthma, osteoporosis, anxiety, compression fractures Patient denies chest pain, shortness of breath, heart palpitation shortness or dizziness Denies abdominal pain or any change in bowel habits Patient already had preordered labs for chronic conditions that she has not completed as yet. Encouraged the patient to go and get these done, an EKG was added as part of the preop clearance. [facility] Medical History Mixed hyperlipidemia Infection of skin due to methicillin resistant Staphylococcus aureus (MRSA) Overweight (BMI 25.0-29.9) Moderate persistent asthma, uncomplicated Renal calculus, right Osteoporosis Compression fracture of T12 vertebra Anxiety Asthma Surgical History H/O right knee surgery Hx of tonsillectomy H/O eye surgery Family History Father Family history unknown Mother Family history unknown Social History Household Members Other:: fiance Housing: Apartment Alcohol intake: current Alcohol intake frequency: holidays/special occasions only Patient Tobacco Use Status: Never used Tobacco e-Cigarette/Vaping Use: Never Used Second Hand Smoke Exposure: No service: No Current occupational status: employed 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 1. Little interest or pleasure in doing things: not at all 2. Feeling down, depressed, or hopeless: not at all 3. Trouble falling or staying asleep, or sleeping too much: not at all 4. Feeling tired or having little energy: not at all 5. Poor appetite or overeating: not at all 6. Feeling bad about yourself - or that you are a failure or have let yourself or your family down: not at all 7. Trouble concentrating on things, such as reading the newspaper or watching television: not at all 8. Moving or speaking so slowly that other people could have noticed. Or the opposite - being so fidgety or restless that you have been moving around a lot more than usual: not at all 9. Thoughts that you would be better off or of hurting yourself in some way: not at all Total score: 0 Depression Screening Interpretation: Negative Depression Screening Done: Yes Source: Developed by Drs. Aden Sargent, Raissa Sam, Oli Garcia and colleagues, with an educational guillermo from [employer]. Thrive Questionnaire Date Thrive assessed: 12/09/24 I am a: Patient What is your living situation today?: I have a steady place to live Within the past 12 months, did the food you bought not last and you didn't have the money to get more?: Often true Within the past 12 months, did you worry whether your food would run out before you got money to buy more?: Often true Do you have trouble paying for medicines?: No Do you have trouble getting transportation to medical appointments?: No Do you have trouble paying your heating and electricity bill?: No Do you have trouble taking care of your child, family member or friend?: No Do you have trouble with day-to-day activities such as bathing, preparing meals, shopping, managing finances, etc.?: No Are you currently unemployed and looking for a job?: No Are you interested in more education?: No Please select the resources that you would like help with: None Currently or been in a relationship where the following occur: I choose not to answer THRIVE Score: 2 AUDIT C Alcohol Use Questionnaire (AUDIT-C) 1. How often do you have a drink containing alcohol?: Monthly or less 2. How many drinks containing alcohol do you have on a typical day when you are drinking?: 1 or 2 3. How often do you have six or more drinks on one occasion?: Never Total Score: 1 Score Reviewed/Action Taken: Yes PALOMA-7 AMB Questionnaire PALOMA-7 Date PALOMA - 7 assessed: 12/09/24 Feeling nervous, anxious, or on edge: 0 = Not at all Not being able to stop or control worryin = Not at all Worrying too much about different things: 0 = Not at all Trouble relaxin = Not at all Being so restless that it is hard to sit still: 0 = Not at all Becoming easily annoyed or irritable: 0 = Not at all Feeling afraid as if something awful might happen: 0 = Not at all Total PALOMA-7 score (0-4 normal; 5-9 mild; 10-14 moderate; 15-21 severe): 0 Source: Developed by Drs. Aden Sargent, Raissa Sam, Oli Garcia and colleagues, with an educational guillermo from [employer]. Review of Systems Const Denies headache(s) Eyes Denies loss of vision ENT Denies vertigo, Denies dizziness, Denies headache(s) and Denies sore throat Card Denies chest pain, Denies leg edema and Denies lightheadedness Resp Denies cough, Denies hemoptysis and Denies wheezing GI Denies abdominal pain, Denies melena, Denies constipation, Denies diarrhea and Denies vomiting Denies urinary frequency, Denies dysuria and Denies urinary urgency Musc Denies arthralgias, Denies joint swelling, Denies numbness and Denies tingling Neuro Denies Abnormal speech present, Denies behavioral changes, Denies vertigo, Denies dizziness, Denies headache(s), Denies loss of vision, Denies memory loss, Denies numbness and Denies tingling Psych Denies anxiety, Denies behavioral changes, Denies depression, Denies memory loss and Denies panic attacks Eric/Lymph Denies easy bleeding and Denies easy bruising Aller/Immun Denies wheezing Physical exam (Primary Care) Vital Signs: Last Vital Signs Temp 97.3 F 04/28/25 10:29 Pulse 63 04/28/25 10:29 BP 136/78 04/28/25 10:29 Pulse Ox 98 04/28/25 10:29 Oxygen Delivery Method Room Air 04/28/25 10:29 BMI result Body Mass Index 27.1 Tobacco/Smoking Status: Tobacco use Status Tobacco use date assessed 04/28/25 04/28/25 10:34 Patient Tobacco Use Status Never used Tobacco 04/28/25 10:34 e-Cigarette/Vaping Use Never Used 04/28/25 10:34 PHQ-9: PHQ-9 Score PHQ-9: Total score 0 04/28/25 10:34 Depression Screening Interpretation: Negative Thrive Assessment: Date of Thrive Assessment Date Thrive assessed 12/09/24 04/28/25 10:34 Currently or been in a relationship where the following occur: I choose not to answer Const General: healthy appearing, no acute distress, alert and awake Nutritional Appearance: well nourished Orientation/consciousness: oriented to person, oriented to place and oriented to time HENMT Ears: TM's normal bilaterally General nose exam: Normal nasal mucous membranes and turbinates present Eyes Conjunctivae: conjunctivae normal Sclerae: sclerae normal Pupils: Equal, round and reactive pupils present Neck Neck: Yes no lymphadenopathy and Yes no JVD Thyroid: Thyroid normal Carotids: no bruits Resp Effort & Inspection: normal respiratory effort and not tachypneic Auscultation: no crackles, no rales, no rhonchi and no wheezes Cardio Rate: regular rate Rhythm: regular rhythm Heart sounds: no murmurs and normal S1 and S2 GI Palpation (GI): Soft to palpation, nontender, no hepatomegaly and no splenomegaly Auscultation: normal bowel sounds Skin General skin exam: no rashes or lesions noted and dry skin Neuro General: oriented to person, oriented to place and oriented to time Cranial nerves: Yes Equal, round and reactive pupils present Speech: No Abnormal speech present Gait exam (Neuro): Normal gait present Motor exam (neuro): no tremor noted Extrem Right upper extremity: full ROM Left upper extremity: full ROM Right lower extremity: full ROM; no edema Left lower extremity: full ROM; no edema Psych Mental Status: mental status grossly normal Speech and movement: Normal speech and movement present Affect: normal affect Attitude: cooperative Thought process: Normal thought process present Coding Level of Care Code Est Pt Level 4 (26316) Diagnoses Preoperative clearance Z01.818 Compression fracture of T12 vertebra, sequela S22.080S Encounter type: sequela Overweight (BMI 25.0-29.9) E66.3 Other osteoporosis with current pathological fracture, sequela M80.80XS Osteoporosis type: other Presence of current pathological fracture: with current pathological fracture Encounter type: sequela High cholesterol E78.00 Anxiety F41.9 Environmental allergies Z91.09 Moderate persistent asthma, uncomplicated J45.40 Time Spent (min) 39 Assessment & Plan Assessment & Plan (1) Preoperative clearance: Code(s): Z01.818 - Encounter for other preprocedural examination Category: Medical Plan: Regarding preop clearance, the patient is at acceptable risk for proposed surgery and will be cleared after she completed blood work and ekg that are within acceptable ranges. Reviewed with the patient that no surgery is completely free of risk and that this examination is to assist the surgeon in reviewing informed consent. (2) Compression fracture of T12 vertebra: Code(s): S22.080A - Wedge compression fracture of T11-T12 vertebra, initial encounter for closed fracture Category: Medical Qualifiers: Encounter type: sequela Qualified Code(s): S22.080S - Wedge compression fracture of T11-T12 vertebra, sequela Plan: The had compression fractures due to her severe osteoporosis. She recently was started on Evenity injections. Reinforced weight restrictions, avoid falling/improve balance. Engage in light to moderate resistance training. (3) Overweight (BMI 25.0-29.9): Code(s): E66.3 - Overweight Category: Medical Plan: Encouraged to exercise for at least 30 minutes a day/5 days a week Healthy eating discussed. Encouraged to eat fruits/vegetables, protein- fish/baked chicken, and to avoid salty/fried foods, sweets, caffeine and carbohydrates. Encouraged to increase water intake 6-8 glasses a day (4) Osteoporosis: Code(s): M81.0 - Age-related osteoporosis without current pathological fracture Category: Medical Qualifiers: Osteoporosis type: other Presence of current pathological fracture: with current pathological fracture Encounter type: sequela Qualified Code(s): M80.80XS - Other osteoporosis with current pathological fracture, unspecified site, sequela Plan: Severe osteoporosis with the highest T-score of -5.7 in the spine She had prolonged prednisone usage due to severe asthma and had suffered a compression fracture Recently was started on Evenity injection monlthly Denies any side effects. Follow up with Endocrine as scheduled (5) High cholesterol: Code(s): E78.00 - Pure hypercholesterolemia, unspecified Category: Medical Plan: No recent blood work. Reports that she will be going to complete all her blood work today. Reinforced low-cholesterol diet and activity as tolerated We will follow up in 4 months (6) Anxiety: Code(s): F41.9 - Anxiety disorder, unspecified Category: Medical Plan: Encouraged CBT Reports that she is feeling good without on issues Denies SI/HI The patient was on sertraline 50 mg daily. Reports that she is not taking this anymore. We will continue to monitor (7) Environmental allergies: Code(s): Z91.09 - Other allergy status, other than to drugs and biological substances Category: Medical Plan: Limit exposure to allergens Air purifiers and dust filters Air conditioner in house, especially where sleeping (8) Moderate persistent asthma, uncomplicated: Code(s): J45.40 - Moderate persistent asthma, uncomplicated Category: Medical Plan: Longstanding asthma that were requiring intervention intermittently. The patient reports that she has been feeling much better. She denies shortness of breath. Reports that she has not taken her inhaler in a while. Encouraged the patient to avoid irritants and stay hydrated. She currently is on albuterol sulfate 90 mcg/actuation 2 puffs inhalation q.6 H p.r.n., Symbicort 1 puff inhalation b.i.d. p.r.n., Combivent Respimat 1 puff inhalation Q 4 p.r.n., montelukast 10 mg daily. Reports that she has not taken any of her inhalers in a while. No changes made today, we will continue to monitor Orders: Orders ECG 12 lead EKG Today Z01.818 - Encounter for other preprocedural examination
== END 2025-04-28 12:41 | disposition home or self-care (01) ==
LOC: HO.HMCH 10:27
PROVIDERS: PCP Internal Medicine
DX: Z01.818 Encounter for other preprocedural examination (principal); S22.080S Wedge compression fracture of T11-T12 vertebra, sequela; E66.3 Overweight; M80.80XS Other osteoporosis with current pathological fracture, unspecified site, sequela; E78.00 Pure hypercholesterolemia, unspecified; F41.9 Anxiety disorder, unspecified; Z91.09 Other allergy status, other than to drugs and biological substances; J45.40 Moderate persistent asthma, uncomplicated

== ENCOUNTER 2025-04-28 10:26 | Outpatient (REF) | payer BC, SELFPAY ==
--- NOTE | 2025-04-28 11:02 | ECG_ITS ---
Test Reason : PRE OP Blood Pressure : */* mmHG Vent. Rate : 53 BPM Atrial Rate : 53 BPM P-R Int : 172 ms QRS Dur : 84 ms QT Int : 464 ms P-R-T Axes : 65 30 34 degrees QTcB Int : 435 ms Sinus bradycardia Otherwise normal ECG When compared with ECG of 09-Mar-2017 20:31, No significant change was found Referred By: Lio Snyder Electronically Signed By: Lloyd Lange
[2025-04-28 11:21] LABS: MANUAL DIFF FLAG NO
[2025-04-28 11:53] LABS: Appearance Urine Clear; Glucose Urine UA Negative (Negative); PH 6.5 (5.0-9.0); Specific Gravity - Urine 1.020 (1.005-1.025)
[2025-04-28 11:56] LABS: Hematocrit 40.3 % (37.0-47.0); Hemoglobin 13.2 g/dl (12.0-16.0); Imm Gran Abs Auto 0.04 X10*3/uL (0.00-0.03); Imm Gran Pct Auto 0.5 % (0.0-0.4); Lymphocytes Absolute Auto 1.9 X10*3/uL (1.2-4.9); Mean Corpuscular HGB Conc 32.8 g/dl (31.0-35.0); Mean Corpuscular Hemoglobin 28.8 pg (27.0-33.0); Mean Corpuscular Volume 88.0 fL (80.0-98.0); NRBC Abs Auto 0.000 X10*3/uL (0.0-0.012); NRBC Pct Auto 0.0 /100WBC (0.0-0.2); Platelet Count 212 X10*3/uL (160-400); Red Blood Count 4.58 X10*6/uL (4.20-5.50); Total Hemoglobin (HGBA1C) 3548.2731 umol/L; White Blood Count 7.9 X10*3/uL (4.8-10.8)
[2025-04-28 12:36] LABS: Alanine Aminotransferase 104 U/L (0-31); Albumin Level 4.5 g/dL (3.5-5.0); Alkaline Phosphatase 111 U/L (39-117); Anion Gap 9 (12-20); Aspartate Amino Transferase 77 U/L (5-31); Blood Urea Nitrogen 13 mg/dL (9-16); Calcium 8.6 mg/dL (8.4-10.2); Carbon Dioxide 29 mmol/L (22-29); Chloride 108 mmol/L (96-108); Cholesterol 207 mg/dL (<200); Estimated Glomerular Filt Rate > 60; HDL Cholesterol 65 mg/dL (>40); Potassium 3.9 mmol/L (3.3-5.1); Sodium 142 mmol/L (135-145); Total Protein 6.9 g/dL (6.5-8.0); Triglycerides 118 mg/dL (<150)
== END 2025-04-28 10:27 | disposition home or self-care (01) ==
LOC: HO.LAB 10:26
PROVIDERS: Absent Provider Internal Medicine; PCP Internal Medicine
DX: Z01.818 Encounter for other preprocedural examination (principal); S22.080S Wedge compression fracture of T11-T12 vertebra, sequela; Z13.1 Encounter for screening for diabetes mellitus; E66.3 Overweight; M80.80XS Other osteoporosis with current pathological fracture, unspecified site, sequela; E78.00 Pure hypercholesterolemia, unspecified; F41.9 Anxiety disorder, unspecified; Z91.09 Other allergy status, other than to drugs and biological substances; J45.40 Moderate persistent asthma, uncomplicated; Z68.27 Body mass index [BMI] 27.0-27.9, adult
CPT/HCPCS: 36415; 80053; 80061; 81003; 82306; 83036; 84443; 85025; 93005; 96127

== ENCOUNTER → 2025-04-28 11:02 | Outpatient (BNV) | payer BC, SELFPAY | PROVIDERS: Absent Provider Internal Medicine; PCP Internal Medicine; Visit Provider Internal Medicine Cardiovascular Disease | DX: R00.1 Bradycardia, unspecified (principal) | CPT/HCPCS: 93010 ==

== ENCOUNTER 2025-05-20 11:21 | Outpatient (AMB) | payer BC, SELFPAY ==
--- NOTE | 2025-05-20 11:56 | AM.OFFVISNUR ---
Intake Visit Reasons: Evenity #2 Allergies amoxicillin (AMOXICILLIN) Allergy (Unknown, Verified 04/28/25 10:40) ANAPHYLAXIS codeine (CODEINE) Allergy (Unknown, Verified 04/28/25 10:40) UNKNOWN guaifenesin (Mucinex) Allergy (Unknown, Verified 04/28/25 10:40) Unknown Iodinated Contrast Media (IV CONTRAST) Allergy (Unknown, Verified 04/28/25 10:40) ANAPHYLAXIS levalbuterol (From XOPENEX) Allergy (Unknown, Verified 04/28/25 10:40) DIFFICULTY BREATHING naproxen Allergy (Unknown, Verified 04/28/25 10:40) Unknown penicillin V Allergy (Unknown, Verified 04/28/25 10:40) anaphylaxis Penicillins (PENICILLINS) Allergy (Unknown, Verified 04/28/25 10:40) ANAPHYLAXIS lidocaine Adverse Reaction (Unknown, Verified 04/28/25 10:40) Irritated, itchy Codeine Phosphate Allergy (Unknown, Uncoded 04/28/25 10:40) Unknown ct dye Allergy (Unknown, Uncoded 04/28/25 10:40) anaphylaxis IV Contrast Allergy (Unknown, Uncoded 04/28/25 10:40) Unknown seasonal/environmental Allergy (Unknown, Uncoded 04/28/25 10:40) Unknown tomatoes,OJ,vinegar Allergy (Unknown, Uncoded 04/28/25 10:40) Unknown Office Meds romosozumab-aqqg 210 mg/2.34 mL(105 mg/1.17 mL x2)subcutaneous syringe Performing Provider: Aden Davis MD Performing Location: [facility] [place] Administered by: Marli Mendieta RN on 05/20/25 11:56 Dose Route Admin Location Dispensed Lot Number Expiration Date [facility] [place] [employer] 210 mg subcut bilateral upper arms 2.34 mL [id number] 07/06/27 17413-275-45 [employer] Total Dispensed Waste 2.34 mL 0 % Comments: No adverse reactions reported from previous injection. Pt tolerated injection well. Pt scheduled in 4 weeks for next appt. No further questions at this time. Assessment & Plan Assessment & Plan Orders: Orders AMB Romosozumab Injection Patient Supplied Today M80.80XS - Other osteoporosis with current pathological fracture, unspecified site, sequela Coding
== END 2025-05-20 11:42 | disposition home or self-care (01) ==
LOC: HO.ENCR 11:22
PROVIDERS: PCP Internal Medicine; Visit Provider Internal Medicine Endocrinology, Diabetes & Metabolism
DX: M80.80XS Other osteoporosis with current pathological fracture, unspecified site, sequela (principal)

== ENCOUNTER → 2025-05-20 11:21 | Outpatient (BNVA) | payer BC, SELFPAY | PROVIDERS: PCP Internal Medicine; Visit Provider Internal Medicine Endocrinology, Diabetes & Metabolism | DX: M81.0 Age-related osteoporosis without current pathological fracture (principal) | CPT/HCPCS: 96372; J3111 ==

== ENCOUNTER 2025-07-09 13:23 | Outpatient (AMB) | payer BC, SELFPAY ==
--- NOTE | 2025-07-09 13:52 | AM.OFFVISNUR ---
Intake Visit Reasons: Evenity #3 Allergies amoxicillin (AMOXICILLIN) Allergy (Unknown, Verified 04/28/25 10:40) ANAPHYLAXIS codeine (CODEINE) Allergy (Unknown, Verified 04/28/25 10:40) UNKNOWN guaifenesin (Mucinex) Allergy (Unknown, Verified 04/28/25 10:40) Unknown Iodinated Contrast Media (IV CONTRAST) Allergy (Unknown, Verified 04/28/25 10:40) ANAPHYLAXIS levalbuterol (From XOPENEX) Allergy (Unknown, Verified 04/28/25 10:40) DIFFICULTY BREATHING naproxen Allergy (Unknown, Verified 04/28/25 10:40) Unknown penicillin V Allergy (Unknown, Verified 04/28/25 10:40) anaphylaxis Penicillins (PENICILLINS) Allergy (Unknown, Verified 04/28/25 10:40) ANAPHYLAXIS lidocaine Adverse Reaction (Unknown, Verified 04/28/25 10:40) Irritated, itchy Codeine Phosphate Allergy (Unknown, Uncoded 04/28/25 10:40) Unknown ct dye Allergy (Unknown, Uncoded 04/28/25 10:40) anaphylaxis IV Contrast Allergy (Unknown, Uncoded 04/28/25 10:40) Unknown seasonal/environmental Allergy (Unknown, Uncoded 04/28/25 10:40) Unknown tomatoes,OJ,vinegar Allergy (Unknown, Uncoded 04/28/25 10:40) Unknown Office Meds romosozumab-aqqg 210 mg/2.34 mL(105 mg/1.17 mL x2)subcutaneous syringe Performing Provider: Aden Davis MD [place] [facility] [place] Administered by: Marli Mendieta RN on 07/09/25 13:45 Dose Route Admin Location Dispensed Lot Number Expiration Date [employer] 210 mg subcut bilateral upper arms 2.34 mL [id number] 07/06/27 92282-937-54 [employer] Total Dispensed Waste 2.34 mL 0 % Comments: Pt reported some muscle aches in her legs but stated that it depends on how much activity she is doing for the day and the weather, so she isn't really sure if it is due to the Evenity. She stated she will call the office if she experiences the same things after receiving the Evenity injection today. Pt tolerated injection well. Pt scheduled in 4 weeks for next appt. No further questions at this time. Assessment & Plan Assessment & Plan Orders: Orders AMB Romosozumab Injection Patient Supplied Today M80.80XS - Other osteoporosis with current pathological fracture, unspecified site, sequela Coding
== END 2025-07-09 13:51 | disposition home or self-care (01) ==
LOC: HO.ENCR 13:24
PROVIDERS: PCP Internal Medicine; Visit Provider Internal Medicine Endocrinology, Diabetes & Metabolism
DX: M80.80XS Other osteoporosis with current pathological fracture, unspecified site, sequela (principal)

== ENCOUNTER → 2025-07-09 13:23 | Outpatient (BNVA) | payer BC, SELFPAY | PROVIDERS: PCP Internal Medicine; Visit Provider Internal Medicine Endocrinology, Diabetes & Metabolism | DX: M80.80XS Other osteoporosis with current pathological fracture, unspecified site, sequela (principal) | CPT/HCPCS: 96372; J3111 ==

== ENCOUNTER 2025-07-28 10:31 | Outpatient (AMB) | payer BC, SELFPAY ==
[2025-07-28 10:41] VITALS: BP 124/62; PULSE 61; RESP 18; O2SAT 98; BMI 27.0
--- NOTE | 2025-07-28 10:41 | MHC.PC.OV ---
Vital Signs 07/28/25 10:41 Height 5 ft 1 in Weight 143 lb BMI 27.0 BP 124/62 Blood Pressure Location Lt brachial Position Sitting Respiration 18 Pulse 61 Pulse Source Pulse Oximeter Temp Source Temporal Artery Scan Pulse Oximetry (%) 98 Oxygen Delivery Method Room Air Intake Visit Reasons: [facility] upper eyelid surgery on 08/15/25 Arc Welder Required: No Accompanied by: Self / Same As Patient Allergies amoxicillin (AMOXICILLIN) Allergy (Unknown, Verified 07/28/25 10:56) ANAPHYLAXIS codeine (CODEINE) Allergy (Unknown, Verified 07/28/25 10:56) UNKNOWN guaifenesin (Mucinex) Allergy (Unknown, Verified 07/28/25 10:56) Unknown Iodinated Contrast Media (IV CONTRAST) Allergy (Unknown, Verified 07/28/25 10:56) ANAPHYLAXIS levalbuterol (From XOPENEX) Allergy (Unknown, Verified 07/28/25 10:56) DIFFICULTY BREATHING naproxen Allergy (Unknown, Verified 07/28/25 10:56) Unknown penicillin V Allergy (Unknown, Verified 07/28/25 10:56) anaphylaxis Penicillins (PENICILLINS) Allergy (Unknown, Verified 07/28/25 10:56) ANAPHYLAXIS lidocaine Adverse Reaction (Unknown, Verified 07/28/25 10:56) Irritated, itchy Codeine Phosphate Allergy (Unknown, Uncoded 04/28/25 10:40) Unknown ct dye Allergy (Unknown, Uncoded 04/28/25 10:40) anaphylaxis IV Contrast Allergy (Unknown, Uncoded 04/28/25 10:40) Unknown seasonal/environmental Allergy (Unknown, Uncoded 04/28/25 10:40) Unknown tomatoes,OJ,vinegar Allergy (Unknown, Uncoded 04/28/25 10:40) Unknown Medication List - Last Reconciled 07/28/25 by KADEN Myers albuterol sulfate 90 mcg/actuation (Ventolin HFA) 2 puffs inhalation Q6H PRN 30 days budesonide-formoterol 160-4.5 mcg/actuation (Symbicort) 1 puff inhalation BID PRN ipratropium-albuterol 20-100 mcg/actuation (Combivent Respimat) 1 puff inhalation QID PRN montelukast 10 mg PO DAILY 90 days [NEBULIZER with all accessories As directed] romosozumab-aqqg (Evenity) 210 mg (2.34 mL) subcut .qmo rosuvastatin 5 mg PO DAILY sertraline 50 mg PO DAILY Tobacco use date assessed: 07/28/25 Fall risk assessment: No Falls in past year Last assessed Fall Risk: 07/28/25 Dental Screening Dental Screen Date: 07/28/25 Did you have a dental visit in the last 12 months?: No Did you have a dental problem in the last 6 months where you did not have access to dental care?: No Was dental information given to patient?: No HPI HPI Comments History of Present Illness Details The patient is a 64 year old female presenting for a pre-operative evaluation for upcoming bilateral eyelid surgery and to address severe back pain. She reports the onset of severe back pain after starting Evenity injections for osteoporosis. The pain, which she feels is breaking in the middle of her back, has become debilitating, limiting her ability to walk distances, sit, or stand for long periods. The patient notes that after she missed her injections for a month, she felt fine, but the pain returned upon restarting the treatment. The patient was diagnosed with severe osteoporosis, attributed to long-term steroid use for asthma, and is being treated by an delinquent tax collector assistant with Evenity injections. She has a history of a rib fracture from sneezing two years ago. Regarding the pre-operative clearance, the patient is scheduled for bilateral eyelid surgery on August 15 to address ptosis, which is more significant in the left eye. She recently underwent successful cataract surgery on both eyes with lens implantation and had no issues with the mild anesthesia used. An EKG was performed in April for her prior surgery and is considered current. Her past medical history is significant for asthma, which is now well-controlled. She also reports increased urinary frequency and a weaker bladder. Surgery: Bilateral eyelid surgery Date: August 15 2025 Surgeon/Location: Bk Abel MD [facility] The patient has a routine follow-up scheduled for August 28. She was advised to complete fasting labs the next day, which will serve for both her pre-operative clearance and her annual check-up. Social History - The patient recently from her and now performs all heavy lifting for the household, including groceries and laundry. - She lives on the second floor and reports carrying her 17-pound dog up the stairs multiple times a day. - The patient reports her son has applied to get her in-home help. - Her functional status is significantly limited by her back pain, affecting her ability to perform activities of daily living such as tying her shoes and walking long distances. Results - EKG: An EKG from April was reviewed and deemed sufficient for pre-operative clearance, so a new one was not ordered. [facility] Medical History Mixed hyperlipidemia Infection of skin due to methicillin resistant Staphylococcus aureus (MRSA) Overweight (BMI 25.0-29.9) Moderate persistent asthma, uncomplicated Renal calculus, right Osteoporosis Compression fracture of T12 vertebra Anxiety Asthma Surgical History H/O right knee surgery Hx of tonsillectomy H/O eye surgery Family History Father Family history unknown Mother Family history unknown Social History Household Members Other:: fiance Housing: Apartment Alcohol intake: current Alcohol intake frequency: holidays/special occasions only Patient Tobacco Use Status: Never used Tobacco e-Cigarette/Vaping Use: Never Used Second Hand Smoke Exposure: No service: No Current occupational status: employed 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 Depression Screening Interpretation: Negative Depression Screening Done: Yes Source: Developed by Drs. Aden Sargent, Raissa Sam, Oli Garcia and colleagues, with an educational guillermo from [employer]. Thrive Questionnaire Date Thrive assessed: 07/28/25 I am a: Patient What is your living situation today?: I have a steady place to live Within the past 12 months, did the food you bought not last and you didn't have the money to get more?: Often true Within the past 12 months, did you worry whether your food would run out before you got money to buy more?: Often true Do you have trouble paying for medicines?: No Do you have trouble getting transportation to medical appointments?: No Do you have trouble paying your heating and electricity bill?: No Do you have trouble taking care of your child, family member or friend?: No Do you have trouble with day-to-day activities such as bathing, preparing meals, shopping, managing finances, etc.?: No Are you currently unemployed and looking for a job?: No Are you interested in more education?: No Currently or been in a relationship where the following occur: I choose not to answer THRIVE Score: 2 PALOMA-7 AMB Questionnaire PALOMA-7 Date PALOMA - 7 assessed: 12/09/24 Source: Developed by Drs. Aden Sargent, Raissa Sam, Oli Garcia and colleagues, with an educational guillermo from [employer]. Review of Systems Narrative Review of Systems - General: Reports a significant decline in her functional abilities and is now very limited in her activities. - Eyes: Reports drooping of both eyelids, with the left being worse than the right. - Cardiovascular: Denies chest pain or palpitations. - Respiratory: Denies dyspnea; reports her asthma is controlled. - Gastrointestinal: Denies stomach pain or changes in bowel habits. - Genitourinary: Reports increased urinary frequency and a weaker bladder. - Musculoskeletal: Reports severe, debilitating pain in her back that feels like it's breaking in the middle. - Neurological: Denies dizziness. Const Denies headache(s) Eyes Denies loss of vision ENT Denies vertigo, Denies dizziness, Denies headache(s) and Denies sore throat Card Denies chest pain, Denies leg edema and Denies lightheadedness Resp Denies cough, Denies hemoptysis and Denies wheezing GI Denies abdominal pain, Denies melena, Denies constipation, Denies diarrhea and Denies vomiting Denies urinary frequency, Denies dysuria and Denies urinary urgency Musc Reports back pain, Denies arthralgias, Denies joint swelling, Denies numbness and Denies tingling Neuro Denies Abnormal speech present, Denies behavioral changes, Denies vertigo, Denies dizziness, Denies headache(s), Denies loss of vision, Denies memory loss, Denies numbness and Denies tingling Psych Denies anxiety, Denies behavioral changes, Denies depression, Denies memory loss and Denies panic attacks Eric/Lymph Denies easy bleeding and Denies easy bruising Aller/Immun Denies wheezing Physical exam (Primary Care) Vital Signs: Last Vital Signs Pulse 61 07/28/25 10:41 Resp 18 07/28/25 10:41 BP 124/62 07/28/25 10:41 Pulse Ox 98 07/28/25 10:41 Oxygen Delivery Method Room Air 07/28/25 10:41 BMI result Body Mass Index 27.0 Tobacco/Smoking Status: Tobacco use Status Tobacco use date assessed 07/28/25 07/28/25 10:50 Patient Tobacco Use Status Never used Tobacco 07/28/25 10:46 e-Cigarette/Vaping Use Never Used 07/28/25 10:46 Depression Screening Interpretation: Negative Thrive Assessment: Date of Thrive Assessment Date Thrive assessed 07/28/25 07/28/25 10:50 Currently or been in a relationship where the following occur: I choose not to answer Narrative Physical Exam - Respiratory: Lungs are clear to auscultation bilaterally. Const General: healthy appearing, no acute distress, alert and awake Nutritional Appearance: well nourished Orientation/consciousness: oriented to person, oriented to place and oriented to time HENMT Ears: TM's normal bilaterally General nose exam: Normal nasal mucous membranes and turbinates present Eyes Conjunctivae: conjunctivae normal Sclerae: sclerae normal Pupils: Equal, round and reactive pupils present Neck Neck: Yes no lymphadenopathy and Yes no JVD Thyroid: Thyroid normal Carotids: no bruits Resp Effort & Inspection: normal respiratory effort and not tachypneic Auscultation: no crackles, no rales, no rhonchi and no wheezes Cardio Rate: regular rate Rhythm: regular rhythm Heart sounds: no murmurs and normal S1 and S2 GI Palpation (GI): Soft to palpation, nontender, no hepatomegaly and no splenomegaly Auscultation: normal bowel sounds General: Yes no CVA tenderness Back/Spine/Pelvis Back: no CVA tenderness Thoracic/Lumbar Spine: No lumbar spinal tenderness Skin General skin exam: no rashes or lesions noted and dry skin Neuro General: oriented to person, oriented to place and oriented to time Cranial nerves: Yes Equal, round and reactive pupils present Speech: No Abnormal speech present Gait exam (Neuro): Normal gait present Motor exam (neuro): no tremor noted Extrem Right upper extremity: full ROM Left upper extremity: full ROM Right lower extremity: full ROM; no edema Left lower extremity: full ROM; no edema Psych Mental Status: mental status grossly normal Speech and movement: Normal speech and movement present Affect: normal affect Attitude: cooperative Thought process: Normal thought process present Coding Level of Care Code Est Pt Level 4 (75983) Diagnoses Preoperative clearance Z01.818 Compression fracture of T12 vertebra, sequela S22.080S Encounter type: sequela Overweight (BMI 25.0-29.9) E66.3 Other osteoporosis with current pathological fracture, sequela M80.80XS Osteoporosis type: other Presence of current pathological fracture: with current pathological fracture Encounter type: sequela High cholesterol E78.00 Anxiety F41.9 Environmental allergies Z91.09 Moderate persistent asthma, uncomplicated J45.40 Acute right-sided low back pain without sciatica M54.50 Chronicity: acute Back pain laterality: right Sciatica presence: without sciatica Time Spent (min) 36 Assessment & Plan Assessment & Plan (1) Preoperative clearance: Code(s): Z01.818 - Encounter for other preprocedural examination Category: Medical Plan: Plan: Recent EKG reviewed, re-ordered labs to reevaluated health status. Regarding preop clearance, the patient is at acceptable risk for proposed surgery and will be cleared after completing labs that are within acceptable ranges. Reviewed with the patient that no surgery is completely free of risk and that this examination is to assist the surgeon in reviewing informed consent. (2) Compression fracture of T12 vertebra: Code(s): S22.080A - Wedge compression fracture of T11-T12 vertebra, initial encounter for closed fracture Category: Medical Qualifiers: Encounter type: sequela Qualified Code(s): S22.080S - Wedge compression fracture of T11-T12 vertebra, sequela Plan: The had compression fractures due to her severe osteoporosis. She recently was started on Evenity injections. Reinforced weight restrictions, avoid falling/improve balance. Engage in light to moderate resistance training. (3) Overweight (BMI 25.0-29.9): Code(s): E66.3 - Overweight Category: Medical Plan: Encouraged to exercise for at least 30 minutes a day/5 days a week Healthy eating discussed. Encouraged to eat fruits/vegetables, protein-fish/baked chicken, and to avoid salty/fried foods, sweets, caffeine and carbohydrates. Encouraged to increase water intake 6-8 glasses a day (4) Osteoporosis: Code(s): M81.0 - Age-related osteoporosis without current pathological fracture Category: Medical Qualifiers: Osteoporosis type: other Presence of current pathological fracture: with current pathological fracture Encounter type: sequela Qualified Code(s): M80.80XS - Other osteoporosis with current pathological fracture, unspecified site, sequela Plan: Severe osteoporosis with the highest T-score of -5.7 in the spine She had prolonged prednisone usage due to severe asthma and had suffered a compression fracture Recently was started on Evenity injection monlthly Reports increased back pain, thinks that this medication is the cause, though mentioning that she has been doing more lifting since from her ; lumbar xray ordered to further evaluate. Follow up with Endocrine as scheduled (5) High cholesterol: Code(s): E78.00 - Pure hypercholesterolemia, unspecified Category: Medical Plan: No recent blood work. Reports that she will be going to complete all her blood work today. Reinforced low-cholesterol diet and activity as tolerated Will continue to monitor (6) Anxiety: Code(s): F41.9 - Anxiety disorder, unspecified Category: Medical Plan: Encouraged CBT Reports that she is feeling good without on issues Denies SI/HI The patient was on sertraline 50 mg daily. Reports that she is not taking this anymore. We will continue to monitor (7) Environmental allergies: Code(s): Z91.09 - Other allergy status, other than to drugs and biological substances Category: Medical Plan: Limit exposure to allergens Air purifiers and dust filters Air conditioner in house, especially where sleeping (8) Moderate persistent asthma, uncomplicated: Code(s): J45.40 - Moderate persistent asthma, uncomplicated Category: Medical Plan: Longstanding asthma that were requiring intervention intermittently. The patient reports that she has been feeling much better. She denies shortness of breath. Reports that she has not taken her inhaler in a while. Encouraged the patient to avoid irritants and stay hydrated. She currently is on albuterol sulfate 90 mcg/actuation 2 puffs inhalation q.6 H p.r.n., Symbicort 1 puff inhalation b.i.d. p.r.n., Combivent Respimat 1 puff inhalation Q 4 p.r.n., montelukast 10 mg daily. Reports that she has not taken any of her inhalers in a while. No changes made today, we will continue to monitor (9) Low back pain: Code(s): M54.50 - Low back pain, unspecified Category: Medical Qualifiers: Chronicity: acute Back pain laterality: right Sciatica presence: without sciatica Qualified Code(s): M54.50 - Low back pain, unspecified Plan: The patient's severe low back pain began after starting Evenity injections and is exacerbated by increased physical activity, including lifting. To further evaluate the etiology, an X-ray of the lumbar spine has been ordered. The patient was advised to discuss this symptom with her delinquent tax collector assistant at her next appointment on August 06, as it may be a side effect of her medication. The patient declined pain medication Plan Plan Patient was informed and verbally consented to the use of an ambient scribe for clinic note documentation during this visit. 1. Low Back Pain The patient's severe low back pain began after starting Evenity injections and is exacerbated by increased physical activity, including lifting. To further evaluate the etiology, an X-ray of the lumbar spine has been ordered. The patient was advised to discuss this symptom with her delinquent tax collector assistant at her next appointment on August 06, as it may be a side effect of her medication. The patient declined pain medication. 2. Osteoporosis The patient has severe osteoporosis, secondary to long-term steroid use for asthma, with a history of a fragility fracture. She is under the care of an delinquent tax collector assistant and is being treated with Evenity. It was strongly recommended that she not discontinue this medication without consulting her specialist due to her high fracture risk. 3. Pre-Operative Evaluation The patient is cleared for her scheduled bilateral eyelid surgery on August 15, pending review of lab results. Her EKG from April is sufficient for clearance. Pre-operative labs have been ordered. Discussion Notes I discussed with the patient her severe back pain. I acknowledged her concern that the Evenity injections may be the cause, especially since the pain improved when she missed a dose, but also noted that her increased physical activity and lifting could be a contributing factor. I strongly advised her to follow up with her delinquent tax collector assistant on the to discuss these symptoms as a possible side effect and cautioned her against stopping the medication on her own due to her high fracture risk. To investigate the cause of her pain, I ordered a lumbar spine X-ray. We arranged for the necessary pre-operative labs for her eyelid surgery and coordinated them with her annual fasting labs to be done together for convenience. I confirmed she is cleared for surgery pending the lab results. Patient Instructions - Please follow up with your specialist on August 06 to discuss your back pain and ask if it could be a side effect of your Evenity shots. - It is very important that you do not stop taking the Evenity medication without talking to your specialist first. - Please go to the lab tomorrow to get your blood drawn and have an X-ray of your lower back. - Do not eat or drink anything after midnight tonight before your lab tests tomorrow. - Your eyelid surgery is scheduled for August 15. - Your next follow-up appointment in this office is on August 28. Orders: Orders Complete Blood Count Auto Diff Today Z01.818 - Encounter for other preprocedural examination Comprehensive Met. Panel Today Z01.818 - Encounter for other preprocedural examination XR lumbar spine 2-3V Today M54.50 - Low back pain, unspecified, Z01.818 - Encounter for other preprocedural examination TSH reflex Free T4 Today Z01.818 - Encounter for other preprocedural examination UA CC w/rflx Micro + Cult Today Z01.818 - Encounter for other preprocedural examination Prothrombin Time INR Today Z01.818 - Encounter for other preprocedural examination
== END 2025-07-28 11:14 | disposition home or self-care (01) ==
LOC: HO.HMCH 10:32
PROVIDERS: PCP Internal Medicine
DX: Z01.818 Encounter for other preprocedural examination (principal); S22.080S Wedge compression fracture of T11-T12 vertebra, sequela; E66.3 Overweight; M80.80XS Other osteoporosis with current pathological fracture, unspecified site, sequela; E78.00 Pure hypercholesterolemia, unspecified; F41.9 Anxiety disorder, unspecified; Z91.09 Other allergy status, other than to drugs and biological substances; J45.40 Moderate persistent asthma, uncomplicated; M54.50 Low back pain, unspecified

== ENCOUNTER 2025-07-29 08:54 | Outpatient (REF) | payer BC, SELFPAY ==
--- NOTE | ~2025-07-29 | XR_ITS ---
EXAMINATION: XR LUMBAR SPINE 2-3 VIEWS HISTORY: M54.50 - Low back pain, unspecified COMPARISON: Comparison is made with the prior examination dated 03/21/2022. FINDINGS: AP, lateral, and coned down views of the lumbar spine are submitted. The bones are osteopenic. Five nonrib-bearing lumbar vertebral bodies are identified, maintaining normal height and alignment without evidence of fracture or spondylolisthesis. There is mild disc space narrowing at L5-S1. The posterior elements are intact. The visualized paraspinal soft tissues are unremarkable. XR/XR lumbar spine 2-3V IMPRESSION: Mild disc space narrowing at L5-S1. Electronically signed by: Aden Mims MD 07/29/2025 10:11 AM [facility]
[2025-07-29 09:14] LABS: MANUAL DIFF FLAG NO
[2025-07-29 09:49] LABS: Hematocrit 40.7 % (37.0-47.0); Hemoglobin 13.4 g/dl (12.0-16.0); Imm Gran Abs Auto 0.02 X10*3/uL (0.00-0.03); Imm Gran Pct Auto 0.2 % (0.0-0.4); Lymphocytes Absolute Auto 2.4 X10*3/uL (1.2-4.9); Mean Corpuscular HGB Conc 32.9 g/dl (31.0-35.0); Mean Corpuscular Hemoglobin 28.8 pg (27.0-33.0); Mean Corpuscular Volume 87.3 fL (80.0-98.0); NRBC Abs Auto 0.000 X10*3/uL (0.0-0.012); NRBC Pct Auto 0.0 /100WBC (0.0-0.2); Platelet Count 228 X10*3/uL (160-400); Red Blood Count 4.66 X10*6/uL (4.20-5.50); White Blood Count 8.5 X10*3/uL (4.8-10.8)
[2025-07-29 09:54] LABS: INTERNATIONAL NORM RATIO 0.9 (0.9-1.1); Prothrombin Time 11.3 SEC (11.2-13.5)
[2025-07-29 10:12] LABS: Appearance Urine Clear; Glucose Urine UA Negative (Negative); PH 6.0 (5.0-9.0); Specific Gravity - Urine 1.020 (1.005-1.025); UMIC TRIGGER UACC YES
[2025-07-29 10:37] LABS: Alanine Aminotransferase 48 U/L (0-31); Albumin Level 4.6 g/dL (3.5-5.0); Alkaline Phosphatase 140 U/L (39-117); Anion Gap 11 (12-20); Aspartate Amino Transferase 37 U/L (5-31); Blood Urea Nitrogen 18 mg/dL (9-16); Calcium 9.1 mg/dL (8.4-10.2); Carbon Dioxide 29 mmol/L (22-29); Chloride 107 mmol/L (96-108); Cholesterol 196 mg/dL (<200); Estimated Glomerular Filt Rate > 60; HDL Cholesterol 66 mg/dL (>40); Potassium 4.1 mmol/L (3.3-5.1); Sodium 143 mmol/L (135-145); Total Protein 7.1 g/dL (6.5-8.0); Triglycerides 73 mg/dL (<150)
== END 2025-07-29 08:55 | disposition home or self-care (01) ==
LOC: HO.XRAY 08:54
PROVIDERS: PCP Internal Medicine
DX: Z01.818 Encounter for other preprocedural examination (principal); E78.2 Mixed hyperlipidemia; F41.9 Anxiety disorder, unspecified; M80.80XS Other osteoporosis with current pathological fracture, unspecified site, sequela; E66.3 Overweight; M54.50 Low back pain, unspecified; R74.8 Abnormal levels of other serum enzymes; Z91.09 Other allergy status, other than to drugs and biological substances
CPT/HCPCS: 36415; 72100; 80053; 80061; 81001; 81003; 84443; 85025; 85610

== ENCOUNTER → 2025-07-29 09:19 | Outpatient (BNV) | payer BC, SELFPAY | PROVIDERS: PCP Internal Medicine; Visit Provider Radiology Diagnostic Radiology | DX: M51.370 Other intervertebral disc degeneration, lumbosacral region with discogenic back pain only (principal) | CPT/HCPCS: 72100 ==